=== PATIENT | female | born 1935 | race Caucasian/White ===

== ENCOUNTER 2020-02-19 11:20 | Outpatient (CLI) | payer MEDICARE, OTHER, SELFPAY ==
--- NOTE | 2020-02-19 11:32 | MM_ITS ---
WS: [id number] RIGHT DIGITAL MAMMOGRAPHY WITH CAD CLINICAL INFORMATION: HX OF BREAST CA;LT MAST COMPARISON: 019 and TECHNIQUE: 3 views of the right breast were obtained. FINDINGS: Scattered fibroglandular densities of the right breast. Vascular calcifications. Right breast is unch anged in appearance. No suspicious focal mass, asymmetry, calcifications, or architectural distortion. No evidence of erika gnancy. MM/[place] [id number] IMPRESSION: BI-RADS: 2-Benign FOLLOW UP: 1 Year Follow-up Recommend return to annual diagnostic mammography.
== END 2020-02-19 11:21 | disposition home or self-care (01) ==
LOC: RADSHAW 11:31
PROVIDERS: PCP Family Medicine; Visit Provider Family Medicine
DX: Z85.3 Personal history of malignant neoplasm of breast (principal)
CPT/HCPCS: 77065

== ENCOUNTER 2021-03-01 13:33 | Outpatient (CLI) | payer MEDICARE, OTHER, SELFPAY ==
--- NOTE | 2021-03-01 13:42 | MM_ITS ---
WS: [id number] RIGHT DIGITAL MAMMOGRAPHY WITH CAD CLINICAL INFORMATION: HX OF BREAST CA;LT MASTECTOMY HISTORY: COMPARISON: February 19, 2020 TECHNIQUE: 4 views of the right breast were obtained. FINDINGS: Scattered fibroglandular densities of the right breast. Punctate and lucent centered calcifications. Vascular calcification. No suspicious focal mass, asymmetry, calcifications, or architectural distortion. No evidence of erika gnancy. MM/[place] [id number] IMPRESSION: BI-RADS: 2-Benign FOLLOW UP: 1 Year Follow-up Recommend return to annual screening mammography.
== END 2021-03-01 13:34 | disposition home or self-care (01) ==
LOC: RADSHAW 13:40
PROVIDERS: PCP Family Medicine; Visit Provider Family Medicine
DX: Z85.3 Personal history of malignant neoplasm of breast (principal); Z90.12 Acquired absence of left breast and nipple
CPT/HCPCS: 77065

== ENCOUNTER 2022-03-11 10:49 | Outpatient (CLI) | payer MEDICARE, OTHER, SELFPAY ==
--- NOTE | 2022-03-11 10:54 | MM_ITS ---
WS: [id number] VIEWS: MLO, CC, and ML views of the right breast. 3D digital tomosynthesis is also included in this exam. Comparison made with prior exam of 01/04/2016, 01/04/2017, 01/05/2018, 01/11/2019, 02/19/2020, 03/01/2021. . Findings: There was no sign of mass, architectural distortion or suspicious calcification in the right breast. Scattered fibroglandular densities MM/[place] [id number] Impression: BI-RADS: 2-Benign FOLLOW-UP: 1 Year Follow-up This mammogram was also analyzed by the Computer Aided Detection System R2 Imag e Aluminum Container Tester.
== END 2022-03-11 10:50 | disposition home or self-care (01) ==
LOC: RAD 10:52
PROVIDERS: PCP Family Medicine; Visit Provider Family Medicine
DX: Z85.3 Personal history of malignant neoplasm of breast (principal)
CPT/HCPCS: 77061

== ENCOUNTER 2023-01-02 17:48 | Inpatient (IN) | payer MEDICARE, OTHER, SELFPAY ==
[2023-01-02] VITALS (21 sets, daily range): BP systolic 116–169; BP diastolic 36–72; PULSE 37–68; RESP 16–22; TEMP 36.4–36.6; O2SAT 92–96; BMI 31.9; BMI 27.2
--- NOTE | 2023-01-02 17:57 | CTR_ITS ---
PROCEDURE INFORMATION: Exam: CT Head Without Contrast Exam date and time: 01/02/2023 6:10 PM Age: 87 years old Clinical indication: Altered mental status/memory loss; Additional info: AMS TECHNIQUE: Imaging protocol: Computed tomography of the head without contrast. Radiation optimization: All CT scans at this facility use at least one of these dose optimization techniques: automated exposure control; mA and/or kV adjustment per patient size (includes targeted exams where dose is matched to clinical indication); or iterative reconstruction. REPORTING DATA: Count of CT and Cardiac NM exams in prior 12 months: This patient has received 0 known CTs and 0 known cardiac nuclear medicine studies in the 12 months prior to the current study. COMPARISON: 1. MR head wo/w contrast 10/19/2016 12:[address] head wo contrast 10/18/2016 10:54 AM RADIATION DOSE METRICS: Total DLP (mGy-cm): 1168.8 FINDINGS: Brain: No acute intracranial hemorrhage, acute large territory infarct, or obvious mass lesion. Age appropriate diffuse cerebral volume loss. Chronic white matter changes, likely to be chronic small vessel ischemic changes. Old lacunar infarct near the genu of the left internal capsule. Cerebral ventricles: No ventriculomegaly. Paranasal sinuses: Visualized sinuses are unremarkable. No fluid levels. Mastoid air cells: Visualized mastoid air cells are well aerated. Bones/joints: Unremarkable. No acute fracture. Soft tissues: Unremarkable. CT/CT head wo con* [id number] IMPRESSION: No acute intracranial abnormality.
--- NOTE | 2023-01-02 17:57 | XRR_ITS ---
PROCEDURE INFORMATION: Exam: XR Chest Exam date and time: 01/02/2023 6:04 PM Age: 87 years old Clinical indication: Other: Weakness; Additional info: AMS TECHNIQUE: Imaging protocol: Radiologic exam of the chest. Views: 1 view. COMPARISON: CR XR chest 1V [id number] 10/18/2016 10:20 AM FINDINGS: Lungs: Retrocardiac area not well seen, so difficult to exclude left basilar atelectasis or consolidation. Lungs are otherwise clear. Pleural spaces: Unremarkable. No pleural effusion. No pneumothorax. Heart/Mediastinum: Cardiomediastinal silhouette is stable with a large hiatal hernia. Bones/joints: No acute osseous abnormality. Soft tissues: Stable postoperative changes in the left breast/axilla. XR/XR chest 1V portable [id number] IMPRESSION: 1. Cardiomediastinal silhouette is stable with a large hiatal hernia. 2. Retrocardiac area not well seen, so difficult to exclude left basilar atelectasis or consolidation.
--- NOTE | 2023-01-02 17:57 | ECG_ITS ---
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 Measurements Intervals [place] Rate: 38 P: 0 [place]: 0 QRS: 80 QRSD: 126 T: 21 QT: 493 QTc: 394 Interpretive Statements JUNCTIONAL RHYTHM RIGHT BUNDLE BRANCH BLOCK [120+ ms QRS DURATION, UPRIGHT V1, 40+ ms S IN I/aVL/V4/V5/V6] CRITICAL TEST RESULT Compared to ECG 10/18/2016 15:35:10 Right bundle-branch block now present Sinus bradycardia no longer present Electronically Signed On 01-03-2023 6:43:22 CDT by Sarah Earl M.D. [id number]
--- NOTE | 2023-01-02 18:28 | ED_ITS ---
HPI - Weakness General: Chief complaint: Weakness Stated complaint: weakness Time Seen by Provider: 01/02/23 17:53 Source: EMS Mode of arrival: EMS Limitations: altered mental status History of Present Illness: 87-year-old female here from home with EMS complaint of EMS was weakness and they state that family had called because she had been increasingly weak throughout the day not been able to get her up from I can get from EMS I have not been able speak to family last known well was yesterday. He states that also know she was pale. She is bradycardic by EMS and the junctional rhythm in the 30s blood pressure is normal she is quite confused when I interviewed her she is able to tell me her name but unable to answer any questions she does not know where she is she does not know the year and does not make much sense at all. 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 and left distal vertebral artery, nonstenotic atherosclerotic plaque of the origin of the right cervical internal carotid artery COPD (chronic obstructive pulmonary disease) CVA (cerebral vascular accident) 2017 left basal ganglia Diabetes mellitus, type II History of echocardiogram 2017 EF 60%, grade I/IV diastolic dysfunction Hyperlipidemia Hypertension Macular degeneration Osteoarthritis of left knee Osteoarthritis of right knee Peripheral vascular disease Surgical History (Updated 01/02/23 @ 20:45 by Priti Long MD) History of hernia repair History of hysterectomy History of left mastectomy S/P peripheral artery angioplasty with stent placement left leg 2010 Family History (Updated 01/02/23 @ 20:46 by Priti Long MD) Mother Stroke Brain tumor Social History (Updated 01/02/23 @ 20:46 by Priti Long MD) 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 Physical Exam Const: COMMON NORMALS: negative for patient oriented x3 GENERAL APPEARANCE: ill appearing and frail appearing HENMT: COMMON NORMALS: normocephalic and atraumatic HEAD & SCALP: normocephalic and atraumatic Eye: COMMON NORMALS: Equal, round and reactive pupils present and EOMs intact bilaterally PUPIL: Yes Equal, round and reactive pupils present Neck/C-Spine: COMMON NORMALS: full ROM and supple Chest: COMMONS NORMALS: normal inspection of the chest Resp: COMMON NORMALS: normal respiratory effort Cardio: COMMON NORMALS: No murmurs present (Cardio) RATE: bradycardic GI: INSPECTION: Yes normal to inspection Extremity: COMMON NORMALS: normal to inspection and full ROM Neuro: COMMON NORMALS: moves all extremities; negative for patient oriented x3 Psych: COMMON NORMALS: cooperative; negative for mental status grossly normal and negative for Normal thought process present THOUGHT PROCESS: abnormal Skin: COMMON NORMALS: no rashes or lesions noted and no wounds GENERAL SKIN EXAM: no rashes or lesions noted Course Vital Signs: Vital signs: Vital Signs Temperature 97.8 F 01/02/23 17:52 Pulse Rate 57 L 01/02/23 20:41 Respiratory Rate 22 H 01/02/23 20:41 Blood Pressure 123/59 01/02/23 20:41 Pulse Oximetry 96 01/02/23 20:41 Oxygen Delivery Me thod Room Air 01/02/23 20:11 MDM - Weakness Medical Decision Making Patient presents here with altered mental status she is also bradycardic her bradycardia is likely due to her hyperkalemia I did give her atropine also gave her calcium gluconate along with insulin and D50 had some mild anemia did transfuse her 1 unit did a rectal exam her stools brown slightly Hemoccult positive I believe her anemia is likely chronic spoke to family at length 81 to make patient DNR spoke to the hospitalist will admit to the ICU at this time. Medical Records I reviewed the patient's medical records. Lab Data I reviewed the patient's lab results. 01/02/23 18:28 01/02/23 19:28 Radiology Impressions Chest X-Ray 01/02/23 17:57 IMPRESSION: 1. Cardiomediastinal silhouette is stable with a large hiatal hernia. 2. Retrocardiac area not well seen, so difficult to exclude left basilar atelectasis or consolidation. Head CT 01/02/23 17:57 IMPRESSION: No acute intracranial abnormality. Laboratory Results WBC 9.0 10^3/uL (4.0-10.0) 01/02/23 18:28 RBC 2.38 10^6/uL (4.1-5.3) L 01/02/23 18:28 Hgb 7.4 g/dL (11.5-15.3) L 01/02/23: Hct 24.7 % (37.0-47.0) L 01/02/23 MCV 103.8 fl (81-99) H 01/02/23: MCH 31.1 pg (28.0-34.0) 01/02/23: MCHC 30.0 g/dL (30.0-36.0) 01/02/23: RDW 13.9 % (12.1-15.1) 01/02/23: Plt Count 183 10^3/cmm (130-400) 01/02/23 MPV 10.1 fL (7.4-10.4) 01/02/23 Neut % (Auto) 74.9 % 01/02/23: Lymph % (Auto) 16.3 % 01/02/23: [place] % (Auto) 8.0 % 01/02/23: Eos % (Auto) 0.0 % 01/02/23 Baso % (Auto) 0.2 % 01/02/23 Neut # (Auto) 6.73 10^3/uL (1.8-7.7) 01/02/23 Lymph # (Auto) 1.5 10^3/uL (0.8-4.8) 01/02/23 Dodge # (Auto) 0.7 10^3/uL (0.2-0.9) 01/02/23: Eos # (Auto) 0.0 10^3/uL (0.0-0.8) 01/02/23: Baso # (Auto) 0.0 10^3/uL (0.0-0.1) 01/02/23 Nucleated RBC % (auto) 0.4 % 01/02/23 Nucleated RBCs # 0.0 /100WBC 01/02/23: PT 15.30 SECONDS (12.1-14.9) H 01/02/23: INR 1.17 (0.8-1.2) 08/21/23 18:28 Specimen Type Arterial 01/02/23 19:48 Sample Site Brachial, left 01/02/23 19:48 ABG pH 7.39 (7.35-7.45) 01/02/23 19:48 ABG pCO2 27.8 mmHg (35-45) L 01/02/23 19:48 ABG pO2 67.9 mmHg (80.0-100.0) L 01/02/23 19:48 ABG HCO3 16.7 mmol/L (22-26) L 01/02/23 19:48 ABG Base Excess -7.5 mmol/L (-2.0-2.0) L 01/02/23 19:48 Jayy Test N/a 01/02/23 19:48 Hematocrit 20.8 % (37-47) L 01/02/23 19:48 O2 Delivery Device Nc 01/02/23 19:48 O2 Liters/Min 2.0 % 01/02/23 19:48 FiO2 28.0 % 01/02/23 19:48 Survey Technician ID [email or web address] 01/02/23 19:48 Sodium 135 mmol/L (136-145) L 01/02/23 18:28 Potassium 6.6 mmol/L (3.5-5.1) H* 01/02/23 19:28 Chloride 107 mmol/L (98-107) 01/02/23 18:28 Carbon Dioxide 13 mmol/L (22-29) L 01/02/23 18:28 Anion Gap 22.1 (5-19) H 01/02/23 18:28 BUN 46 mg/dL (8-23) H 01/02/23 18:28 Creatinine 1.8 mg/dL (0.5-0.9) H 01/02/23 18:28 GFR Calculation Not Reportable 01/02/23 18:28 Glucose 221 mg/dL (65-115) H 01/02/23 18:28 POC Glucose 250 mg/dL (70-110) H 01/02/23 18:37 Calculated Osmolality 299 mOsm/kg (285-295) H 01/02/23 18:28 Calcium 8.7 mg/dL (8.5-10.5) 01/02/23 18:28 Magnesium 1.4 mg/dL (1.7-2.3) L 01/02/23 18:28 Total Bilirubin 0.3 mg/dL (0.15-1.2) 01/02/23 18:28 AST 56 U/L (0-32) H 01/02/23 18:28 ALT 48 U/L (0-33) H 01/02/23 18:28 Alkaline Phosphatase 46 U/L (35-105) 01/02/23 18:28 Troponin T Baseline 35 ng/L (0-10) H 01/02/23 18:28 Total Protein 5.7 g/dL (6.6-8.7) L 01/02/23 18:28 Albumin 3.5 g/dL (3.5-5.2) 01/02/23 18:28 Globulin 2.2 g/dL (1.3-4.6) 01/02/23 18:28 Blood Type A Positive 01/02/23 19:24 Rho(D) Type Positive 01/02/23 19:24 Antibody Screen Negative 01/02/23 19:24 Crossmatch See Detail 01/02/23 19:24 EKG Data EKG 1: I personally reviewed and interpreted this EKG as follows: EKG interpretation date: 01/02/23 EKG interpretation time: 18:01 Interpretation: bradycardicia junctional hr [address] elevation qrs 126 qtc 414 Critical Care Time Critical Care Time: Critical Care Time: Yes Total Critical Care Time: 55 Attestation: The high probability of a clinically significant, sudden or life threatening deterioration of the patient's renal system(s) required my full and direct attention, intervention and personal management. The critical care time is as shown. This time is in addition to time spent performing any reported procedures but includes the following: [x] Data and vital sign review and interpretation [x] Patient assessment, examination and intervention [x] Documentation [x] Medication orders and management Discharge Plan Discharge Patient Disposition: Admitted As Inpatient Admit Provider: Priti Long Clinical Impression: Anemia, Acute hyperkalemia, Bradycardia, Altered mental status Condition: Stable Coding Level of Care Code ED Client Support Associate for Bessieg Santino
[2023-01-02 18:35] LABS: Basophils % 0.2 %; Hematocrit 24.7 % (37.0-47.0); Hemoglobin 7.4 g/dL (11.5-15.3); Lymphocytes # 1.5 10^3/uL (0.8-4.8); Lymphocytes % 16.3 %; Mean Corpuscular Hemoglobin 31.1 pg (28.0-34.0); Mean Corpuscular Volume 103.8 fl (81-99); Mean Platelet Volume 10.1 fL (7.4-10.4); Monocytes # 0.7 10^3/uL (0.2-0.9); Neutrophils # 6.73 10^3/uL (1.8-7.7); Neutrophils % 74.9 %; Nucleated Red Blood Cells % 0.4 %; Platelet Count 183 10^3/cmm (130-400); Red Blood Count 2.38 10^6/uL (4.1-5.3); Red Cell Distribution Width 13.9 % (12.1-15.1)
[2023-01-02 18:41] LABS: Glucose Point of Care 250 mg/dL (70-110)
[2023-01-02 18:51] LABS: INR 1.17 (0.8-1.2)
[2023-01-02 18:59] LABS: Troponin(5th) Baseline 35 ng/L (0-10)
[2023-01-02 19:13] LABS: Alanine Aminotransferase 48 U/L (0-33); Albumin Level 3.5 g/dL (3.5-5.2); Alkaline Phosphatase 46 U/L (35-105); Blood Urea Nitrogen 46 mg/dL (8-23); Calcium 8.7 mg/dL (8.5-10.5); Carbon Dioxide 13 mmol/L (22-29); Chloride 107 mmol/L (98-107); Globulin 2.2 g/dL (1.3-4.6); Glucose 221 mg/dL (65-115); Magnesium 1.4 mg/dL (1.7-2.3); Osmolality Calculated 299 mOsm/kg (285-295); Sodium 135 mmol/L (136-145); Total Bilirubin 0.3 mg/dL (0.15-1.2); Total Protein 5.7 g/dL (6.6-8.7)
[2023-01-02 19:24] LABS: Anion Gap 22.1 (5-19); Aspartate Amino Transferase 56 U/L (0-32)
[2023-01-02 19:25] LABS: Potassium 7.1 mmol/L (3.5-5.1)
[2023-01-02] MEDS: sodium chloride 0.9% 500 ML 999 ML IV (19:28)
[2023-01-02] MEDS: atropine 0.1 mg/mL Syr 10 mL 0.5 MG IVP (19:30)
[2023-01-02] MEDS: calcium gluconate 0.1 gm/mL 10% SDV 10mL 1 GM IVP (19:51)
[2023-01-02] MEDS: dextrose 50% syringe 50 mL IVP (19:52)
--- NOTE | 2023-01-02 19:57 | ECG_ITS ---
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 Measurements Intervals [place] Rate: 45 P: 0 [place]: 0 QRS: 75 QRSD: 117 T: -14 QT: 466 QTc: 407 Interpretive Statements SUPRAVENTRICULAR BRADYCARDIA INCOMPLETE RIGHT BUNDLE BRANCH BLOCK [90+ ms QRS DURATION, TERMINAL R IN V1/V2, 40+ ms S IN I/aVL/V4/V5/V6] ST DEVIATION AND MODERATE T-WAVE ABNORMALITY, CONSIDER ANTERIOR ISCHEMIA [-0.1+ mV T-WAVE IN V3/V4] Compared to ECG 01/02/2023 18:01:09 Incomplete right bundle-branch block now present T-wave abnormality now present Possible ischemia now present Right bundle-branch block no longer present Electronically Signed On 01-03-2023 6:58:36 CDT by Sarah Earl M.D. [id number]
[2023-01-02 19:58] LABS: ABG PCO2 27.8 mmHg (35-45); ABG PH Result 7.39 (7.35-7.45); Arterial Blood Gas Hematocrit 20.8 % (37-47); Base Excess ABG -7.5 mmol/L (-2.0-2.0); Blood Gas Sample Site Brachial, left; Blood Gas Sample Type Arterial; HCO3 ABG 16.7 mmol/L (22-26); Oxygen Device NC; PO2 ABG 67.9 mmHg (80.0-100.0)
[2023-01-02 20:06] LABS: Potassium 6.6 mmol/L (3.5-5.1)
[2023-01-02] MEDS: sodium bicarbonate 1 mEq/mL SDV 50mL 50 MEQ IVP (20:09)
[2023-01-02] MEDS: insulin regular-human 100 units/1 mL 10 UNIT IVP (20:15)
--- NOTE | 2023-01-02 20:21 | PM.HP ---
Providers/Chief Complaint Admitting Physician: Priti Long MD Primary Care Provider: Lb Akers MD Chief Complaint: weakness History of Present Illness Niya Gupta is a 87 year old female brought in by EMS due to complaints of weakness and confusion. She was in her usual state of health yesterday. This morning she seemed to be moving slower than normal but was able to get around independently using her cane in the early hours of the day. As the day progressed, according to her Carlos, she slowed down more more and was not able to walk around without assistance or attend her her usual ADLs quite the same way. She also seem to get more confused not able to answer questions. Carlos discussed things with his daughter who is a nurse and they called EMS. When EMS arrived her heart rate was noted to be in the 30s. Junctional rhythm. She is on chronic beta-blockade in the form of metoprolol. No clear history of previous arrhythmias or known coronary artery disease from available historical information. She has had some carotid artery disease/peripheral vascular disease previously identified and has known hypertension and history of hyperlipidemia. I believe the metoprolol is prescribed for hypertension. She has taken it regularly including today. No recent dosage changes. On arrival to the emergency room and blood pressure 116/36 with pulse ox of 92% on room air. Work-up ensued that demonstrated a potassium of 7.1 and creatinine of 1.8. Her hemoglobin was also noted to be low at 4. Last available comparative labs in our records are from 2017 showing a hemoglobin of 13.4 and a creatinine of 1.2. Stool per emergency room provider was brown and weakly Hemoccult positive. Patient herself has macular degeneration and very limited vision. She is unable to note any differences in stooling character. Denies constipation or diarrhea. She does complain of some left lower quadrant abdominal pain currently though I am unable to get indication of severity or chronicity from her currently. There have been no known episodes of nausea or vomiting per her and no complaints of abdominal pain or bowel problems mentioned. She has not had any urinary complaints though Carlos mentioned that she goes frequently. Repeat potassium level was still elevated at 6.6. Started a couple of liters of normal saline and given insulin and D50 plus calcium gluconate and bicarb. Twelve-lead EKG showed a regular bradycardic rhythm at 38 bpm with no discernible P waves. Repeat EKG with heart rate in the mid 40s showed similar pattern. Baseline troponin was 35 with a similar 2-hour delta. Gradually with treatment administered heart rate improved into the 60s. Blood pressure also improved. Review of home medications with external records and report from indicates that she is on hydrochlorothiazide, Aldactone, losartan in addition to metoprolol. Prior to today well patient has had a gradual decline as would be expected for somebody her age she has been able to get around independently. Issues today are quite new for her. In addition to the weakness and confusion, her indicated that she was quite pale compared to baseline. No reports of any bleeding is known. She has had a previous colonoscopy some years ago that was unrevealing. She is not on any blood thinners. She is on clopidogrel. No report of any [id number] NSAID use. Carlos has noted that for the past week or so Niya's legs have been more swollen than usual the right more so than the left. He tries to get her to elevate them but she does not always do that. She has a history of arthritis of both knees. She has had intra-articular steroids to both knees but no other steroid prescriptions or administrations. In talking with her she has been having dyspnea on exertion. Denies any chest pain. She is coming around and starting to communicate more but history is still quite limited. With her presentation request was made for admission for further care. She did receive one dose of atropine in the ED given degree of symptomatic. Review of Systems General: Reports: Other (ROS as per HPI or as otherwise noted here; limited by current condition) Medications/Allergies Home Medications Medication Instructions Recorded Confirmed Last Taken Type clopidogrel 75 mg tablet 75 mg PO DAILY 03/03/22 12/13/22 Unknown History metformin 500 mg tablet 500 mg PO BID 03/03/22 12/13/22 Unknown History spironolactone 25 mg tablet 25 mg PO BID 03/03/22 12/13/22 Unknown History lovastatin 40 mg tablet See Rx Instructions .Route 09/20/22 12/13/22 Unknown Rx .COMPLEX #90 tabs hydrochlorothiazide 25 mg tablet See Rx Instructions .Route 12/07/22 12/13/22 Unknown Rx .COMPLEX #90 tabs metoprolol tartrate 100 mg tablet See Rx Instructions .Route 12/07/22 12/13/22 Unknown Rx .COMPLEX #180 tabs amlodipine 5 mg tablet See Rx Instructions .Route 12/27/22 Unknown Rx .COMPLEX #180 tabs gabapentin 300 mg capsule See Rx Instructions .Route 12/27/22 Unknown Rx .COMPLEX #270 caps glimepiride 1 mg tablet See Rx Instructions .Route 12/27/22 Unknown Rx .COMPLEX #180 tabs losartan 50 mg tablet See Rx Instructions .Route 12/27/22 Unknown Rx .COMPLEX #180 tabs Allergies Allergy/AdvReac Type Severity Reaction Status Date / Time propoxyphene Allergy Severe Unknown Verified 12/20/21 07:12 [From [facility]] Additional Medication Information THIS IS PATIENTS EXTERNAL MEDICATION LIST which I reviewed with . She has been out of glimepiride for about 4 days but otherwise this is an accurate list. Carlos sets up all of Niya's medications. Very unlikely that she would have taken more than prescribed at any point in time and no evidence that he is aware of to suggest such. She is unable to read which is why he manages medicines for her. 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 and left distal vertebral artery, nonstenotic atherosclerotic plaque of the origin of the right cervical internal carotid artery CVA (cerebral vascular accident) 2017 left basal ganglia Diabetes mellitus, type II History of echocardiogram 2017 EF 60%, grade I/IV diastolic dysfunction Hyperlipidemia Hypertension Macular degeneration Osteoarthritis of left knee Osteoarthritis of right knee Peripheral vascular disease Surgical History (Updated 01/02/23 @ 20:45 by Priti Long MD) History of hernia repair History of hysterectomy History of left mastectomy S/P peripheral artery angioplasty with stent placement left leg 2010 Family History (Updated 01/02/23 @ 20:46 by Priti Long MD) Mother Stroke Brain tumor Social History (Updated 01/02/23 @ 20:46 by Priti Long MD) 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 She is oriented to person and able to answer simple questions with short responses but not necessarily oriented to place or situation at this time. Normocephalic. Extraocular movements are intact. Conjunctive a are pale. Oral mucosa are also pale. Dentures noted. Neck is supple. Lungs are clear anteriorly but decreased at both bases. Cardiovascular exam reveals a regular rhythm in the 60s. Heart sounds are slightly distant. No murmurs or rubs noted. Abdomen is soft with positive bowel sounds. Tenderness noted in the left lower quadrant without any rebound or guarding. Evidence of previous left mastectomy with breast reconstruction noted though scars are difficult to visualize. There is some swelling of the left upper arm compared to the right upper arm. Without knowledge of prior mastectomy, 2 IVs were placed in the left upper extremity. Both lower extremities with some pitting edema left 1+, right 2+. Right lower extremity is approximately a centimeter and a half larger in diameter than left lower extremity. No palpable cords. Brisk capillary refill to both feet. Distal pulses are 1+ and equal bilaterally. Skin is dry. Overall pale. No large areas of bruising noted. Speech is clear. Face is symmetric. Moves all extremities. Data 01/02/23 18:28 01/02/23 19:28 Other Labs: Radiology Impressions Chest X-Ray 01/02/23 17:57 IMPRESSION: 1. Cardiomediastinal silhouette is stable with a large hiatal hernia. 2. Retrocardiac area not well seen, so difficult to exclude left basilar atelectasis or consolidation. Head CT 01/02/23 17:57 IMPRESSION: No acute intracranial abnormality. Laboratory Tests 01/02/23 18:28 Potassium 7.1 H* Laboratory Results WBC 9.0 10^3/uL (4.0-10.0) 01/02/23 18:28 RBC 2.38 10^6/uL (4.1-5.3) L 01/02/23 18:28 Hgb 7.4 g/dL (11.5-15.3) L 01/02/23 18:28 Hct 24.7 % (37.0-47.0) L 01/02/23 18: MCV 103.8 fl (81-99) H 01/02/23 18: MCH 31.1 pg (28.0-34.0) 01/02/23 18: MCHC 30.0 g/dL (30.0-36.0) 01/02/23 18: RDW 13.9 % (12.1-15.1) 01/02/23: Plt Count 183 10^3/cmm (130-400) 01/02/23 18: MPV 10.1 fL (7.4-10.4) 01/02/23 18: Neut % (Auto) 74.9 % 01/02/23 18: Lymph % (Auto) 16.3 % 01/02/23 18: [place] % (Auto) 8.0 % 01/02/23: Eos % (Auto) 0.0 % 01/02/23 18: Baso % (Auto) 0.2 % 01/02/23: Neut # (Auto) 6.73 10^3/uL (1.8-7.7) 01/02/23 18: Lymph # (Auto) 1.5 10^3/uL (0.8-4.8) 01/02/23 18: [place] # (Auto) 0.7 10^3/uL (0.2-0.9) 01/02/23 18: Eos # (Auto) 0.0 10^3/uL (0.0-0.8) 01/02/23: Baso # (Auto) 0.0 10^3/uL (0.0-0.1) 01/02/23: Nucleated RBC % (auto) 0.4 % 01/02/23: Nucleated RBCs # 0.0 /100WBC 01/02/23 18: PT 15.30 SECONDS (12.1-14.9) H 01/02/23 18: INR 1.17 (0.8-1.2) 01/02/23 18: Specimen Type Arterial 01/02/23 19:48 Sample Site Brachial, left 01/02/23 19:48 ABG pH 7.39 (7.35-7.45) 01/02/23 19:48 ABG pCO2 27.8 mmHg (35-45) L 01/02/23 19:48 ABG pO2 67.9 mmHg (80.0-100.0) L 01/02/23 19:48 ABG HCO3 16.7 mmol/L (22-26) L 01/02/23 19:48 ABG Base Excess -7.5 mmol/L (-2.0-2.0) L 01/02/23 19:48 Jayy Test N/a 01/02/23 19:48 Hematocrit 20.8 % (37-47) L 01/02/23 19:48 O2 Delivery Device Nc 01/02/23 19:48 O2 Liters/Min 2.0 % 01/02/23 19:48 FiO2 28.0 % 01/02/23 19:48 Director Of Hotel ID [email or web address] 01/02/23 19:48 Sodium 135 mmol/L (136-145) L 01/02/23 18:28 Potassium 6.6 mmol/L (3.5-5.1) H* 01/02/23 19:28 Chloride 107 mmol/L (98-107) 01/02/23 18:28 Carbon Dioxide 13 mmol/L (22-29) L 01/02/23 18:28 Anion Gap 22.1 (5-19) H 01/02/23 18:28 BUN 46 mg/dL (8-23) H 01/02/23 18:28 Creatinine 1.8 mg/dL (0.5-0.9) H 01/02/23 18:28 GFR Calculation Not Reportable 01/02/23 18:28 Glucose 221 mg/dL (65-115) H 01/02/23 18:28 POC Glucose 169 mg/dL (70-110) H 01/02/23 22:26 Calculated Osmolality 299 mOsm/kg (285-295) H 01/02/23 18:28 Calcium 8.7 mg/dL (8.5-10.5) 01/02/23 18:28 Magnesium 1.4 mg/dL (1.7-2.3) L 01/02/23 18:28 Total Bilirubin 0.3 mg/dL (0.15-1.2) 01/02/23 18:28 AST 56 U/L (0-32) H 01/02/23 18:28 ALT 48 U/L (0-33) H 01/02/23 18:28 Alkaline Phosphatase 46 U/L (35-105) 01/02/23 18:28 Troponin T Baseline 35 ng/L (0-10) H 01/02/23 18:28 Troponin T 120 Minute 34.10 ng/L (0-10) H 01/02/23 20:55 Delta Troponin T -0.90 ABS# (0-10) L 01/02/23 20:55 Total Protein 5.7 g/dL (6.6-8.7) L 01/02/23 18:28 Albumin 3.5 g/dL (3.5-5.2) 01/02/23 18:28 Globulin 2.2 g/dL (1.3-4.6) 01/02/23 18:28 Urine Color Yellow (Yellow) 01/02/23 22:05 Urine Appearance Clear (CLEAR) 01/02/23 22:05 Urine pH 6 (5-7) 01/02/23 22:05 Ur Specific [place] 1.010 (1.005-1.030) 01/02/23 22:05 Urine Protein Neg (Negative) 01/02/23 22:05 Urine Glucose (UA) Norm (Normal) 01/02/23 22:05 Urine Ketones Negative (Negative) 01/02/23 22:05 Urine Blood Neg (Negative) 01/02/23 22:05 Urine Nitrate Negative (Negative) 01/02/23 22:05 Urine Bilirubin Neg (Negative) 01/02/23 22:05 Urine Urobilinogen Neg mg/dL (Negative) 01/02/23 22:05 Ur Leukocyte Esterase 1+ (Negative) H 01/02/23 22:05 Urine RBC 0-4 /hpf (0-2) H 01/02/23 22:05 Urine WBC 0-4 /hpf (0-5) H 01/02/23 22:05 Ur Squamous Epith Cells 0-4 /hpf (0-5) H 01/02/23 22:05 Amorphous Sediment Not Reportable 01/02/23 22:05 Urine Bacteria 2+ /hpf (NONE) H 01/02/23 22:05 Blood Type A Positive 01/02/23 19:24 Rho(D) Type Positive 01/02/23 19:24 Antibody Screen Negative 01/02/23 19:24 Crossmatch See Detail 01/02/23 19:24 A&P Assessment and plan (1) Altered mental status: Confusion/disorientation along with generalized weakness occurring somewhat acutely today. Most likely secondary to bradycardia in the setting of metabolic abnormalities including hyperkalemia, acute kidney injury and hypomagnesemia. (2) Bradycardia: Junctional/supraventricular in a patient without a history of such. Heart rates as low as in the 30s initially. She is on chronic beta-blockade and did take it today. Clinically appears exacerbated by hyperkalemia in particular. Symptomatic with acute alteration in mental status, acute weakness, shortness of breath. Improving. (3) Acute hyperkalemia: In the setting of what looks to be acute kidney injury in a patient also on spironolactone and losartan. Symptomatic from this with EKG changes. Has responded to initial treatment administration in the emergency room and repeat level showing improvement though remains elevated. Unclear at this time if medications or acute kidney injury are the primary factor here. (4) Anemia: With macrocytosis. Last available comparative labs are from 2017 when hemoglobin was normal. I would expect iron deficiency given kidney disease and heme positive stools. She complains of left lower quadrant abdominal pain. No reports of any epigastric pain. Other than intra-articular steroids, no chronic use of NSAIDs or other definitive gastric irritants. She is on antiplatelet therapy in the form of Plavix. General weakness and shortness of breath has been gradually worsening over time from the information I been able to obtain is most likely secondary to progressive anemia. Had colonoscopy some years ago that was unremarkable. Platelets are normal. INR not elevated. (5) Acute kidney injury: Based on presentation. No recent comparative labs available. Chronic kidney disease that has progressed from available labs from 2017 is certainly a possibility. She has hypertension and diabetes. She is on 2 diuretics and ARB that might contribute acutely to kidney injury in the right setting. Most likely secondary to ATN from medications or hypotension. Has a associated anion gap acidosis which I currently attribute to acute kidney injury. (6) Edema of right lower extremity: Present on admission, noticeably more edematous than left lower extremity. Concern for DVT or other obstructive process, which given anemia presently would be difficult to treat. (7) Hypertension: Chronically on multiple medications including losartan, amlodipine, hydrochlorothiazide, Aldactone and metoprolol. Blood pressures at presentation as low as 110 systolic. Has not been hypotensive here though unidentified episodes of such are within the differential contributing to overall presentation. (8) Diabetes mellitus, type II: Chronically on metformin and glimepiride, she has been out of glimepiride for about 4 days (9) Hyperlipidemia: Chronically on statin therapy (10) Macular degeneration: Involving both eyes, not able to see well enough to read or provide description of stool or urine Plan Hypomagnesemia Mild transaminitis Inpatient admission ICU care at least initially Telemetry monitoring Continue serial cardiac enzymes and EKGs Hold metoprolol Continue IV fluids Hold ARB and Aldactone Status post insulin and D50, calcium gluconate and bicarbonate in the emergency room. Recheck chemistries in the morning, sooner if recurrent severe bradycardia or other concerning changes If bradycardia persists with improved potassium level and holding of metoprolol will consider cardiology evaluation Replace magnesium Nath catheter for close monitoring of urine output Hold hydrochlorothiazide Repeat renal function in am Monitor respiratory status with fluid administration and holding of diuretics Check TIBC, B12 and folate levels Currently receiving transfusion ordered from ER Repeat hemoglobin in the morning after transfusion With fluids actual baseline hemoglobin may have been lower BID PPI Hold plavix presently Could consider endoscopy given heme positive stools but with comorbid acute and chronic issues along with advanced age, medical management may be the most desirable approach per discussion with Monitor LLQ abdominal pain for worsening and indication to eval further Stool softners Venous duplex RLE Monitor blood pressures Can continue amlodipine as needed for hypertension as blood pressures allow Check CK level Currently holding statin therapy Hold metformin and glimepiride with acute issues; sliding scale insulin as needed for diabetes Holding gabapentin presently PT evalualation Neurochecks q shift S/P CT head in ER Supportive care otherwise Plans were discussed with patient's and he was given an opportunity to ask questions. Also reviewed with nursing staff. VTE prophylaxis: SCDs GI Prophylaxis: Twice daily PPI Telemetry: Currently warranted secondary to bradycardia at presentation Nath: Currently ordered for close monitoring of urine output in a patient with acute kidney injury and electrolyte abnormalities receiving fluids who has had several diuretics and antihypertensives held Line(s): Has 2 peripheral IVs currently in the left arm which will need to be changed over to right arm or other locations given history of left mastectomy Disposition plan: Currently anticipate discharge home with . Will need close outpatient follow-up with primary care provider. Depending on clinical course and determine needs may benefit from short-term home health for blood pressure and heart rate checks, follow-up laboratory studies along with medication management plus or minus therapy. Code Status: To be allowed natural although ICU care and treatment for current condition as outlined desired. Attestations Medical Necessity Statement*: Anticipated stay greater than two midnights in this patient with symptomatic bradycardia and hyperkalemia along with acute kidney injury and other issues as noted above. She had acute change today and is currently requiring IV fluids, holding of essentially all but one of her medications, cardiac monitoring and other care as described. Without such intervention at risk of further acute decline up to and including the possibility of . and High Time for a total of 85 minutes, includes reviewing past or interval history, examining/interviewing patient, placing orders, updating patient/family/other support, discussing plan of care with staff and documenting encounter Diagnoses Altered mental status R41.82 Bradycardia R00.1 Acute hyperkalemia E87.5 Anemia D64.9 Acute kidney injury N17.9 Edema of right lower extremity R60.0 Hypertension I10 Diabetes mellitus, type II E11.9 Hyperlipidemia E78.5 Macular degeneration H35.30
--- NOTE | 2023-01-02 22:18 | PC.NURSE ---
Addendum entered by Elisabeth Martinez RN 01/03/23 00:12: IV's in L.arm removed post blood transfusion. See TAR for blood transfusion end time. Original Note: Admission Note: Pt arrived to ICU 12 @2037 from ER. Continuos Cardiac monitoring initiated. Swelling noted in L. arm. Dr. Lin ordered to remove IV present in L. Arm post blood transfusion. R. arm IV bad. Difficulty obtaining IV access. Dr. Lin aware. Pt is A&Ox1. Fall risk precautions in place. Swelling noted in R. Leg, SCDs not applied @ this time, Dr. Lin @bedside to access.
[2023-01-02 22:22] LABS: Add Urine Microscopic? YES; Bilirubin Urine Neg (Negative); Blood Urine Neg (Negative); Glucose Urine UA Norm (Normal); Ketones Urine Negative (Negative); Leukocyte Esterase Urine 1+ (Negative); Nitrate Urine Negative (Negative); Protein Urine Neg (Negative); Urine Appearance Clear (CLEAR); Urine Color Yellow (Yellow); Urobilinogen Urine Neg (Negative); pH Urine 6 (5-7)
[2023-01-02 22:23] LABS: Add Urine Culture? No; Bacteria Urine 2+ /hpf; RBC Urine 0-4 /hpf (0-2); Squamous Epithelial Cell Urine 0-4 /hpf (0-5); WBC Urine 0-4 /hpf (0-5)
[2023-01-02 22:28] LABS: Glucose Point of Care 169 mg/dL (70-110)
[2023-01-02] MEDS: insulin lispro 100 unit/1 mL SUBCUT (22:30)
[2023-01-02] MEDS: sodium chloride 0.9% 100 mL Bag 50 ML IV (22:55)
[2023-01-02] MEDS: sodium chloride 0.9% 1,000 ML 100 ML IV (23:10)
[2023-01-02] MEDS: magnesium sulfate premix 2 GM/50 ML PIGGYBACK IV (23:12)
--- NOTE | 2023-01-02 23:17 | ECG_ITS ---
[facility] Test Date: 2023-01-02 Pat Name: Niya Gupta Department: Room: ICU12 Gender: Female Adoption Agent: FRANKI: 1935 Requested By: Pillo Hall Order Number: [id number] Donna MD: Xavier Christopher M.D. Measurements Intervals [place] Rate: 63 P: 0 SD: 160 QRS: 68 QRSD: 124 T: -41 QT: 420 QTc: 432 Interpretive Statements SINUS RHYTHM RIGHT BUNDLE BRANCH BLOCK [120+ ms QRS DURATION, UPRIGHT V1, 40+ ms S IN I/aVL/V4/V5/V6] MODERATE T-WAVE ABNORMALITY, CONSIDER LATERAL ISCHEMIA [-0.1+ mV T-WAVE IN I/aVL/V5/V6] Compared to ECG 01/02/2023 19:47:08 Right bundle-branch block now present Incomplete right bundle-branch block no longer present T-wave abnormality still present Possible ischemia still present Electronically Signed On 01-04-2023 20:11:19 CDT by Xavier Christopher M.D. [email or web address]
--- NOTE | 2023-01-02 23:23 | PC.NURSE ---
Medications given late d/t difficulty placing IV in R. arm. Dr. Lin aware. See MAR for administration times. 18G ultrasound IV placed in R. Upper arm. 5 total IV attempts.
[2023-01-03] VITALS (41 sets, daily range): BP systolic 105–163; BP diastolic 48–93; PULSE 60–162; RESP 14–29; TEMP 36.8–36.9; O2SAT 90–96
--- NOTE | 2023-01-03 00:15 | USCV_ITS ---
Niya Gupta Age: 87 Gender: F : 1935 Exam Date: 01/03/2023 00:56 Ordering Phys: Priti Long MD Technologist: CT Exam Location: [facility] [place]_ Indication: PROCEDURES: Venous duplex imaging was performed in only the right lower extremity. On the right side, the common femoral, superficial femoral, profunda femoral, popliteal, posterior tibial, greater saphenous veins and the peroneal trunk were identified and interrogated in the standard fashion. These veins were found to be easily compressible with spontaneous blood flow. No evidence of insufficiency or thrombus noted. FINDINGS: normal us CONCLUSIONS No evidence of right lower extremity DVT. Usman Thomas MD (Electronically Signed) Final Date: 03 January 2023 09:08 S
[2023-01-03 00:48] LABS: Troponin 5 6HR 33.97 ng/L (0-10)
[2023-01-03 00:49] LABS: Troponin 5 6HR Delta -1.03 ng/L (0-12)
[2023-01-03 00:58] LABS: Iron 57 ug/dL (37-145); Percent Saturation 18.5 % (20-50); Total Iron Binding Capacity 307 mcg/dl; Unsaturated Iron Binding 250 ug/dL (112-347)
[2023-01-03 05:01] LABS: Basophils # 0.1 10^3/uL (0.0-0.1); Basophils % 0.7 %; Eosinophils % 0.4 %; Hematocrit 26.7 % (37.0-47.0); Hemoglobin 8.6 g/dL (11.5-15.3); Lymphocytes # 1.6 10^3/uL (0.8-4.8); Mean Corpuscular HGB Conc 32.2 g/dL (30.0-36.0); Mean Corpuscular Hemoglobin 31.3 pg (28.0-34.0); Mean Corpuscular Volume 97.1 fl (81-99); Mean Platelet Volume 9.9 fL (7.4-10.4); Monocytes # 0.6 10^3/uL (0.2-0.9); Monocytes % 8.7 %; Neutrophils # 4.66 10^3/uL (1.8-7.7); Neutrophils % 66.6 %; Nucleated Red Blood Cells % 0.4 %; Platelet Count 171 10^3/cmm (130-400); Red Blood Count 2.75 10^6/uL (4.1-5.3); Red Cell Distribution Width 14.4 % (12.1-15.1)
[2023-01-03 05:17] LABS: Partial Thromboplastin Time 36.4 SECONDS (23.9-36.7)
[2023-01-03 05:35] LABS: Alanine Aminotransferase 87 U/L (0-33); Albumin Level 3.5 g/dL (3.5-5.2); Alkaline Phosphatase 46 U/L (35-105); Anion Gap 12.6 (5-19); Aspartate Amino Transferase 115 U/L (0-32); Blood Urea Nitrogen 38 mg/dL (8-23); Calcium 8.8 mg/dL (8.5-10.5); Carbon Dioxide 22 mmol/L (22-29); Chloride 109 mmol/L (98-107); Creatine Phosphokinase 51 U/L (26-192); Glucose 83 mg/dL (65-115); Magnesium 1.7 mg/dL (1.7-2.3); Osmolality Calculated 296 mOsm/kg (285-295); Phosphorus 3.2 mg/dL (2.5-4.5); Potassium 4.6 mmol/L (3.5-5.1); Sodium 139 mmol/L (136-145); Total Bilirubin 0.3 mg/dL (0.15-1.2); Total Protein 5.5 g/dL (6.6-8.7); Uric Acid 7.2 mg/dL (2.4-5.7)
[2023-01-03 06:09] LABS: Folate Level > 20.0 ng/mL (4.8-37.3)
[2023-01-03 06:20] LABS: Vitamin B12 283 pg/mL (232-1245)
[2023-01-03 09:39] LABS: Glucose Point of Care 93 mg/dL (70-110)
[2023-01-03] MEDS: pantoprazole DR 40 mg Tablet PO ×2 (09:47→17:34)
[2023-01-03] MEDS: amlodipine 5 mg Tablet PO (09:47)
[2023-01-03] MEDS: docusate sodium 100 mg Capsule PO ×2 (09:47→17:34)
[2023-01-03] MEDS: sodium chloride 0.9% 1,000 ML 100 ML IV ×2 (09:50→21:44)
[2023-01-03] MEDS: insulin lispro 100 unit/1 mL SUBCUT ×3 (13:00→21:45)
[2023-01-03 13:02] LABS: Glucose Point of Care 248 mg/dL (70-110)
--- NOTE | 2023-01-03 16:18 | P.PN_ITS ---
Subjective Subjective: Heart rate currently well maintained. Sinus rhythm ranging between 69 to 70 bpm. Hyperkalemia is now resolved. Patient denies any current symptoms. JENNY resolving with improved creatinine. Medications: Reviewed: Yes Vitals/I&O/Wt Last Vital Signs Temp 98.2 F 01/03/23 09:00 Pulse 68 01/03/23 16:00 Resp 20 H 01/03/23 16:00 BP 121/68 01/03/23 16:00 Pulse Ox 95 01/03/23 16:00 O2 Del Method Nasal Cannula 01/03/23 12:00 O2 Flow Rate 2 01/03/23 12:00 01/03/23 01/03/23 01/03/23 06:59 14:59 22:59 Intake Total 400 / 900 1360 / 1360 Output Total 1450 / 1450 Balance -1050 / -550 1360 / 1360 Weight last 48 hrs Weight 74.979 kg Weight 76.476 kg Weight 95.254 kg Physical Exam Narrative: General: No acute distress, AO x3 HEENT: PERRLA, pupils bilaterally equal and reactive, pallors not present Chest: Normal vesicular breath sounds, no added sounds, equal good air entry bilaterally CVS: S1-S2 regular, no murmurs, no tachycardia, no gallops, no rubs Abdomen: Soft, nontender, no organomegaly, bowel sounds present Neuro: No focal deficits, no facial deformity, AO x3, power 5/5 in all limbs Urinary Catheter Management: Nath: Cath Placed During This Visit: yes Reason for Continuing Indwelling Catheter: Accurate Measurement of Urinary Output in Critically Ill Patients Urinary Catheter Date of Insertion: 01/02/23 Urinary Catheter Time of Insertion: 21:00 Data 01/03/23 03:48 01/03/23 03:48 A&P Assessment and plan (1) Altered mental status: Confusion/disorientation along with generalized weakness occurring somewhat acutely Most likely secondary to bradycardia in the setting of metabolic abnormalities including hyperkalemia, acute kidney injury and hypomagnesemia. Mentation is improved today, family is at bedside. (2) Bradycardia: Currently in sinus rhythm after correction of hyperkalemia. Continue telemetry monitoring. (3) Acute hyperkalemia: Now resolved Continue to hold Aldactone and losartan (4) Anemia: Acute on chronic, hemoglobin currently stable (5) Acute kidney injury: Improving Continue to hold ARB's and spironolactone (6) Edema of right lower extremity: Present on admission, noticeably more edematous than left lower extremity. No evidence of DVT in bilateral lower extremities (7) Hypertension: Currently well controlled with holding her medications (8) Diabetes mellitus, type II: Insulin sliding scale while in the hospital (9) Hyperlipidemia: Chronically on statin therapy (10) Macular degeneration: Involving both eyes, not able to see well enough to read or provide description of stool or urine Plan VTE prophylaxis: SCDs GI Prophylaxis: Twice daily PPI Telemetry: Currently warranted secondary to bradycardia at presentation Line(s): Has 2 peripheral IVs currently in the left arm which will need to be changed over to right arm or other locations given history of left mastectomy Disposition plan: Currently anticipate discharge home with . Will need close outpatient follow-up with primary care provider. Depending on clinical course and determine needs may benefit from short-term home health for blood pressure and heart rate checks, follow-up laboratory studies along with medication management plus or minus therapy. Code Status: To be allowed natural Discontinue Nath, transfer out of ICU to cardiac stepdown Attestations Medical Necessity Statement*: Continued monitoring of electrolytes and acute kidney injury, junctional rhythm appears to have resolved currently, will monitor, if improving over the next 24 hours anticipate discharge home. Coding Level of Care Code Acute Code for [facility] Fwd Diagnoses Altered mental status R41.82 Bradycardia R00.1 Acute hyperkalemia E87.5 Anemia D64.9 Acute kidney injury N17.9 Edema of right lower extremity R60.0 Hypertension I10 Diabetes mellitus, type II E11.9 Hyperlipidemia E78.5 Macular degeneration H35.30
[2023-01-03 16:52] LABS: Glucose Point of Care 295 mg/dL (70-110)
[2023-01-03 22:03] LABS: Glucose Point of Care 162 mg/dL (70-110)
[2023-01-04] VITALS (10 sets, daily range): BP systolic 133–157; BP diastolic 51–83; PULSE 72–94; RESP 15–21; O2SAT 91–96; BMI 26.6
[2023-01-04 05:59] LABS: Alanine Aminotransferase 103 U/L (0-33); Albumin Level 3.4 g/dL (3.5-5.2); Alkaline Phosphatase 52 U/L (35-105); Anion Gap 13.4 (5-19); Aspartate Amino Transferase 77 U/L (0-32); Blood Urea Nitrogen 17 mg/dL (8-23); Calcium 8.8 mg/dL (8.5-10.5); Carbon Dioxide 22 mmol/L (22-29); Chloride 108 mmol/L (98-107); Globulin 2.3 g/dL (1.3-4.6); Glucose 176 mg/dL (65-115); Osmolality Calculated 294 mOsm/kg (285-295); Potassium 4.4 mmol/L (3.5-5.1); Sodium 139 mmol/L (136-145); Total Bilirubin 0.5 mg/dL (0.15-1.2); Total Protein 5.7 g/dL (6.6-8.7)
[2023-01-04 07:32] LABS: Glucose Point of Care 163 mg/dL (70-110)
[2023-01-04] MEDS: insulin lispro 100 unit/1 mL SUBCUT ×2 (08:16→11:33)
[2023-01-04] MEDS: pantoprazole DR 40 mg Tablet PO (08:16)
[2023-01-04] MEDS: docusate sodium 100 mg Capsule PO (08:16)
[2023-01-04] MEDS: amlodipine 5 mg Tablet PO (08:16)
[2023-01-04 11:28] LABS: Glucose Point of Care 261 mg/dL (70-110)
--- NOTE | 2023-01-04 12:54 | ECG_ITS ---
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 Measurements Intervals [place] Rate: 87 P: 97 MN: 167 QRS: 90 QRSD: 110 T: -53 QT: 386 QTc: 466 Interpretive Statements SINUS RHYTHM INCOMPLETE RIGHT BUNDLE BRANCH BLOCK [90+ ms QRS DURATION, TERMINAL R IN V1/V2, 40+ ms S IN I/aVL/V4/V5/V6] ST DEVIATION AND MODERATE T-WAVE ABNORMALITY, CONSIDER ANTEROLATERAL ISCHEMIA [-0.1+ mV T-WAVE IN V3-V6] ST DEVIATION AND MODERATE T-WAVE ABNORMALITY, CONSIDER INFERIOR ISCHEMIA [-0.1+ mV T-WAVE IN II/aVF] Compared to ECG 01/02/2023 23:17:44 Incomplete right bundle-branch block now present Right bundle-branch block no longer present T-wave abnormality still present Possible ischemia still present Electronically Signed On 01-04-2023 20:45:03 CDT by Xavier Christopher M.D. [email or web address] Corporation[facility].[employer]/store/Ov/[id number]
--- NOTE | 2023-01-04 13:42 | PM.DCS ---
Discharge Providers Date of Admission: 01/02/23 19:56 Date of Discharge: January 04, 2023 Attending Provider at Admission: Priti Long MD Attending Provider at Discharge: Kiersten Meza MD Primary Care Provider: Lb Akers MD Diagnoses at Discharge Discharge Diagnosis (1) Altered mental status: Status: Acute (2) Bradycardia: Status: Acute (3) Acute hyperkalemia: Status: Acute (4) Anemia: Status: Acute (5) Acute kidney injury: Status: Acute (6) Edema of right lower extremity: Status: Acute (7) Hypertension: Status: Chronic (8) Diabetes mellitus, type II: Status: Chronic (9) Hyperlipidemia: Status: Chronic (10) Macular degeneration: Status: Chronic Reason for Visit Reason for Visit: weakness Hospital Course Hospital Course Niya Gupta is a 87 year old female brought in by EMS due to complaints of weakness and confusion.?When EMS arrived her heart rate was noted to be in the 30s.? Junctional rhythm.? She is on chronic beta-blockade in the form of metoprolol.? No clear history of previous arrhythmias or known coronary artery disease from available historical information.?She is on metoprolol for HTN which she had taken. ?On arrival to the emergency room and blood pressure 116/36 with pulse ox of 92% on room air.? Work-up ensued that demonstrated a potassium of 7.1 and creatinine of 1.8. ?Her hemoglobin was also noted to be low at 7.4. Stool per emergency room provider was brown and weakly Hemoccult positive. She received treatment with IVF, insulin and D50 plus calcium gluconate and bicarb.Baseline troponin was 35 with a similar 2-hour delta.? Gradually with treatment administered heart rate improved into the 60s-80s, Rhythm converted to sinus rhythm with incomplete RBBB. Her home medications were adjusted- discontinued aldactone and HCTZ and losartan due to JENNY. Metoprolol has been held for now. Likely that bradycardia was more likely related to hyperkalemia, however would resume metoprolol only after trending HR trend over the next week. An event monitor has been ordered at discharge. with regards to her anemia, She had low TSI, low normal B12, supplementation was added at discharge. She has had a previous colonoscopy some years ago that was unrevealing. with comorbid acute and chronic issues along with advanced age, medical management may be the most desirable approach per discussion with . Her Jenny improved with holding medications, cr improved to 0.9 at discharge. Physical Exam Narrative: General: No acute distress, AO x3 HEENT: PERRLA, pupils bilaterally equal and reactive, pallors not present Chest: Normal vesicular breath sounds, no added sounds, equal good air entry bilaterally CVS: S1-S2 regular, no murmurs, no tachycardia, no gallops, no rubs Abdomen: Soft, nontender, no organomegaly, bowel sounds present Neuro: No focal deficits, no facial deformity, AO x3, power 5/5 in all limbs Urinary Catheter Management: Nath: Cath Placed During This Visit: yes, but has since been removed by the nurse Reason for Continuing Indwelling Catheter: Accurate Measurement of Urinary Output in Critically Ill Patients Urinary Catheter Date of Insertion: 01/02/23 Urinary Catheter Time of Insertion: 21:00 Date Urinary Catheter Removed: 01/03/23 Time Urinary Catheter Discontinued: 17:42 Discharge Data Studies Completed and Pending Completed Studies During Hospitalization Category Date Time Status CT head wo con* [id number] Stat Cat Scan 01/02/23 17:57 Completed XR chest 1V portable [id number] Stat Exams 01/02/23 17:57 Completed US venous duplex lower extremity RT [CV venous duplex Ultrasound 01/03/23 00:[place] [id number]] Routine Radiology Impressions Chest X-Ray 01/02/23 17:57 IMPRESSION: 1. Cardiomediastinal silhouette is stable with a large hiatal hernia. 2. Retrocardiac area not well seen, so difficult to exclude left basilar atelectasis or consolidation. Head CT 01/02/23 17:57 IMPRESSION: No acute intracranial abnormality. Laboratory Results WBC 7.0 10^3/uL (4.0-10.0) 01/03/23 03:48 RBC 2.75 10^6/uL (4.1-5.3) L 01/03/23 03:48 Hgb 8.6 g/dL (11.5-15.3) L 01/03/23 03:48 Hct 26.7 % (37.0-47.0) L 01/03/23 03:48 MCV 97.1 fl (81-99) D 01/03/23 03:48 MCH 31.3 pg (28.0-34.0) 01/03/23 03:48 MCHC 32.2 g/dL (30.0-36.0) D 01/03/23 03:48 RDW 14.4 % (12.1-15.1) 01/03/23 03:48 Plt Count 171 10^3/cmm (130-400) 01/03/23 03:48 MPV 9.9 fL (7.4-10.4) 01/03/23 03:48 Neut % (Auto) 66.6 % 01/03/23 03:48 Lymph % (Auto) 23.0 % 01/03/23 03:48 Ocean % (Auto) 8.7 % 01/03/23 03:48 Eos % (Auto) 0.4 % 01/03/23 03:48 Baso % (Auto) 0.7 % 01/03/23 03:48 Neut # (Auto) 4.66 10^3/uL (1.8-7.7) 01/03/23 03:48 Lymph # (Auto) 1.6 10^3/uL (0.8-4.8) 01/03/23 03:48 Ocean # (Auto) 0.6 10^3/uL (0.2-0.9) 01/03/23 03:48 Eos # (Auto) 0.0 10^3/uL (0.0-0.8) 01/03/23 03:48 Baso # (Auto) 0.1 10^3/uL (0.0-0.1) 01/03/23 03:48 Nucleated RBC % (auto) 0.4 % 01/03/23 03:48 Nucleated RBCs # 0.0 /100WBC 01/03/23 03:48 PT 15.30 SECONDS (12.1-14.9) H 01/02/23 18:28 INR 1.17 (0.8-1.2) 01/02/23 18:28 APTT 36.4 SECONDS (23.9-36.7) 01/03/23 03:48 Specimen Type Arterial 01/02/23 19:48 Sample Site Brachial, left 01/02/23 19:48 ABG pH 7.39 (7.35-7.45) 01/02/23 19:48 ABG pCO2 27.8 mmHg (35-45) L 01/02/23 19:48 ABG pO2 67.9 mmHg (80.0-100.0) L 01/02/23 19:48 ABG HCO3 16.7 mmol/L (22-26) L 01/02/23 19:48 ABG Base Excess -7.5 mmol/L (-2.0-2.0) L 01/02/23 19:48 Jayy Test N/a 01/02/23 19:48 Hematocrit 20.8 % (37-47) L 01/02/23 19:48 O2 Delivery Device Nc 01/02/23 19:48 O2 Liters/Min 2.0 % 01/02/23 19:48 FiO2 28.0 % 01/02/23 19:48 Elevator Repairer ID [email or web address] 01/02/23 19:48 Sodium 139 mmol/L (136-145) 01/04/23 04:57 Potassium 4.4 mmol/L (3.5-5.1) 01/04/23 04:57 Chloride 108 mmol/L (98-107) H 01/04/23 04:57 Carbon Dioxide 22 mmol/L (22-29) 01/04/23 04:57 Anion Gap 13.4 (5-19) 01/04/23 04:57 BUN 17 mg/dL (8-23) 01/04/23 04:57 Creatinine 0.9 mg/dL (0.5-0.9) 01/04/23 04:57 GFR Calculation Not Reportable 01/04/23 04:57 Glucose 176 mg/dL (65-115) H 01/04/23 04:57 POC Glucose 261 mg/dL (70-110) H 01/04/23 11:23 Calculated Osmolality 294 mOsm/kg (285-295) 01/04/23 04:57 Uric Acid 7.2 mg/dL (2.4-5.7) H 01/03/23 03:48 Calcium 8.8 mg/dL (8.5-10.5) 01/04/23 04:57 Phosphorus 3.2 mg/dL (2.5-4.5) 01/03/23 03:48 Magnesium 1.7 mg/dL (1.7-2.3) 01/03/23 03:48 Iron 57 ug/dL (37-145) 01/02/23 19:28 TIBC 307 mcg/dl 01/02/23 19:28 % Saturation 18.5 % (20-50) L 01/02/23 19:28 Unsat Iron Binding 250 ug/dL (112-347) 01/02/23 19:28 Total Bilirubin 0.5 mg/dL (0.15-1.2) 01/04/23 04:57 AST 77 U/L (0-32) H 01/04/23 04:57 ALT 103 U/L (0-33) H 01/04/23 04:57 Alkaline Phosphatase 52 U/L (35-105) 01/04/23 04:57 Creatine Kinase 51 U/L (26-192) 01/03/23 03:48 Troponin T Baseline 35 ng/L (0-10) H 01/02/23 18:28 Troponin T 120 Minute 34.10 ng/L (0-10) H 01/02/23 20:55 Delta Troponin T -0.90 ABS# (0-10) L 01/02/23 20:55 Troponin T Hi Sens 6Hr 33.97 ng/L (0-10) H 01/03/23 00:07 Troponin T Hi Sens 6Hr Delta -1.03 ng/L (0-12) L 01/03/23 00:07 Total Protein 5.7 g/dL (6.6-8.7) L 01/04/23 04:57 Albumin 3.4 g/dL (3.5-5.2) L 01/04/23 04:57 Globulin 2.3 g/dL (1.3-4.6) 01/04/23 04:57 Vitamin B12 283 pg/mL (232-1245) 01/03/23 03:48 Folate > 20.0 ng/mL (4.8-37.3) 01/03/23 03:48 TSH 2.80 uIU/mL (0.27-4.20) 01/03/23 03:48 Urine Color Yellow (Yellow) 01/02/23 22:05 Urine Appearance Clear (CLEAR) 01/02/23 22:05 Urine pH 6 (5-7) 01/02/23 22:05 Ur Specific [place] 1.010 (1.005-1.030) 01/02/23 22:05 Urine Protein Neg (Negative) 01/02/23 22:05 Urine Glucose (UA) Norm (Normal) 01/02/23 22:05 Urine Ketones Negative (Negative) 01/02/23 22:05 Urine Blood Neg (Negative) 01/02/23 22:05 Urine Nitrate Negative (Negative) 01/02/23 22:05 Urine Bilirubin Neg (Negative) 01/02/23 22:05 Urine Urobilinogen Neg mg/dL (Negative) 01/02/23 22:05 Ur Leukocyte Esterase 1+ (Negative) H 01/02/23 22:05 Urine RBC 0-4 /hpf (0-2) H 01/02/23 22:05 Urine WBC 0-4 /hpf (0-5) H 01/02/23 22:05 Ur Squamous Epith Cells 0-4 /hpf (0-5) H 01/02/23 22:05 Amorphous Sediment Not Reportable 01/02/23 22:05 Urine Bacteria 2+ /hpf (NONE) H 01/02/23 22:05 Blood Type A Positive 01/02/23 19:24 Rho(D) Type Positive 01/02/23 19:24 Antibody Screen Negative 01/02/23 19:24 Crossmatch See Detail 01/02/23 19:24 Vitals Last Vital Signs Temp 98.3 F 01/03/23 20:00 Pulse 85 01/04/23 12:00 Resp 21 H 01/04/23 12:00 BP 144/83 01/04/23 12:00 Pulse Ox 96 01/04/23 12:00 O2 Del Method Nasal Cannula 01/04/23 08:15 O2 Flow Rate 2 01/04/23 08:15 Discharge Plan Discharge Patient Disposition: Home Condition: Stable Prescriptions: New pantoprazole 40 mg Tablet,Delayed Release (Dr/Ec) 40 mg PO BID 30 Days Qty: 60 0RF ferrous sulfate 324 mg (65 mg iron) tablet,delayed release (DR/EC) 324 mg PO DAILY 30 Days Qty: 30 0RF vitamin B complex [B Complex-Vitamin B12] Tablet 1 tab PO DAILY Qty: 30 0RF Continued metformin 500 mg tablet 500 mg PO BID gabapentin 300 mg capsule See Rx Instructions .ROUTE .COMPLEX Qty: 270 3RF Dose Instruction: TAKE 1 CAPSULE BY MOUTH IN THE MORNING AND 2 IN THE EVENING Rx Instructions: TAKE 1 CAPSULE BY MOUTH IN THE MORNING AND 2 IN THE EVENING lovastatin 40 mg tablet 40 mg PO DAILY amlodipine 5 mg tablet 5 mg PO BID glimepiride 1 mg tablet 1 mg PO BID Held clopidogrel 75 mg tablet 75 mg PO DAILY Hold Instructions: Resume on 01/11/23. hold until PCP follow up Discontinued spironolactone 25 mg tablet 25 mg PO BID losartan 50 mg tablet 50 mg PO BID metoprolol tartrate 100 mg tablet 100 mg PO BID hydrochlorothiazide 25 mg tablet 25 mg PO DAILY Referrals: Lb Akers MD [Primary Care Provider] - Patient Instructions: Opioid Safety Discharge Attestations Time Spent in Discharge Care*: greater than 30 min Quality Metrics Clinical Quality Measures [ No reported AMI, CVA or VTE this stay] Coding Level of Care Code Acute Code for [facility] Fwd Diagnoses Altered mental status R41.82 Bradycardia R00.1 Acute hyperkalemia E87.5 Anemia D64.9 Acute kidney injury N17.9 Edema of right lower extremity R60.0 Hypertension I10 Diabetes mellitus, type II E11.9 Hyperlipidemia E78.5 Macular degeneration H35.30
--- NOTE | 2023-01-04 16:30 | PC.NURSE ---
All D/C instructions educated to patient, transported home by Daughter in law
== END 2023-01-04 16:31 | disposition home or self-care (01) | DRG 641 ==
LOC: ER 19:52 → ICU 19:58
PROVIDERS: Admitting Provider Hospitalist; Emergency Provider Emergency Medicine; PCP Family Medicine; Visit Provider Student in an Organized Health Care Education/Training Program
DX: E87.5 Hyperkalemia (principal); N17.9 Acute kidney failure, unspecified; I10 Essential (primary) hypertension; D64.9 Anemia, unspecified; Z79.84 Long term (current) use of oral hypoglycemic drugs; E78.5 Hyperlipidemia, unspecified; H35.30 Unspecified macular degeneration; Z85.3 Personal history of malignant neoplasm of breast; Z86.73 Personal history of transient ischemic attack (TIA), and cerebral infarction without residual deficits; E11.51 Type 2 diabetes mellitus with diabetic peripheral angiopathy without gangrene; M17.0 Bilateral primary osteoarthritis of knee; Z90.12 Acquired absence of left breast and nipple; E83.42 Hypomagnesemia; R00.1 Bradycardia, unspecified
CPT/HCPCS: 36415; 36416; 36430; 36600; 51702; 70450; 71045; 80053; 81001; 82550; 82607; 82746; 82803; 82962; 83540; 83550; 83735; 84100; 84132; 84443; 84484; 84550; 85025; 85610; 85730; 86850; 86900; 86920; 93005; 93971; 94760; 96361; 96372; 96374; 96375; 96376; 97110; 97161; 97530; 99285; J0461; J0612; J1815; J3475; J7030; J7040; P9016

== ENCOUNTER → 2023-01-17 08:38 | Outpatient (BNVA) | payer MEDICARE, SELFPAY | PROVIDERS: PCP Family Medicine; Visit Provider Family Medicine | DX: D64.9 Anemia, unspecified (principal); I10 Essential (primary) hypertension | CPT/HCPCS: 80053; 85025 ==

== ENCOUNTER → 2023-03-29 10:10 | Outpatient (BNVA) | payer MEDICARE, OTHER, SELFPAY | PROVIDERS: PCP Family Medicine; Visit Provider Family Medicine | DX: D64.9 Anemia, unspecified (principal); E11.9 Type 2 diabetes mellitus without complications; I10 Essential (primary) hypertension | CPT/HCPCS: 80053; 83036; 85025 ==

== ENCOUNTER → 2023-08-10 09:43 | Outpatient (BNVA) | payer MEDICARE, OTHER, SELFPAY | PROVIDERS: PCP Family Medicine; Visit Provider Family Medicine | DX: E11.9 Type 2 diabetes mellitus without complications (principal); E78.5 Hyperlipidemia, unspecified; I10 Essential (primary) hypertension | CPT/HCPCS: 80053; 80061; 83036; 85025 ==

== ENCOUNTER 2023-10-26 15:55 | Outpatient (CLI) | payer MEDICARE, OTHER, SELFPAY ==
--- NOTE | 2023-10-26 16:13 | XRR_ITS ---
PROCEDURE INFORMATION: Exam: XR Right Shoulder Exam date and time: 10/26/2023 4:34 PM Age: 88 years old Clinical indication: Injury or trauma; Blunt trauma (contusions or hematomas); Right; Injury date: 2 months ago; Injury details: Fall 2 mo ago, anterior pain in RT shoulder that radiates to fingers; Patient HX: HX of breast cancer; Additional info: Shoulder pain TECHNIQUE: Imaging protocol: Radiologic exam of the right shoulder. Views: 2 or more views. COMPARISON: CR (CHEST, ) 01/02/2023 6:04 PM FINDINGS: Bones/joints: There is mild subacromial spurring. No acute fracture or dislocation is noted. No focal lytic or sclerotic lesions are seen. Heart/Mediastinum: A large hiatal hernia is noted Soft tissues: Normal. XR/XR shoulder RT min 2V* [id number] IMPRESSION: 1. No acute abnormality. 2. Degenerative changes of the acromioclavicular joint with subacromial spurring. 3. Large hiatal hernia
== END 2023-10-26 15:56 | disposition home or self-care (01) ==
LOC: RAD 16:00
PROVIDERS: PCP Family Medicine; Visit Provider Family Medicine
DX: M75.101 Unspecified rotator cuff tear or rupture of right shoulder, not specified as traumatic (principal); M25.712 Osteophyte, left shoulder; K44.9 Diaphragmatic hernia without obstruction or gangrene
CPT/HCPCS: 73030

== ENCOUNTER 2024-03-14 20:29 | Inpatient (IN) | payer MEDICARE, SELFPAY ==
[2024-03-14 20:30] VITALS: BP 164/84; PULSE 82; RESP 18; TEMP 36.6; O2SAT 94; BMI 24.3
--- NOTE | 2024-03-14 21:04 | CTR_ITS ---
PROCEDURE INFORMATION: Exam: CT Head Without Contrast Exam date and time: 03/14/2024 9:10 PM Age: 88 years old Clinical indication: Injury or trauma; Fall; Additional info: Fall, head injury TECHNIQUE: Imaging protocol: Computed tomography of the head without contrast. Radiation optimization: All CT scans at this facility use at least one of these dose optimization techniques: automated exposure control; mA and/or kV adjustment per patient size (includes targeted exams where dose is matched to clinical indication); or iterative reconstruction. COMPARISON: CT head wo con* [id number] 01/02/2023 6:10 PM RADIATION DOSE METRICS: Total DLP (mGy-cm): 1134.98 FINDINGS: Brain: There is generalized atrophy. mild periventricular white matter low densities without mass effect compatible with chronic small vessel ischemic changes. No mass effect or midline shift. No hemorrhage. 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 Cerebral ventricles: Prominence of the ventricles and cortical sulci. Paranasal sinuses: Visualized sinuses are unremarkable. No fluid levels. Mastoid air cells: Visualized mastoid air cells are well aerated. Bones: Unremarkable. No acute fracture. Soft tissues: Unremarkable. Vasculature: There are vascular atherosclerotic calcifications carotid siphons. Notes: If there is further clinical concern for intracranial pathology, MRI of the brain may be performed for further assessment. CT/CT head wo con* [id number] IMPRESSION: Genralized atrophy, No acute intracranial abnormality.
--- NOTE | 2024-03-14 21:04 | CTR_ITS ---
PROCEDURE INFORMATION: Exam: CT Chest Without Contrast; Diagnostic Exam date and time: 03/14/2024 9:13 PM Age: 88 years old Clinical indication: Injury or trauma; Fall; Blunt; Luq; Additional info: Fall, left sided pain TECHNIQUE: Imaging protocol: Diagnostic computed tomography of the chest without contrast. Radiation optimization: All CT scans at this facility use at least one of these dose optimization techniques: automated exposure control; mA and/or kV adjustment per patient size (includes targeted exams where dose is matched to clinical indication); or iterative reconstruction. COMPARISON: CR (CHEST, ) 01/02/2023 6:04 PM RADIATION DOSE METRICS: Total DLP (mGy-cm): 0 FINDINGS: Lungs: Bibasilar subsegmental atelectasis, left greater than right. Pleural spaces: Unremarkable. No pneumothorax. No pleural effusion. Heart: Unremarkable. No cardiomegaly. No pericardial effusion. Coronary arteries: Coronary artery calcifications. Lymph nodes: Unremarkable. No enlarged lymph nodes. Vasculature: Ectasia and vascular calcification in the aorta. No aortic aneurysm. Stomach: Large anterior paraesophageal hernia measuring approximately 13.8 cm transversely. This contains the entire stomach which is inverted although nonobstructed. Bones/joints: Unremarkable. No acute fracture. Soft tissues: Unremarkable. PROCEDURE INFORMATION: Exam: CT Abdomen And Pelvis Without Contrast Exam date and time: 03/14/2024 9:13 PM Age: 88 years old Clinical indication: Injury or trauma; Fall; Blunt; Luq; Additional info: Fall, left sided pain TECHNIQUE: Imaging protocol: Computed tomography of the abdomen and pelvis without contrast. Radiation optimization: All CT scans at this facility use at least one of these dose optimization techniques: automated exposure control; mA and/or kV adjustment per patient size (includes targeted exams where dose is matched to clinical indication); or iterative reconstruction. COMPARISON: CR (CHEST, ) 01/02/2023 6:04 PM RADIATION DOSE METRICS: Total DLP (mGy-cm): 825.88 FINDINGS: Liver: Calcified granulomas in the liver and spleen Gallbladder and biliary ducts: Multiple gallstones are present. No pericholecystic inflammatory changes to suggest cholecystitis. Pancreas: Normal. No ductal dilation. Spleen: Punctate calcified granulomas present. Adrenal glands: Normal. No mass. Kidneys and ureters: 1-2 mm nonobstructing stone in the right kidney. No hydronephrosis bilaterally . No stones on the left Stomach and bowel: Colonic diverticulosis is present without diverticulitis. Appendix: No evidence of appendicitis. Intraperitoneal space: Unremarkable. No free air. No significant fluid collection. Vasculature: Vascular calcification in the aorta and iliac vessels. No aneurysm. Lymph nodes: Unremarkable. No enlarged lymph nodes. Urinary bladder: Unremarkable as visualized. Reproductive: Unremarkable as visualized. Bones/joints: Unremarkable. No acute fracture. Soft tissues: Unremarkable. CT/[place] [id number] IMPRESSION: 1. Large anterior paraesophageal hernia measuring approximately 13.8 cm transversely. This contains the entire stomach which is inverted although nonobstructed. Appearance is similar to chest radiograph from 2022. 2. Bibasilar subsegmental atelectasis, left greater than right. IMPRESSION: 1. Cholelithiasis without evidence of acute cholecystitis. 2. Diverticulosis without diverticulitis
--- NOTE | 2024-03-14 21:25 | W.ED.FALL ---
HPI - Fall General: Chief Complaint: Fall Stated Complaint: fall pain in abd right side Time Seen by Provider: 03/14/24 21:00 History of Present Illness: 88-year-old female with a history of obesity, diabetes, hypertension, carotid and coronary artery disease on Plavix who presents to the emergency room after having a fall. Apparently she stepped in a hole and fell. She had had another fall few days ago tried to get up from a chair. She is very slow getting around patient's family says this is her baseline. Initially she had been complaining some right abdominal pain. Now left. Also possibly some rib pain. Initially she did not think she hit her head but she has an abrasion on the top of her head so they are worried she may have hit her head and she is on Plavix. She has no apparent hip pain or knee pain. No ankle pain. No arm pain. No altered mental status. No loss consciousness. No focal motor deficits. Related Data Previous Rx's Medication Instructions Recorded vitamin B complex (B 1 tab PO DAILY #30 tabs 01/04/23 Complex-Vitamin B12 tablet) clopidogrel 75 mg tablet 75 mg PO DAILY #30 tabs 12/27/23 gabapentin 300 mg capsule See Rx Instructions .Route 01/05/24 .COMPLEX #270 caps glimepiride 1 mg tablet See Rx Instructions .Route 01/10/24 .COMPLEX #180 tabs amlodipine 5 mg tablet 5 mg PO BID #60 tabs 01/18/24 ferrous sulfate 324 mg (65 mg 324 mg PO DAILY 30 days #30 tabs 01/18/24 iron) tablet,delayed release lovastatin 40 mg tablet See Rx Instructions .Route 01/18/24 .COMPLEX #90 tabs metformin 500 mg tablet See Rx Instructions .Route 03/05/24 .COMPLEX #180 tabs metoprolol tartrate 50 mg tablet 50 mg PO BID #60 tabs 03/14/24 Allergies Allergy/AdvReac Type Severity Reaction Status Date / Time propoxyphene Allergy Severe Unknown Verified 08/10/23 08:54 [From Darin] Review of Systems Narrative: Constitutional symptoms: Negative except as documented in HPI. Skin symptoms: Negative except as documented in HPI. Eye symptoms: Negative except as documented in HPI. ENMT symptoms: Negative except as documented in HPI. Respiratory symptoms: Negative except as documented in HPI. Cardiovascular symptoms: Negative except as documented in HPI. Gastrointestinal symptoms: Negative except as documented in HPI. Genitourinary symptoms: Negative except as documented in HPI. Musculoskeletal symptoms: Negative except as documented in HPI. Neurologic symptoms: Negative except as documented in HPI. Psychiatric symptoms: Negative except as documented in HPI. Endocrine symptoms: Negative except as documented in HPI. 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 and left distal vertebral artery, nonstenotic atherosclerotic plaque of the origin of the right cervical internal carotid artery Macular degeneration Peripheral vascular disease Breast cancer Hypertension Hyperlipidemia Diabetes mellitus, type II Osteoarthritis of right knee Osteoarthritis of left knee Surgical History S/P peripheral artery angioplasty with stent placement left leg 2010 History of left mastectomy History of hernia repair History of hysterectomy Family History Mother Stroke Brain tumor Social History Smoking and tobacco/nicotine status: unknown if used tobacco/nicotine 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 Skin: Warm, dry. Head: Normocephalic, atraumatic. Neck: Supple, trachea midline. Eye: Extraocular movements are intact. Ears, nose, mouth and throat: mucosa moist. Cardiovascular: Regular, Normal peripheral perfusion. Respiratory: Lungs are clear to auscultation, respirations are non-labored, breath sounds are equal, Symmetrical chest wall expansion. Gastrointestinal: Soft, Nontender, Non distended Musculoskeletal: Normal ROM, no deformity. Neurological: Alert and oriented, No focal neurological deficit observed. Psychiatric: Cooperative, appropriate mood & affect. Course Vital Signs: Vital signs: Vital Signs Temperature 98 F 03/14/24 20:30 Pulse Rate 81 03/14/24 22:17 Respiratory Rate 18 03/14/24 20:30 Blood Pressure 149/63 03/14/24 22:17 Pulse Oximetry 91 03/14/24 22:17 MDM - Fall Medical Decision Making CT head: No acute intracranial process. no intracranial hemorrhage, no evidence of infarct. no evidence of acute fracture.This was reviewed and interpreted by myself the ER physician. CT chest abdomen pelvis: No acute spaces. No fractures. She has some atelectasis. Paraesophageal hernia. Cholelithiasis without cholecystitis. Diverticulosis without diverticulitis. This was reviewed and interpreted by myself the emergency room physician. I also reviewed the radiology report. Assessment and plan: Fall ?Discussed with family that they need to talk with her primary care provider about implementing measures to prevent falls. It appears she is having increased frequency. - Discharged home - Discussed plan with patient. Answered any questions. - Evaluation and treatment of this problem were appropriate in the emergency setting. Lab Data Radiology Impressions Chest/Abdomen/Pelvis CT 03/14/24 21:04 IMPRESSION: 1. Large anterior paraesophageal hernia measuring approximately 13.8 cm transversely. This contains the entire stomach which is inverted although nonobstructed. Appearance is similar to chest radiograph from 2022. 2. Bibasilar subsegmental atelectasis, left greater than right. IMPRESSION: 1. Cholelithiasis without evidence of acute cholecystitis. 2. Diverticulosis without diverticulitis Head CT 03/14/24 21:04 IMPRESSION: Genralized atrophy, No acute intracranial abnormality. All radiology interpretation(s) finalized by discharge Discharge Plan Discharge Patient Disposition: Home Clinical Impression: Fall Condition: Stable Prescriptions: No Action metoprolol tartrate 50 mg tablet 50 mg PO BID Qty: 60 11RF clopidogrel 75 mg tablet 75 mg PO DAILY Qty: 30 11RF Hold Instructions: Resume on 01/11/23. hold until PCP follow up gabapentin 300 mg capsule See Rx Instructions .ROUTE .COMPLEX Qty: 270 3RF Dose Instruction: TAKE 1 CAPSULE BY MOUTH IN THE MORNING AND 2 IN THE EVENING Rx Instructions: TAKE 1 CAPSULE BY MOUTH IN THE MORNING AND 2 IN THE EVENING glimepiride 1 mg tablet See Rx Instructions .ROUTE .COMPLEX Qty: 180 3RF Dose Instruction: Take 1 tablet by mouth twice daily Rx Instructions: Take 1 tablet by mouth twice daily ferrous sulfate 324 mg (65 mg iron) tablet,delayed release (DR/EC) 324 mg PO DAILY 30 Days Qty: 30 5RF lovastatin 40 mg tablet See Rx Instructions .ROUTE .COMPLEX Qty: 90 3RF Dose Instruction: Take 1 tablet by mouth once daily Rx Instructions: Take 1 tablet by mouth once daily amlodipine 5 mg tablet 5 mg PO BID Qty: 60 11RF metformin 500 mg tablet See Rx Instructions .ROUTE .COMPLEX Qty: 180 3RF Dose Instruction: Take 1 tablet by mouth twice daily Rx Instructions: Take 1 tablet by mouth twice daily B Complex-Vitamin B12 Tablet 1 tab PO DAILY Qty: 30 0RF Discharge Orders: Discharge ED (Routine); Ordered 03/14/24 Ordered By: Kaitlin Álvarez Referrals: Lb Akers MD [Primary Care Provider] - Discharge Diet: Usual diet Discharge Activity: Increase activity as tolerated Patient Instructions: Fall Prevention for Older Adults (ED), Opioid Safety, Pain Management Activity Restrictions/Additional Instructions: Thank you for choosing [facility] for your healthcare needs today. Please realize this is an emergency room and that we are providing you with a medical screening exam and this may not be complete and all inclusive of all the testing and or work up that you may need to determine your ailment or severity of your illness. You have been screened and evaluated and felt safe for discharge. Health conditions do change or evolve sometimes and as such it is important that you follow up with your Primary Doctor to be re checked, 3-5 days is a general good time frame for follow up. 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
[2024-03-14 21:34] VITALS: BP 170/71; PULSE 86; O2SAT 93
[2024-03-14 22:00] VITALS: BP 155/64; PULSE 84; O2SAT 92
[2024-03-14 22:17] VITALS: BP 149/63; PULSE 81; O2SAT 91
[2024-03-14 22:59] LABS: Basophils % 0.5 %; Eosinophils % 0.3 %; Hematocrit 35.9 % (36-47); Mean Corpuscular HGB Conc 32.6 g/dL (30-55); Mean Corpuscular Volume 89.1 fl (85-98); Mean Platelet Volume 9.4 fL (7.4-10.4); Monocytes # 0.7 10^3/uL (0.2-0.9); Monocytes % 11.7 %; Neutrophils # 4.25 10^3/uL (1.8-7.7); Neutrophils % 70.2 %; Nucleated Red Blood Cells % 0 %; Platelet Count 207 10^3/cmm (157-399); Red Blood Count 4.03 10^6/uL (3.85-5.65); Red Cell Distribution Width 12.7 % (12.1-15.1); White Blood Count 6.06 10^3/uL (3.29-11.43)
[2024-03-14 23:16] LABS: Alanine Aminotransferase 11 U/L (0-33); Albumin Level 3.9 g/dL (3.5-5.2); Alkaline Phosphatase 89 U/L (35-105); Anion Gap 14.3 (5-19); Aspartate Amino Transferase 18 U/L (0-32); Blood Urea Nitrogen 18 mg/dL (8-23); Calcium 9.2 mg/dL (8.5-10.5); Carbon Dioxide 26 mmol/L (22-29); Chloride 102 mmol/L (98-107); Creatinine Clr Calc Pharmacy 46.8367; Globulin 2.8 g/dL (1.3-4.6); Glucose 212 mg/dL (65-115); Osmolality Calculated 294 mOsm/kg (285-295); Potassium 4.3 mmol/L (3.5-5.1); Sodium 138 mmol/L (136-145); Total Bilirubin 0.5 mg/dL (0.15-1.2); Total Protein 6.7 g/dL (6.6-8.7)
[2024-03-15] VITALS (10 sets, daily range): BP systolic 125–166; BP diastolic 59–108; PULSE 70–105; RESP 14–18; TEMP 36.6–36.9; O2SAT 90–95
[2024-03-15 00:07] LABS: Bacteria Urine 3+ /hpf; Bilirubin Urine Negative (Negative); Blood Urine 1+ (Negative); Glucose Urine UA Negative (Normal); Hyaline Casts Urine 2.05 /lpf; Ketones Urine Negative (Negative); Leukocyte Esterase Urine 2+ (Negative); Nitrate Urine Positive (Negative); Protein Urine 1+ (Negative); Specific Gravity, Urine 1.008 (1.005-1.030); Squamous Epithelial Cell Urine 0-5 /hpf (0-5); Urine Appearance Clear (CLEAR); Urine Color Yellow (Yellow); Urobilinogen Urine 0.2 mg/dL (Negative)
[2024-03-15 00:10] LABS: Add Urine Culture? Yes
[2024-03-15] MEDS: cefTRIAXone 1,000 mg SDV 1000 MG IVP (02:13)
--- NOTE | 2024-03-15 02:14 | P.HP_ITS ---
Providers/Chief Complaint 2 Admitting Physician: Usman Cortes MD Primary Care Provider: Lb Akers MD Chief Complaint: fall pain in abd right side History of Present Illness Niya Gupta is a 88 year old female comes in accompanied by her Carlos and daughter Vida. She was seen this morning by Dr. Islas in the office for blood work. She went home by noon and at 1230 she had fallen at her own driveway getting out of the car. Since then she has not been very mobile. When she went to her appointment she walked to the car and into the office with her quad cane but by presentation to the emergency department this 5 PM she was unable to walk without the assistance of 3 people. Patient had a CVA years ago and macular degeneration. She had carotid narrowing 2016 and had carotid endarterectomy left side per her . Patient had a stent in her leg as well but no history of MO. She had breast cancer 1991 and had been on tamoxifen for many years. Patient has never been a smoker alcohol is none she wants DNR status per discussion with Vida and Carlos patient is also present but not answering questions reliably Review of Systems 2 Narrative: Vida says patient was complaining of pain prompting presentation to the emergency department Medications/Allergies Home Medications Medication Instructions Recorded Confirmed Last Taken Type vitamin B complex (B 1 tab PO DAILY #30 tabs 01/04/23 03/14/24 Unknown Rx Complex-Vitamin B12 tablet) clopidogrel 75 mg tablet 75 mg PO DAILY #30 tabs 12/27/23 03/14/24 Unknown Rx gabapentin 300 mg capsule See Rx Instructions .Route 01/05/24 03/14/24 Unknown Rx .COMPLEX #270 caps glimepiride 1 mg tablet See Rx Instructions .Route 01/10/24 03/14/24 Unknown Rx .COMPLEX #180 tabs amlodipine 5 mg tablet 5 mg PO BID #60 tabs 01/18/24 03/14/24 Unknown Rx ferrous sulfate 324 mg (65 mg 324 mg PO DAILY 30 days #30 tabs 01/18/24 03/14/24 Unknown Rx iron) tablet,delayed release lovastatin 40 mg tablet See Rx Instructions .Route 01/18/24 03/14/24 Unknown Rx .COMPLEX #90 tabs metformin 500 mg tablet See Rx Instructions .Route 03/05/24 03/14/24 Unknown Rx .COMPLEX #180 tabs metoprolol tartrate 50 mg tablet 50 mg PO BID #60 tabs 03/14/24 03/14/24 Unknown Rx Allergies Allergy/AdvReac Type Severity Reaction Status Date / Time propoxyphene Allergy Severe Unknown Verified 08/10/23 08:54 [From Ozzy-N] PFSH Acute 2 PFSH: Medical History History of echocardiogram 2017 EF 60%, grade I/IV diastolic dysfunction CVA (cerebral vascular accident) 2017 left basal ganglia Carotid artery disease CTA neck 2017 62% stenosis at origin and 70% stenosis proximal left cervical internal carotid artery, 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 and left distal vertebral artery, nonstenotic atherosclerotic plaque of the origin of the right cervical internal carotid artery Macular degeneration Peripheral vascular disease Breast cancer Hypertension Hyperlipidemia Diabetes mellitus, type II Osteoarthritis of right knee Osteoarthritis of left knee Surgical History S/P peripheral artery angioplasty with stent placement left leg 2010 History of left mastectomy History of hernia repair History of hysterectomy Family History Mother Stroke Brain tumor Social History Smoking and tobacco/nicotine status: unknown if used tobacco/nicotine 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 Patient is sleeping peacefully but awakens easily to name CV regular rate and rhythm lungs clear to auscultation bilaterally with moderate effort she is unable to sit forward Abdomen positive bowel sounds soft nontender Calves 1+ pretibial edema bilaterally Neck no bruits Skin warm and dry Data 03/14/24 22:55 03/14/24 22:55 A&P Assessment and plan (1) UTI (urinary tract infection): Patient will be treated with Rocephin monitor for improvement of her weakness and confusion (2) Acute metabolic encephalopathy: Patient has had some confusion waxing and waning since her stroke 2017. She also has had macular degeneration. Patient typically is able to walk with a quad cane but today has become weak fallen and then progressively weaker (3) Fall: Suspected weakness related to UTI compounding chronic weakness and deconditioning (4) Macular degeneration: Chronic (5) Diabetes mellitus, type II: Resume metformin and glimepiride. Will add fingerstick blood glucose before every meal and nightly and low scale sliding scale insulin Attestations 2 Medical Necessity Statement*: Patient is admitted to hospital for UTI under observation and to start physical therapy. Anticipate rapid improvement with antibiotics and that her hospital stay will not cross 2 midnights. If not improving will need to be changed to inpatient Coding Level of Care Code 78892 Diagnoses UTI (urinary tract infection) N39.0 Acute metabolic encephalopathy G93.41 Fall W19.XXXA Macular degeneration H35.30 Diabetes mellitus, type II E11.9 Time Spent (min) 50
[2024-03-15] MEDS: potassium chloride ER 10 mEq Tablet PO (09:07)
[2024-03-15] MEDS: FUROsemide 20 mg Tablet PO (09:07)
[2024-03-15] MEDS: docusate sodium 100 mg Capsule PO ×2 (09:07→17:33)
[2024-03-15] MEDS: losartan 50 mg Tablet 25 MG PO (09:07)
[2024-03-15 11:58] LABS: Glucose Point of Care 251 mg/dL (70-110)
[2024-03-15] MEDS: insulin lispro 100 unit/1 mL SUBCUT ×2 (12:07→17:32)
--- NOTE | 2024-03-15 12:17 | PC.NURSE ---
Update on patient status given to Roselia, daughter. States she will be here this evening.
--- NOTE | 2024-03-15 13:05 | PC.CHAP ---
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 [] Patient/Family/Request visit [] Outpatient visit [] Follow-up visit [] Physician referral [] Code/Alert [] Routine visit [] Staff referral [] Actively dying [] Patient sleeping [] Family support [] [] Out of room [] Palliative care [] [] Receiving care in room [] Pre-surgical visit [] Trauma [] Long length of stay [] ICU visit [] Other: Relational/Emotional Strength [] Patient feels connected with others/family/visitors/staff [] Distress [] Loneliness/isolation [] Abandonment Spirituality of Patient [] Person of Sarah [] Attends Evangelical of their Sarah [] Believes in Prayer [] Reads Bible or Baptism materials [] There are Spiritual issues to be addressed Patient Office Rep Interventions [] Prayer [] Active listening [] Non-anxious presence [] Spiritual/emotional support [] Crisis/trauma care [] Spiritual counseling [] Bereavement support [] Provided bereavement packet [] Provided Bible/devotional materials [] Provided toy/stuffed animal, coloring book to patient or family member [] Provided Communion [] Anointing/[place] [] Salvation [] Completed spiritual assessment [] Other: Impact on Illness or Injury [] Angry [] Fearful [] Anxious [] Often cries [] Exhaustion [] Unable to work [] Unable to attend restorationist [] Unable to walk/stand [] Unable to read [] Unable to drive [] Unable to eat/drink [] Unable to sleep [] Unable to be with family [] Patient intubated [] Other: Summary Time spent with patient
--- NOTE | 2024-03-15 14:27 | P.PN_ITS ---
Subjective 2 Subjective: Patient was seen this morning, she is alert to person, to place, not to time she does not know the year of her , she can follow commands, but does easily become confused, she tells me that she lives at home with her , Carlos, but does not know her address, she tells me that Carlos takes care of her, helps her with most of her activities of daily living, she denies any pain complaints, no headache, no blurry vision Vitals/I&O/Wt Last Vital Signs Temp 98.4 F 03/15/24 12:00 Pulse 83 03/15/24 12:00 Resp 15 03/15/24 12:00 BP 126/87 03/15/24 12:00 Pulse Ox 91 03/15/24 12:00 O2 Del Method Room Air 03/15/24 12:00 03/14/24 03/15/24 03/15/24 22:59 06:59 14:59 Intake Total 260 / 260 Balance 260 / 260 Weight last 48 hrs Weight 76.005 kg Weight 72.575 kg Physical Exam 2 Const: COMMON NORMALS: no acute distress ORIENTATION/CONSCIOUSNESS: Yes awake, Yes oriented to person and Yes oriented to place; not oriented to time Resp: COMMON NORMALS: normal respiratory effort, No retractions, No use of accessory muscles and clear to auscultation bilaterally AUSCULTATION: clear to auscultation bilaterally Cardio: COMMON NORMALS: regular rate, regular rhythm, S1 normal heart sound present and S2 normal heart sound present RATE: regular rate RHYTHM: r egular rhythm HEART SOUNDS: S1 normal heart sound present and S2 normal heart sound present GI: COMMON NORMALS: Normal to inspection, nondistended, normoactive bowel sounds present and non-tender Extremity: COMMON NORMALS: no pedal edema Neuro: SENSORIUM/ORIENTATION: Yes oriented to person, Yes oriented to place and No oriented to time Data 03/14/24 22:55 03/14/24 22:55 A&P Assessment and plan (1) UTI (urinary tract infection): Patient will be treated with Rocephin monitor for improvement of her weakness and confusion (2) Acute metabolic encephalopathy: Patient has had some confusion waxing and waning since her stroke 2017. She also has had macular degeneration. Patient typically is able to walk with a quad cane but today has become weak fallen and then progressively weaker (3) Fall: Suspected weakness related to UTI compounding chronic weakness and deconditioning (4) Macular degeneration: Chronic (5) Diabetes mellitus, type II: Low-dose sliding scale Paraesophageal hernia monitor Bibasilar atelectasis, monitor TOT Attestations 2 Medical Necessity Statement*: Patient requires hospitalization for UTI, altered mental status Diagnoses UTI (urinary tract infection) N39.0 Acute metabolic encephalopathy G93.41 Fall W19.XXXA Macular degeneration H35.30 Diabetes mellitus, type II E11.9
[2024-03-15 16:37] LABS: Glucose Point of Care 253 mg/dL (70-110)
[2024-03-15 20:24] LABS: Glucose Point of Care 282 mg/dL (70-110)
[2024-03-16] MEDS: cefTRIAXone 1,000 mg SDV 1000 MG IVP (02:44)
[2024-03-16 04:00] VITALS: BP 151/75; PULSE 98; RESP 18; TEMP 36.6; O2SAT 95
[2024-03-16 04:46] LABS: Basophils % 0.5 %; Eosinophils % 0.5 %; Hematocrit 35.1 % (36-47); Lymphocytes # 0.8 10^3/uL (0.8-4.8); Lymphocytes % 12.8 %; Mean Corpuscular HGB Conc 32.2 g/dL (30-55); Mean Corpuscular Hemoglobin 29.4 pg (27-33); Mean Corpuscular Volume 91.2 fl (85-98); Mean Platelet Volume 10.2 fL (7.4-10.4); Monocytes # 0.8 10^3/uL (0.2-0.9); Monocytes % 11.9 %; Neutrophils # 4.74 10^3/uL (1.8-7.7); Neutrophils % 74.1 %; Nucleated Red Blood Cells % 0 %; Platelet Count 194 10^3/cmm (157-399); Red Blood Count 3.85 10^6/uL (3.85-5.65); Red Cell Distribution Width 12.8 % (12.1-15.1); White Blood Count 6.39 10^3/uL (3.29-11.43)
[2024-03-16 05:24] LABS: Anion Gap 13.9 (5-19); Blood Urea Nitrogen 13 mg/dL (8-23); Calcium 8.3 mg/dL (8.5-10.5); Carbon Dioxide 27 mmol/L (22-29); Chloride 102 mmol/L (98-107); Creatinine Clr Calc Pharmacy 53.7644; Glucose 236 mg/dL (65-115); Osmolality Calculated 296 mOsm/kg (285-295); Potassium 3.9 mmol/L (3.5-5.1); Sodium 139 mmol/L (136-145)
[2024-03-16 06:00] VITALS: BMI 24.9
[2024-03-16] MEDS: enoxaparin 40 mg/0.4 mL Syringe SUBCUT (06:00)
[2024-03-16 06:55] LABS: Glucose Point of Care 224 mg/dL (70-110)
[2024-03-16 08:00] VITALS: BP 141/93; PULSE 90; RESP 15; TEMP 36.7; O2SAT 94
[2024-03-16] MEDS: FUROsemide 20 mg Tablet PO (08:03)
[2024-03-16 08:04] VITALS: BP 141/93
[2024-03-16] MEDS: docusate sodium 100 mg Capsule PO ×2 (08:04→17:10)
[2024-03-16] MEDS: losartan 50 mg Tablet 25 MG PO (08:04)
[2024-03-16] MEDS: insulin lispro 100 unit/1 mL SUBCUT ×3 (08:11→17:26)
[2024-03-16] MEDS: potassium chloride ER 10 mEq Tablet PO (08:12)
--- NOTE | 2024-03-16 08:34 | PC.PHAR ---
Pt last discharged 03/14/24. Med list unchanged-all but 3 medications on hold possibly for surgery.
[2024-03-16 12:00] VITALS: BP 129/60; PULSE 93; RESP 15; TEMP 36.8; O2SAT 95
[2024-03-16 12:31] LABS: Glucose Point of Care 262 mg/dL (70-110)
--- NOTE | 2024-03-16 14:11 | P.PN_ITS ---
Subjective 2 Subjective: Patient was seen this morning, she alert to person, not to place, not to time she is quite upset that she is not home right now, she has no complaints except she wants to go home, discussed importance of treatment of her UTI, PT OT, the need for rehab, however she is keeps repeating that she wants to go home, can follow commands, does not know her address, does not know her birthdate, does not know why she is here in the hospital after had a detailed discussion with her about her hospitalization Vitals/I&O/Wt Last Vital Signs Temp 98.3 F 03/16/24 12:00 Pulse 93 03/16/24 12:00 Resp 15 03/16/24 12:00 BP 129/60 03/16/24 12:00 Pulse Ox 95 03/16/24 12:00 O2 Del Method Room Air 03/16/24 12:00 03/15/24 03/16/24 03/16/24 22:59 06:59 14:59 Intake Total 472 / 732 236 / 968 375 / 375 Balance 472 / 732 236 / 968 375 / 375 Weight last 48 hrs Weight 74.446 kg Weight 76.005 kg Weight 72.575 kg Physical Exam 2 Const: COMMON NORMALS: no acute distress ORIENTATION/CONSCIOUSNESS: Yes awake, Yes oriented to person and Yes confused; not oriented to place and not oriented to time Resp: COMMON NORMALS: normal respiratory effort, No retractions, No use of accessory muscles and clear to auscultation bilaterally AUSCULTATION: clear to auscultation bilaterally Cardio: COMMON NORMALS: regular rate, regular rhythm, S1 normal heart sound present and S2 normal heart sound present RATE: regular rate RHYTHM: r egular rhythm HEART SOUNDS: S1 normal heart sound present and S2 normal heart sound present GI: COMMON NORMALS: Normal to inspection, nondistended, normoactive bowel sounds present and non-tender Extremity: COMMON NORMALS: no pedal edema Neuro: SENSORIUM/ORIENTATION: Yes oriented to person, No oriented to place and No oriented to time Data 03/16/24 03:49 03/16/24 03:49 Micro: Microbiology 03/14/24 23:54 Urine Culture - Preliminary Urine,Clean Catch Gram Negative Rods A&P Assessment and plan (1) UTI (urinary tract infection): Patient will be treated with Rocephin monitor for improvement of her weakness and confusion (2) Acute metabolic encephalopathy: Patient has had some confusion waxing and waning since her stroke 2017. She also has had macular degeneration. Patient typically is able to walk with a quad cane but today has become weak fallen and then progressively weaker PT OT Monitor mentation (3) Fall: Suspected weakness related to UTI compounding chronic weakness and deconditioning (4) Macular degeneration: Chronic (5) Diabetes mellitus, type II: Low-dose sliding scale Paraesophageal hernia monitor Bibasilar atelectasis, monitor TOT (6) Physical deconditioning: Attestations 2 Medical Necessity Statement*: Patient requires hospitalization for metabolic encephalopathy, UTI, deconditioning Diagnoses UTI (urinary tract infection) N39.0 Acute metabolic encephalopathy G93.41 Fall W19.XXXA Macular degeneration H35.30 Diabetes mellitus, type II E11.9 Physical deconditioning R53.81
[2024-03-16 16:00] VITALS: BP 147/64; PULSE 94; RESP 15; TEMP 36.6; O2SAT 94
[2024-03-16 16:17] LABS: Glucose Point of Care 286 mg/dL (70-110)
[2024-03-16] MEDS: acetaminophen 325 mg Tablet 650 MG PO (17:08)
[2024-03-16 20:00] VITALS: BP 142/74; PULSE 82; RESP 16; TEMP 36.4; O2SAT 95
[2024-03-16 20:48] LABS: Glucose Point of Care 172 mg/dL (70-110)
[2024-03-17] VITALS (7 sets, daily range): BP systolic 144–162; BP diastolic 69–81; PULSE 56–95; RESP 14–18; TEMP 36.6–37.1; O2SAT 90–95; BMI 23.7; BMI 24.0
[2024-03-17] MEDS: cefTRIAXone 1,000 mg SDV 1000 MG IVP (01:19)
[2024-03-17 05:37] LABS: Basophils % 0.7 %; Eosinophils # 0.1 10^3/uL (0.0-0.8); Eosinophils % 1.1 %; Lymphocytes # 1.2 10^3/uL (0.8-4.8); Lymphocytes % 20.2 %; Mean Corpuscular Volume 90.9 fl (85-98); Mean Platelet Volume 9.6 fL (7.4-10.4); Monocytes # 0.7 10^3/uL (0.2-0.9); Monocytes % 10.8 %; Neutrophils # 4.09 10^3/uL (1.8-7.7); Nucleated Red Blood Cells % 0 %; Platelet Count 206 10^3/cmm (157-399); Red Blood Count 4.07 10^6/uL (3.85-5.65); Red Cell Distribution Width 12.9 % (12.1-15.1)
[2024-03-17 05:57] LABS: Anion Gap 13.9 (5-19); Blood Urea Nitrogen 14 mg/dL (8-23); Calcium 8.5 mg/dL (8.5-10.5); Carbon Dioxide 27 mmol/L (22-29); Chloride 104 mmol/L (98-107); Creatinine Clr Calc Pharmacy 53.2766; Glucose 211 mg/dL (65-115); Osmolality Calculated 299 mOsm/kg (285-295); Potassium 3.9 mmol/L (3.5-5.1); Sodium 141 mmol/L (136-145)
[2024-03-17] MEDS: enoxaparin 40 mg/0.4 mL Syringe SUBCUT (06:00)
[2024-03-17 06:44] LABS: Glucose Point of Care 192 mg/dL (70-110)
[2024-03-17] MEDS: potassium chloride ER 10 mEq Tablet PO (09:46)
[2024-03-17] MEDS: losartan 50 mg Tablet 25 MG PO (09:46)
[2024-03-17] MEDS: FUROsemide 20 mg Tablet PO (09:47)
[2024-03-17] MEDS: docusate sodium 100 mg Capsule PO ×2 (09:48→17:01)
[2024-03-17] MEDS: atorvastatin 40 mg Tablet 20 MG PO (09:49)
[2024-03-17] MEDS: gabapentin 300 mg Capsule PO (09:50)
[2024-03-17] MEDS: clopidogrel 75 mg Tablet PO (09:52)
[2024-03-17] MEDS: metoprolol tartrate 50 mg Tablet 25 MG PO ×2 (09:52→17:02)
[2024-03-17] MEDS: insulin lispro 100 unit/1 mL SUBCUT ×3 (09:58→18:03)
[2024-03-17] MEDS: ferrous sulfate EC 325 mg Tablet PO (10:03)
[2024-03-17 11:06] LABS: Glucose Point of Care 262 mg/dL (70-110)
--- NOTE | 2024-03-17 15:32 | P.PN_ITS ---
Subjective 2 Subjective: Patient was seen this morning, she has no complaints this morning, alert to person, not to place, not to time, she follows commands Vitals/I&O/Wt Last Vital Signs Temp 98.2 F 03/17/24 12:00 Pulse 56 L 03/17/24 12:00 Resp 15 03/17/24 12:00 BP 148/81 03/17/24 12:00 Pulse Ox 93 03/17/24 12:00 O2 Del Method Room Air 03/17/24 12:00 03/17/24 03/17/24 03/17/24 06:59 14:59 22:59 Intake Total 430 / 430 Balance 430 / 430 Weight last 48 hrs Weight 71.668 kg Weight 70.76 kg Weight 74.446 kg Physical Exam 2 Const: COMMON NORMALS: no acute distress Resp: COMMON NORMALS: normal respiratory effort, No retractions, No use of accessory muscles and clear to auscultation bilaterally AUSCULTATION: clear to auscultation bilaterally Cardio: COMMON NORMALS: regular rate, regular rhythm, S1 normal heart sound present and S2 normal heart sound present RATE: regular rate RHYTHM: r egular rhythm HEART SOUNDS: S1 normal heart sound present and S2 normal heart sound present GI: COMMON NORMALS: Normal to inspection, nondistended, normoactive bowel sounds present and non-tender Extremity: COMMON NORMALS: no pedal edema Data 03/17/24 05:17 03/17/24 05:17 Micro: Microbiology 03/14/24 23:54 Urine Culture - Final Urine,Clean Catch Escherichia coli A&P Assessment and plan (1) UTI (urinary tract infection): Urine culture showing E. coli Continue Rocephin (2) Acute metabolic encephalopathy: Patient has had some confusion waxing and waning since her stroke 2017. She also has had macular degeneration. Patient typically is able to walk with a quad cane but today has become weak fallen and then progressively weaker PT OT Monitor mentation (3) Fall: Suspected weakness related to UTI compounding chronic weakness and deconditioning (4) Macular degeneration: Chronic (5) Diabetes mellitus, type II: Low-dose sliding scale Paraesophageal hernia monitor Bibasilar atelectasis, monitor TOT (6) Physical deconditioning: Attestations 2 Medical Necessity Statement*: Patient requires hospitalization for E. coli UTI Diagnoses UTI (urinary tract infection) N39.0 Acute metabolic encephalopathy G93.41 Fall W19.XXXA Macular degeneration H35.30 Diabetes mellitus, type II E11.9 Physical deconditioning R53.81
[2024-03-17 16:47] LABS: Glucose Point of Care 203 mg/dL (70-110)
[2024-03-17] MEDS: gabapentin 300 mg Capsule 600 MG PO (20:28)
[2024-03-17 20:51] LABS: Glucose Point of Care 165 mg/dL (70-110)
[2024-03-18] VITALS: BP 151/76; PULSE 79; RESP 20; TEMP 37.9; O2SAT 93
[2024-03-18] MEDS: cefTRIAXone 1,000 mg SDV 1000 MG IVP (02:31)
[2024-03-18 04:00] VITALS: BP 136/62; PULSE 80; RESP 17; TEMP 37.3; O2SAT 93
[2024-03-18 04:37] LABS: Basophils % 0.6 %; Eosinophils # 0.1 10^3/uL (0.0-0.8); Eosinophils % 0.8 %; Hematocrit 35.4 % (36-47); Lymphocytes # 1.3 10^3/uL (0.8-4.8); Lymphocytes % 21.1 %; Mean Corpuscular HGB Conc 31.9 g/dL (30-55); Mean Corpuscular Hemoglobin 28.8 pg (27-33); Mean Corpuscular Volume 90.3 fl (85-98); Mean Platelet Volume 9.7 fL (7.4-10.4); Monocytes # 0.9 10^3/uL (0.2-0.9); Monocytes % 13.7 %; Neutrophils # 3.96 10^3/uL (1.8-7.7); Neutrophils % 63.6 %; Nucleated Red Blood Cells % 0 %; Platelet Count 185 10^3/cmm (157-399); Red Blood Count 3.92 10^6/uL (3.85-5.65); Red Cell Distribution Width 12.8 % (12.1-15.1); White Blood Count 6.22 10^3/uL (3.29-11.43)
[2024-03-18 04:54] LABS: Anion Gap 15.1 (5-19); Blood Urea Nitrogen 16 mg/dL (8-23); Calcium 8.2 mg/dL (8.5-10.5); Carbon Dioxide 25 mmol/L (22-29); Chloride 102 mmol/L (98-107); Creatinine Clr Calc Pharmacy 51.9818; Glucose 185 mg/dL (65-115); Osmolality Calculated 292 mOsm/kg (285-295); Potassium 4.1 mmol/L (3.5-5.1); Sodium 138 mmol/L (136-145)
[2024-03-18] MEDS: enoxaparin 40 mg/0.4 mL Syringe SUBCUT (06:10)
[2024-03-18 06:24] LABS: Glucose Point of Care 173 mg/dL (70-110)
[2024-03-18 07:00] VITALS: BP 121/66; PULSE 85; RESP 15; TEMP 36.6; O2SAT 94
[2024-03-18 07:56] LABS: Glucose Point of Care 207 mg/dL (70-110)
[2024-03-18] MEDS: atorvastatin 40 mg Tablet 20 MG PO (09:16)
[2024-03-18] MEDS: clopidogrel 75 mg Tablet PO (09:16)
[2024-03-18] MEDS: ferrous sulfate EC 325 mg Tablet PO (09:16)
[2024-03-18] MEDS: potassium chloride ER 10 mEq Tablet PO (09:16)
[2024-03-18] MEDS: docusate sodium 100 mg Capsule PO (09:16)
[2024-03-18] MEDS: gabapentin 300 mg Capsule PO (09:16)
[2024-03-18] MEDS: FUROsemide 20 mg Tablet PO (09:16)
[2024-03-18] MEDS: metoprolol tartrate 50 mg Tablet 25 MG PO (09:17)
[2024-03-18] MEDS: insulin lispro 100 unit/1 mL SUBCUT ×2 (09:17→11:59)
[2024-03-18 09:18] VITALS: BP 121/66
[2024-03-18] MEDS: losartan 50 mg Tablet 25 MG PO (09:18)
[2024-03-18 10:00] VITALS: BP 118/72; PULSE 86; RESP 16; TEMP 37.4; O2SAT 95
--- NOTE | 2024-03-18 10:03 | PC.SOCIAL ---
IMM Update Pg. 2 of IMM updated and copy provided at bedside.
--- NOTE | 2024-03-18 10:07 | PC.CHAP ---
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 [] Patient/Family/Request visit [] Outpatient visit [] Follow-up visit [] Physician referral [] Code/Alert [x] Routine visit [] Staff referral [] Actively dying [] Patient sleeping [] Family support [] [] Out of room [] Palliative care [] [x] Receiving care in room [] Pre-surgical visit [] Trauma [] Long length of stay [] ICU visit [] Other: Relational/Emotional Strength [] Patient feels connected with others/family/visitors/staff [] Distress [] Loneliness/isolation [] Abandonment Spirituality of Patient [] Person of Sarah [] Attends Scientologist of their Sarah [] Believes in Prayer [] Reads Bible or Hindu materials [] There are Spiritual issues to be addressed Hogshead Liner Interventions [x] Prayer [] Active listening [] Non-anxious presence [] Spiritual/emotional support [] Crisis/trauma care [] Spiritual counseling [] Bereavement support [] Provided bereavement packet [] Provided Bible/devotional materials [] Provided toy/stuffed animal, coloring book to patient or family member [] Provided Communion [] Anointing/Scuddy [] Salvation [] Completed spiritual assessment [] Other: Impact on Illness or Injury [] Angry [] Fearful [] Anxious [] Often cries [] Exhaustion [] Unable to work [] Unable to attend mosque [] Unable to walk/stand [] Unable to read [] Unable to drive [] Unable to eat/drink [] Unable to sleep [] Unable to be with family [] Patient intubated [] Other: Summary Time spent with patient
[2024-03-18 11:36] LABS: Glucose Point of Care 313 mg/dL (70-110)
--- NOTE | 2024-03-18 13:26 | P.DS_ITS ---
Discharge Providers Date of Admission: 03/15/24 02:03 Date of Discharge: March 18, 2024 Attending Provider at Admission: Usman Cortes MD Attending Provider at Discharge: Zack James MD Primary Care Provider: Lb Akers MD Diagnoses at Discharge Discharge Diagnosis (1) UTI (urinary tract infection): Status: Acute (2) Acute metabolic encephalopathy: Status: Acute (3) Fall: Status: Acute (4) Macular degeneration: Status: Chronic (5) Diabetes mellitus, type II: Status: Chronic (6) Physical deconditioning: Status: Acute Reason for Visit Reason for Visit: fall pain in abd right side Hospital Course Hospital Course This is a pleasant 88-year-old female with a past medical history of CVA, macular degeneration, breast cancer history of carotid artery stenosis on the left side status post carotid endarterectomy, type 2 diabetes mellitus Patient presents [facility] due to weakness, fatigue, confusion secondary to UTI, managed on IV antibiotics, overall clinically improved, discharged on p.o. antibiotics For her deconditioning, patient was discharged to [facility] facility Patient has had persistent episodes of confusion during hospitalization, family reports confusion waxing waning since her stroke in 2017, I suspect that she does some component of dementia. She was alert to person, to place, not to time, she would be forgetful at times for example she would forget her year of , s she did not remember her address at times. In addition she would have short-term memory loss such as forgetting what she had for breakfast in the morning while in the hospital. Thus I suspect that she has some degree of dementia, follow-up with neurology as outpatient. She was also found to have a paraesophageal hernia, monitor Type 2 diabetes mellitus, discharged on low-dose sliding scale Physical Exam Const: COMMON NORMALS: no acute distress ORIENTATION/CONSCIOUSNESS: Yes awake, Yes oriented to person and Yes oriented to place; not oriented to time Resp: COMMON NORMALS: normal respiratory effort, No retractions, No use of accessory muscles and clear to auscultation bilaterally AUSCULTATION: clear to auscultation bilaterally Cardio: COMMON NORMALS: regular rate, regular rhythm, S1 normal heart sound present and S2 normal heart sound present RATE: regular rate RHYTHM: regular rhythm HEART SOUNDS: S1 normal heart sound present and S2 normal heart sound present GI: COMMON NORMALS: Normal to inspection, nondistended, normoactive bowel sounds present and non-tender Extremity: COMMON NORMALS: no pedal edema Neuro: SENSORIUM/ORIENTATION: Yes oriented to person, Yes oriented to place and No oriented to time Psych: COMMON NORMALS: mental status grossly normal Discharge Data Studies Completed and Pending Completed Studies During Hospitalization Category Date Time Status CT chest abdomen pelvis [[place] [id number] Cat Scan 03/14/24 21:04 Completed ] Stat CT head wo con* [id number] Stat Cat Scan 03/14/24 21:04 Completed Radiology Impressions Chest/Abdomen/Pelvis CT 03/14/24 21:04 IMPRESSION: 1. Large anterior paraesophageal hernia measuring approximately 13.8 cm transversely. This contains the entire stomach which is inverted although nonobstructed. Appearance is similar to chest radiograph from 2022. 2. Bibasilar subsegmental atelectasis, left greater than right. IMPRESSION: 1. Cholelithiasis without evidence of acute cholecystitis. 2. Diverticulosis without diverticulitis Head CT 03/14/24 21:04 IMPRESSION: Genralized atrophy, No acute intracranial abnormality. Laboratory Results WBC 6.22 10^3/uL (3.29-11.43) 03/18/24 04:01 RBC 3.92 10^6/uL (3.85-5.65) 03/18/24 04:01 Hgb 11.30 g/dL (11.27-16.99) 03/18/24 04:01 Hct 35.4 % (36-47) L 03/18/24 04:01 MCV 90.3 fl (85-98) 03/18/24 04:01 MCH 28.8 pg (27-33) 03/18/24 04:01 MCHC 31.9 g/dL (30-55) 03/18/24 04:01 RDW 12.8 % (12.1-15.1) 03/18/24 04:01 Plt Count 185 10^3/cmm (157-399) 03/18/24 04:01 MPV 9.7 fL (7.4-10.4) 03/18/24 04:01 Neut % (Auto) 63.6 % 03/18/24 04:01 Lymph % (Auto) 21.1 % 03/18/24 04:01 Casey % (Auto) 13.7 % 03/18/24 04:01 Eos % (Auto) 0.8 % 03/18/24 04:01 Baso % (Auto) 0.6 % 03/18/24 04:01 Neut # (Auto) 3.96 10^3/uL (1.8-7.7) 03/18/24 04:01 Lymph # (Auto) 1.3 10^3/uL (0.8-4.8) 03/18/24 04:01 Casey # (Auto) 0.9 10^3/uL (0.2-0.9) 03/18/24 04:01 Eos # (Auto) 0.1 10^3/uL (0.0-0.8) 03/18/24 04:01 Baso # (Auto) 0.0 10^3/uL (0.0-0.1) 03/18/24 04:01 Nucleated RBC % (auto) 0 % 03/18/24 04:01 Nucleated RBCs # 0.0 /100WBC 03/18/24 04:01 Sodium 138 mmol/L (136-145) 03/18/24 04:01 Potassium 4.1 mmol/L (3.5-5.1) 03/18/24 04:01 Chloride 102 mmol/L (98-107) 03/18/24 04:01 Carbon Dioxide 25 mmol/L (22-29) 03/18/24 04:01 Anion Gap 15.1 (5-19) 03/18/24 04:01 BUN 16 mg/dL (8-23) 03/18/24 04:01 Creatinine 0.8 mg/dL (0.5-0.9) 03/18/24 04:01 GFR Calculation Not Reportable 03/18/24 04:01 Glucose 185 mg/dL (65-115) H 03/18/24 04:01 POC Glucose 313 mg/dL (70-110) H 03/18/24 11:30 Calculated Osmolality 292 mOsm/kg (285-295) 03/18/24 04:01 Calcium 8.2 mg/dL (8.5-10.5) L 03/18/24 04:01 Total Bilirubin 0.5 mg/dL (0.15-1.2) 03/14/24 22:55 AST 18 U/L (0-32) 03/14/24 22:55 ALT 11 U/L (0-33) 03/14/24 22:55 Alkaline Phosphatase 89 U/L (35-105) 03/14/24 22:55 Total Protein 6.7 g/dL (6.6-8.7) 03/14/24 22:55 Albumin 3.9 g/dL (3.5-5.2) 03/14/24 22:55 Globulin 2.8 g/dL (1.3-4.6) 03/14/24 22:55 Urine Color Yellow (Yellow) 03/14/24 23:54 Urine Appearance Clear (CLEAR) 03/14/24 23:54 Urine pH 7.0 (5-7) 03/14/24 23:54 Ur Specific [place] 1.008 (1.005-1.030) 03/14/24 23:54 Urine Protein 1+ (Negative) A 03/14/24 23:54 Urine Glucose (UA) Negative (Normal) 03/14/24 23:54 Urine Ketones Negative (Negative) 03/14/24 23:54 Urine Blood 1+ (Negative) A 03/14/24 23:54 Urine Nitrate Positive (Negative) A 03/14/24 23:54 Urine Bilirubin Negative (Negative) 03/14/24 23:54 Urine Urobilinogen 0.2 mg/dL (Negative) 03/14/24 23:54 Ur Leukocyte Esterase 2+ (Negative) A 03/14/24 23:54 Urine RBC 6-10 /hpf (0-2) 03/14/24 23:54 Urine WBC 11-20 /hpf (0-5) H 03/14/24 23:54 Ur Squamous Epith Cells 0-5 /hpf (0-5) 03/14/24 23:54 Amorphous Sediment Not Reportable 03/14/24 23:54 Urine Bacteria 3+ /hpf (NONE) H 03/14/24 23:54 Hyaline Casts 2.05 /lpf 03/14/24 23:54 Vitals Last Vital Signs Temp 99.3 F 03/18/24 10:00 Pulse 86 03/18/24 10:00 Resp 16 03/18/24 10:00 BP 118/72 03/18/24 10:00 Pulse Ox 95 03/18/24 10:00 O2 Del Method Room Air 03/18/24 10:00 Discharge Plan Discharge Patient Disposition: Home Condition: Stable Prescriptions: New losartan 50 mg Tablet 25 mg PO DAILY 30 Days Qty: 15 0RF insulin lispro [Humalog U-100 Insulin] 100 unit/mL Solution See Rx Instructions .ROUTE .COMPLEX Qty: 10 0RF Rx Instructions: Inject, subcut, 3 times daily, after meals, based on low-dose sliding scale cefdinir 300 mg capsule 300 mg PO BID 3 Days Qty: 6 0RF Continued clopidogrel 75 mg tablet 75 mg PO DAILY Qty: 30 11RF Hold Instructions: Resume on 01/11/23. hold until PCP follow up gabapentin 300 mg capsule See Rx Instructions .ROUTE .COMPLEX Qty: 270 3RF Dose Instruction: TAKE 1 CAPSULE BY MOUTH IN THE MORNING AND 2 IN THE EVENING Rx Instructions: TAKE 1 CAPSULE BY MOUTH IN THE MORNING AND 2 IN THE EVENING ferrous sulfate 324 mg (65 mg iron) tablet,delayed release (DR/EC) 324 mg PO DAILY 30 Days Qty: 30 5RF vitamin B complex Tablet 1 tab PO DAILY metformin 500 mg tablet 500 mg PO BID lovastatin 40 mg tablet 40 mg PO DAILY Changed metoprolol tartrate 50 mg tablet 25 mg PO BID Qty: 60 11RF Discontinued amlodipine 5 mg tablet 5 mg PO BID Qty: 60 11RF glimepiride 1 mg tablet 1 mg PO BID Discharge Orders: Discharge Order (Routine); Ordered 03/18/24 Ordered By: Zack James Referrals: Lb Akers MD [Primary Care Provider] - Major Montes MD [Physician] - 2 weeks Discharge Diet: Usual diet Discharge Activity: Increase activity as tolerated Patient Instructions: Fall Prevention for Older Adults (ED), Opioid Safety, Pain Management Activity Restrictions/Additional Instructions: - Follow-up with neurology as outpatient Discharge Attestations Time Spent in Discharge Care*: greater than 30 min Quality Metrics Clinical Quality Measures [ No reported AMI, CVA or VTE this stay] Coding Level of Care Code 14347 Total time (in minutes) for Discharge: 45 Diagnoses UTI (urinary tract infection) N39.0 Acute metabolic encephalopathy G93.41 Fall W19.XXXA Macular degeneration H35.30 Diabetes mellitus, type II E11.9 Physical deconditioning R53.81
[2024-03-18 13:49] VITALS: BP 118/72; PULSE 86; RESP 16; TEMP 37.4; O2SAT 97
--- NOTE | 2024-03-18 14:05 | PC.NURSE ---
Discharge Report: Report called to Abbi at [facility]
== END 2024-03-18 14:45 | disposition skilled nursing facility (03) | DRG 689 ==
LOC: ER 03-15 01:57 → MEDSURG 03-15 02:26
PROVIDERS: Admitting Provider Internal Medicine; Emergency Provider Emergency Medicine; PCP Family Medicine; Visit Provider Family Medicine
DX: N39.0 Urinary tract infection, site not specified (principal); G93.41 Metabolic encephalopathy; J98.11 Atelectasis; H35.30 Unspecified macular degeneration; E11.51 Type 2 diabetes mellitus with diabetic peripheral angiopathy without gangrene; K44.9 Diaphragmatic hernia without obstruction or gangrene; Z66 Do not resuscitate; I10 Essential (primary) hypertension; Z86.73 Personal history of transient ischemic attack (TIA), and cerebral infarction without residual deficits; Z95.828 Presence of other vascular implants and grafts; Z91.81 History of falling; Z79.84 Long term (current) use of oral hypoglycemic drugs
CPT/HCPCS: 36415; 36416; 70450; 71250; 74176; 80048; 80053; 80061; 81001; 82962; 83036; 85025; 87077; 87086; 87186; 96372; 96374; 97116; 97161; 97165; 97530; 97535; 99285; J0696; J1650; J1815

== ENCOUNTER 2024-05-17 15:36 | Emergency (ER) | payer MEDICARE, SELFPAY ==
[2024-05-17 15:43] VITALS: BP 157/76; PULSE 82; RESP 18; TEMP 36.6; O2SAT 98; BMI 24.3
--- NOTE | 2024-05-17 16:26 | CTR_ITS ---
PROCEDURE INFORMATION: Exam: CT Head Without Contrast Exam date and time: 05/17/2024 5:35 PM Age: 88 years old Clinical indication: Injury or trauma; Fall; Blunt trauma (contusions or hematomas); Additional info: Fall on thinners TECHNIQUE: Imaging protocol: Computed tomography of the head without contrast. Radiation optimization: All CT scans at this facility use at least one of these dose optimization techniques: automated exposure control; mA and/or kV adjustment per patient size (includes targeted exams where dose is matched to clinical indication); or iterative reconstruction. COMPARISON: CT head wo con* [id number] 03/14/2024 9:10 PM RADIATION DOSE METRICS: Total DLP (mGy-cm): 1171.38 FINDINGS: Brain: Atrophic or involutional change for age indicates volume loss. Periventricular and subcortical deep white matter low attenuation bilaterally consistent with chronic small-vessel disease change, along with small old/chronic lacunar infarct left basal ganglia. Findings are unchanged with prior exam. No intracranial hemorrhage or hematoma is seen. No mass effect or shift of midline structures. Cerebral ventricles: Mild ventricular prominence with atrophy. Paranasal sinuses: Visualized sinuses are unremarkable. No fluid levels. Mastoid air cells: Visualized mastoid air cells are well aerated. Bones: Bone windows of the skull show no acute abnormality. Soft tissues: Unremarkable. CT/CT head wo con* [id number] IMPRESSION: No acute intracranial abnormality. Stable appearance with previous exam.
--- NOTE | 2024-05-17 16:26 | CTR_ITS ---
PROCEDURE INFORMATION: Exam: CT Chest With Contrast; Diagnostic Exam date and time: 05/17/2024 6:02 PM Age: 88 years old Clinical indication: Pain and injury or trauma; Abdominal wall; Abdominal pain; Right; Blunt trauma (contusions or hematomas); Chest wall pain; Prior surgery; Surgery date: 6+ months; Surgery type: Coronary stents. Hernia repair. Hysterectomy. Lt mastectomy; Patient HX: C/O persistent RT sided pain since a fall on 05/14/2024. Contusions to RT lower posterior chest wall and RT flank. Anticoagulated. ; Additional info: Fall on thinners C/O right side bruising and pain TECHNIQUE: Imaging protocol: Diagnostic computed tomography of the chest with contrast. Radiation optimization: All CT scans at this facility use at least one of these dose optimization techniques: automated exposure control; mA and/or kV adjustment per patient size (includes targeted exams where dose is matched to clinical indication); or iterative reconstruction. Contrast material: OMNI 350; Contrast volume: 100 ml; Contrast route: INTRAVENOUS (IV); COMPARISON: [place] [id number] 03/14/2024 9:13 PM RADIATION DOSE METRICS: Total DLP (mGy-cm): 1977.08 FINDINGS: Lungs: Emphysematous changes. Bibasilar atelectasis versus minimal infiltrate. Pleural spaces: Unremarkable. No pneumothorax. No pleural effusion. Heart: Unremarkable. No cardiomegaly. No pericardial effusion. Coronary arteries: Coronary artery atherosclerotic calcification Lymph nodes: Unremarkable. No enlarged lymph nodes. Vasculature: Unremarkable. No aortic aneurysm. Diaphragm: Large hiatal hernia the atlantal axial malrotation appears chronic. Bones/joints: Unremarkable. No acute fracture. Soft tissues: Unremarkable. PROCEDURE INFORMATION: Exam: CT Abdomen And Pelvis With Contrast Exam date and time: 05/17/2024 6:02 PM Age: 88 years old Clinical indication: Pain and injury or trauma; Abdominal wall; Abdominal pain; Right; Blunt trauma (contusions or hematomas); Chest wall pain; Prior surgery; Surgery date: 6+ months; Surgery type: Coronary stents. Hernia repair. Hysterectomy. Lt mastectomy; Patient HX: C/O persistent RT sided pain since a fall on 05/14/2024. Contusions to RT lower posterior chest wall and RT flank. Anticoagulated. ; Additional info: Fall on thinners C/O right side bruising and pain TECHNIQUE: Imaging protocol: Computed tomography of the abdomen and pelvis with contrast. Radiation optimization: All CT scans at this facility use at least one of these dose optimization techniques: automated exposure control; mA and/or kV adjustment per patient size (includes targeted exams where dose is matched to clinical indication); or iterative reconstruction. Contrast material: OMNI 350; Contrast volume: 100 ml; Contrast route: INTRAVENOUS (IV); COMPARISON: [place] [id number] 03/14/2024 9:13 PM RADIATION DOSE METRICS: Total DLP (mGy-cm): 1977.08 FINDINGS: Liver: Hepatic steatosis. Gallbladder and biliary ducts: Cholelithiasis with mild gallbladder distension, consider correlation with ultrasound. Pancreas: Normal. No ductal dilation. Spleen: Normal. No splenomegaly. Adrenal glands: Normal. No mass. Kidneys and ureters: Normal. No hydronephrosis. Stomach and bowel: Moderate constipation. Diverticulosis without diverticulitis. Appendix: No evidence of appendicitis. Intraperitoneal space: Unremarkable. No free air. No significant fluid collection. Vasculature: Celiac, superior mesenteric and bilateral renal artery atherosclerotic calcifications. Lymph nodes: Unremarkable. No enlarged lymph nodes. Urinary bladder: Unremarkable as visualized. Reproductive: Unremarkable as visualized. Bones/joints: Unremarkable. No acute fracture. Soft tissues: Bilateral mental fat containing inguinal hernias. Right iliopsoas muscle chronic appearing calcification appears benign. CT/CT chest abdpel w/*[id number] IMPRESSION: 1. Negative for traumatic injury to the chest. 2. Coronary artery atherosclerotic calcification 3. Large hiatal hernia the atlantal axial malrotation appears chronic. 4. Emphysematous changes. 5. Bibasilar atelectasis versus minimal infiltrate. IMPRESSION: 1. Negative for traumatic injury to the abdomen or pelvis. 2. Cholelithiasis with mild gallbladder distension, consider correlation with ultrasound. 3. Moderate constipation. 4. Diverticulosis without diverticulitis. 5. Bilateral mental fat containing inguinal hernias. 6. Right iliopsoas muscle chronic appearing calcification appears benign. 7. Hepatic steatosis. 8. Celiac, superior mesenteric and bilateral renal artery atherosclerotic calcifications.
--- NOTE | 2024-05-17 16:31 | ED_ITS ---
Documented by User: Gentry Zimmer 05/17/24 17:54 HPI - Fall 2 General: Chief Complaint: Fall Stated Complaint: fall /bruising Time Seen by Provider: 05/17/24 15:49 History of Present Illness: 88-year-old female presents emergency de partment chief complaint of fall at sustained on the first the patient's daughter is visiting from the [place] to the area the patient presented to the urgent care for further assessment management she was noted to have some bruising located to the left lateral flank and left lower chest patient is chronically on Plavix patient denies any bowel movement changes reports no dysuria urinary frequency or hematuria patient's is unclear without the patient struck her head or having loss of conscious during the incident. The the patient presents to the ER for further assessment and management. Associated symptoms-after fall: Reports abdominal pain and chest pain; Denies headache(s) Related Data Home Medications Medication Instructions Recorded Confirmed lovastatin 40 mg tablet 40 mg PO DAILY 03/16/24 05/17/24 metformin 500 mg tablet 500 mg PO BID 03/16/24 05/17/24 vitamin B complex 1 tab PO DAILY 03/16/24 05/17/24 amlodipine 5 mg tablet 5 mg PO BID 05/17/24 05/17/24 aspirin 81 mg tablet,delayed 81 mg PO DAILY 05/17/24 05/17/24 release (Francoise Low Dose Aspirin) glimepiride 1 mg tablet 1 mg PO BID 05/17/24 05/17/24 Previous Rx's Medication Instructions Recorded clopidogrel 75 mg tablet 75 mg PO DAILY #30 tabs 12/27/23 gabapentin 300 mg capsule See Rx Instructions .Route 01/05/24 .COMPLEX #270 caps ferrous sulfate 324 mg (65 mg 324 mg PO DAILY 30 days #30 tabs 01/18/24 iron) tablet,delayed release metoprolol tartrate 50 mg tablet 25 mg (1/2 x 50 mg) PO BID #60 tabs 03/18/24 Allergies Allergy/AdvReac Type Severity Reaction Status Date / Time propoxyphene Allergy Severe Unknown Verified 05/17/24 15:06 [From Darin] Review of Systems 2 General: Reports: 10 or more systems reviewed and unremarkable except in HPI and below Const: Denies: fever(s), chills, fatigue or malaise Eyes: Denies: change in vision or blurry vision Card: Reports: chest pain; Denies: palpitations Resp: Denies: dyspnea or productive cough GI: Reports: abdominal pain; Denies: nausea or vomiting : Denies: flank pain Musc: Denies: extremity pain or extremity swelling Skin/Breast: Reports: rash and other (Moderate bruising located to the right lateral flank right lower chest and ); Denies: pruritus Neuro: Denies: headache(s) Psych: Denies: anxiety or depression Mumtaz/Lymph: Denies: easy bleeding All/Imm: Denies: urticaria, throat swelling or facial swelling PFSH ED 2 PFSH: Medical History History of echocardiogram 2017 EF 60%, grade I/IV diastolic dysfunction CVA (cerebral vascular accident) 2017 left basal ganglia Carotid artery disease CTA neck 2017 62% stenosis at origin and 70% stenosis proximal left cervical internal carotid artery, 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 and left distal vertebral artery, nonstenotic atherosclerotic plaque of the origin of the right cervical internal carotid artery Macular degeneration Peripheral vascular disease Breast cancer Hypertension Hyperlipidemia Diabetes mellitus, type II Osteoarthritis of right knee Osteoarthritis of left knee Surgical History S/P peripheral artery angioplasty with stent placement left leg 2010 History of left mastectomy History of hernia repair History of hysterectomy Family History Mother Stroke Brain tumor Social History Smoking and tobacco/nicotine status: never used tobacco/nicotine 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 Physical Exam 2 Const: COMMON NORMALS: no acute distress, patient oriented x3 and healthy appearing HENMT: COMMON NORMALS: normocephalic and atraumatic HEAD & SCALP: n ormocephalic and atraumatic Eye: COMMON NORMALS: Equal, round and reactive pupils present and EOMs intact bilaterally PUPIL: Yes Equal, round and reactive pupils present Neck/C-Spine: COMMON NORMALS: full ROM, supple and no JVD Lymph: LYMPHATIC: no lymphadenopathy noted Chest: COMMONS NORMALS: normal inspection of the chest and normal palpation of entire chest wall Resp: COMMON NORMALS: normal respiratory effort, No retractions and clear to auscultation bilaterally EFFORT & INSPECTION: Yes able to speak in complete sentences and Yes symmetric chest movement AUSCULTATION: clear to auscultation bilaterally Cardio: COMMON NORMALS: no JVD, regular rate and regular rhythm RATE: r egular rate RHYTHM: regular rhythm GI: COMMON NORMALS: Normal to inspection, nondistended, normoactive bowel sounds present, Soft to palpation and non-tender INSPECTION: Yes normal to inspection PALPATION: Yes Soft to palpation : COMMON NORMALS: Yes no CVA tenderness BLADDER/KIDNEY EXAM: Yes no CVA tenderness Back/Pelvis: COMMON NORMALS: no CVA tenderness Extremity: COMMON NORMALS: normal to inspection and full ROM Neuro: COMMON NORMALS: patient oriented x3, CN's II-XII intact bilaterally, moves all extremities and no focal motor deficits Psych: COMMON NORMALS: mental status grossly normal, Normal thought process present, cooperative and normal affect THOUGHT PROCESS: Normal thought process present Skin: COMMON NORMALS: no rashes or lesions noted; negative for no mottling (Moderate bruising appreciated to right lateral flank right lower chest no o) GENERAL SKIN EXAM: no rashes or lesions noted Course 2 Vital Signs: Vital signs: Vital Signs Temperature 97.9 F 05/17/24 15:43 Pulse Rate 94 05/17/24 19:20 Respiratory Rate 18 05/17/24 19:20 Blood Pressure 184/76 05/17/24 19:20 Pulse Oximetry 97 05/17/24 19:20 Oxygen Delivery Me thod Room Air 05/17/24 19:20 MDM - Fall Medical Decision Making No midline back pain appreciated due to patient's concerns will be obtaining IV basic lab work imaging type and screen to be obtained as well as CT imaging the chest abdomen pelvis as well as a chest x-ray will continue to follow. There are concerns of intra-abdominal or intrathoracic injury especially the mild bruising externally will continue to follow. Currently waiting on patient to get repeat IV access for her CT imaging labs are still pending as well as CT images patient refused a chest x-ray patient is currently hemodynamically stable this patient will be signed out to my colleague Dr. Sheehan at 1800. Lab Data 05/17/24 17:25 05/17/24 17:25 Radiology Impressions Chest/Abdomen/Pelvis CT 05/17/24 16:26 IMPRESSION: 1. Negative for traumatic injury to the chest. 2. Coronary artery atherosclerotic calcification 3. Large hiatal hernia the atlantal axial malrotation appears chronic. 4. Emphysematous changes. 5. Bibasilar atelectasis versus minimal infiltrate. IMPRESSION: 1. Negative for traumatic injury to the abdomen or pelvis. 2. Cholelithiasis with mild gallbladder distension, consider correlation with ultrasound. 3. Moderate constipation. 4. Diverticulosis without diverticulitis. 5. Bilateral mental fat containing inguinal hernias. 6. Right iliopsoas muscle chronic appearing calcification appears benign. 7. Hepatic steatosis. 8. Celiac, superior mesenteric and bilateral renal artery atherosclerotic calcifications. Head CT 05/17/24 16:26 IMPRESSION: No acute intracranial abnormality. Stable appearance with previous exam. Laboratory Results WBC 4.88 10^3/uL (3.29-11.43) 05/17/24 17:25 RBC 3.83 10^6/uL (3.85-5.65) L 05/17/24 17:25 Hgb 11.00 g/dL (11.27-16.99) L 05/17/24 17:25 Hct 34.1 % (36-47) L 05/17/24 17:25 MCV 89.0 fl (85-98) 05/17/24 17:25 MCH 28.7 pg (27-33) 05/17/24 17:25 MCHC 32.3 g/dL (30-55) 05/17/24 17:25 RDW 13.5 % (12.1-15.1) 05/17/24 17:25 Plt Count 199 10^3/cmm (157-399) 05/17/24 17:25 MPV 9.8 fL (7.4-10.4) 05/17/24 17:25 Neut % (Auto) 58.6 % 05/17/24 17:25 Lymph % (Auto) 26.6 % 05/17/24 17:25 [place] % (Auto) 11.1 % 05/17/24 17:25 Eos % (Auto) 2.3 % 05/17/24 17:25 Baso % (Auto) 1.0 % 05/17/24 17:25 Neut # (Auto) 2.86 10^3/uL (1.8-7.7) 05/17/24 17:25 Lymph # (Auto) 1.3 10^3/uL (0.8-4.8) 05/17/24 17:25 [place] # (Auto) 0.5 10^3/uL (0.2-0.9) 05/17/24 17:25 Eos # (Auto) 0.1 10^3/uL (0.0-0.8) 05/17/24 17:25 Baso # (Auto) 0.1 10^3/uL (0.0-0.1) 05/17/24 17:25 Nucleated RBC % (auto) 0 % 05/17/24 17: Nucleated RBCs # 0.0 /100WBC 05/17/24 17:25 Sodium 141 mmol/L (136-145) 05/17/24 17:25 Potassium 3.8 mmol/L (3.5-5.1) 05/17/24 17:25 Chloride 105 mmol/L (98-107) 05/17/24 17:25 Carbon Dioxide 26 mmol/L (22-29) 05/17/24 17:25 Anion Gap 13.8 (5-19) 05/17/24 17:25 BUN 15 mg/dL (8-23) 05/17/24 17:25 Creatinine 0.7 mg/dL (0.5-0.9) 05/17/24 17:25 GFR Calculation Not Reportable 05/17/24 17:25 Glucose 174 mg/dL (65-115) H 05/17/24 17:25 Calculated Osmolality 297 mOsm/kg (285-295) H 05/17/24 17:25 Calcium 9.7 mg/dL (8.5-10.5) 05/17/24 17:25 Total Bilirubin 0.7 mg/dL (0.15-1.2) 05/17/24 17:25 AST 21 U/L (0-32) 05/17/24 17:25 ALT 16 U/L (0-33) 05/17/24 17:25 Alkaline Phosphatase 90 U/L (35-105) 05/17/24 17:25 Total Protein 6.9 g/dL (6.6-8.7) 05/17/24 17:25 Albumin 3.6 g/dL (3.5-5.2) 05/17/24 17:25 Globulin 3.3 g/dL (1.3-4.6) 05/17/24 17:25 Urine Color Yellow (Yellow) 05/17/24 18:48 Urine Appearance Clear (CLEAR) 05/17/24 18:48 Urine pH 7.5 (5-7) 05/17/24 18:48 Ur Specific [place] 1.018 (1.005-1.030) 05/17/24 18:48 Urine Protein Trace (Negative) A 05/17/24 18:48 Urine Glucose (UA) Negative (Normal) 05/17/24 18:48 Urine Ketones Negative (Negative) 05/17/24 18:48 Urine Blood 1+ (Negative) A 05/17/24 18:48 Urine Nitrate Negative (Negative) 05/17/24 18:48 Urine Bilirubin Negative (Negative) 05/17/24 18:48 Urine Urobilinogen 0.2 mg/dL (Negative) 05/17/24 18:48 Ur Leukocyte Esterase Negative (Negative) 05/17/24 18:48 Urine RBC 6-10 /hpf (0-2) 05/17/24 18:48 Urine WBC 0-5 /hpf (0-5) 05/17/24 18:48 Ur Squamous Epith Cells 0-5 /hpf (0-5) 05/17/24 18:48 Amorphous Sediment Not Reportable 05/17/24 18:48 Urine Bacteria None seen /hpf (NONE) 05/17/24 18:48 Hyaline Casts 0.40 /lpf 05/17/24 18:48 Blood Type A Positive 05/17/24 17:25 Rho(D) Type Rh positive 05/17/24 17:25 Antibody Screen Negative 05/17/24 17:25 All radiology interpretation(s) finalized by discharge Discharge Plan Discharge Patient Disposition: Home Clinical Impression: Fall Qualifiers: Encounter type: initial encounter Qualified Code(s): W19.XXXA - Unspecified fall, initial encounter Anemia Qualifiers: Anemia type: unspecified type Qualified Code(s): D64.9 - Anemia, unspecified Hematuria Qualifiers: Hematuria type: other microscopic Qualified Code(s): R31.29 - Other microscopic hematuria Hypertension Qualifiers: Hypertension type: primary hypertension Qualified Code(s): I10 - Essential (primary) hypertension Condition: Stable Prescriptions: No Action clopidogrel 75 mg tablet 75 mg PO DAILY Qty: 30 11RF Hold Instructions: Resume on 01/11/23. hold until PCP follow up gabapentin 300 mg capsule See Rx Instructions .ROUTE .COMPLEX Qty: 270 3RF Dose Instruction: TAKE 1 CAPSULE BY MOUTH IN THE MORNING AND 2 IN THE EVENING Rx Instructions: TAKE 1 CAPSULE BY MOUTH IN THE MORNING AND 2 IN THE EVENING ferrous sulfate 324 mg (65 mg iron) tablet,delayed release (DR/EC) 324 mg PO DAILY 30 Days Qty: 30 5RF amlodipine 5 mg tablet 5 mg PO BID aspirin [Francoise Low Dose Aspirin] 81 mg Tablet,Delayed Release (Dr/Ec) 81 mg PO DAILY glimepiride 1 mg tablet 1 mg PO BID vitamin B complex Tablet 1 tab PO DAILY metformin 500 mg tablet 500 mg PO BID lovastatin 40 mg tablet 40 mg PO DAILY metoprolol tartrate 50 mg tablet 25 mg PO BID Qty: 60 11RF Discharge Orders: Discharge ED (Routine); Ordered 05/17/24 Ordered By: Akhil Sheehan Referrals: Lb Akers MD [Primary Care Provider] - Discharge Diet: Advance as tolerated Discharge Activity: Increase activity as tolerated Patient Instructions: Opioid Safety, Pain Management Activity Restrictions/Additional Instructions: Please follow-up with your primary care physician for further evaluation of microscopic hematuria, anemia, high blood pressure, and several incidental findings on your CT scan. Please return to the emergency department with any new or worsening symptoms. Coding Level of Care Code ED Breaker Tender for Chg Fwd Documented by User: Akhil Sheehan DO 05/17/24 19:46 HPI - Fall 2 General: Chief Complaint: Fall Stated Complaint: fall /bruising Time Seen by Provider: 05/17/24 15:49 History of Present Illness: 88-year-old female presents emergency de partment chief complaint of fall at sustained on the first the patient's daughter is visiting from the to the area the patient presented to the urgent care for further assessment management she was noted to have some bruising located to the left lateral flank and left lower chest patient is chronically on Plavix patient denies any bowel movement changes reports no dysuria urinary frequency or hematuria patient's is unclear without the patient struck her head or having loss of conscious during the incident. The the patient presents to the ER for further assessment and management. Related Data Home Medications Medication Instructions Recorded Confirmed lovastatin 40 mg tablet 40 mg PO DAILY 03/16/24 05/17/24 metformin 500 mg tablet 500 mg PO BID 03/16/24 05/17/24 vitamin B complex 1 tab PO DAILY 03/16/24 05/17/24 amlodipine 5 mg tablet 5 mg PO BID 05/17/24 05/17/24 aspirin 81 mg tablet,delayed 81 mg PO DAILY 05/17/24 05/17/24 release (Francoise Low Dose Aspirin) glimepiride 1 mg tablet 1 mg PO BID 05/17/24 05/17/24 Previous Rx's Medication Instructions Recorded clopidogrel 75 mg tablet 75 mg PO DAILY #30 tabs 12/27/23 gabapentin 300 mg capsule See Rx Instructions .Route 01/05/24 .COMPLEX #270 caps ferrous sulfate 324 mg (65 mg 324 mg PO DAILY 30 days #30 tabs 01/18/24 iron) tablet,delayed release metoprolol tartrate 50 mg tablet 25 mg (1/2 x 50 mg) PO BID #60 tabs 03/18/24 Allergies Allergy/AdvReac Type Severity Reaction Status Date / Time propoxyphene Allergy Severe Unknown Verified 05/17/24 15:06 [From Darin] [facility] ED 2 [facility]: Medical History History of echocardiogram 2017 EF 60%, grade I/IV diastolic dysfunction CVA (cerebral vascular accident) 2017 left basal ganglia Carotid artery disease CTA neck 2017 62% stenosis at origin and 70% stenosis proximal left cervical internal carotid artery, 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 and left distal vertebral artery, nonstenotic atherosclerotic plaque of the origin of the right cervical internal carotid artery Macular degeneration Peripheral vascular disease Breast cancer Hypertension Hyperlipidemia Diabetes mellitus, type II Osteoarthritis of right knee Osteoarthritis of left knee Surgical History S/P peripheral artery angioplasty with stent placement left leg 2011 History of left mastectomy History of hernia repair History of hysterectomy Family History Mother Stroke Brain tumor Social History Smoking and tobacco/nicotine status: never used tobacco/nicotine 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 There are concerns of intra-abdominal or intrathoracic injury especially the mild bruising externally will continue to follow. Currently waiting on patient to get repeat IV access for her CT imaging labs are still pending as well as CT images patient refused a chest x-ray patient is currently hemodynamically stable this patient will be signed out to my colleague Dr. Sheehan at 1800. Care assumed from Dr. Zimmer with labs and imaging pending. Patient did have anemia and microscopic hematuria on her laboratory evaluation. She also has signs of hyperglycemia and dehydration. Encouraged the patient to increase her oral intake of fluids. Patient to follow-up with her primary care physician on hypertension control, anemia, microscopic hematuria, as well as several findings on her CT scan that were incidental in nature. She did not show any signs of intracranial hemorrhage, intra-abdominal trauma, or bony fracture. Discussed these results with the patient and her family. They were all in agreement with discharge home with outpatient follow-up. Return precautions were discussed and the patient was discharged home in good condition Lab Data 05/17/24 17:25 05/17/24 17:25 Radiology Impressions Chest/Abdomen/Pelvis CT 05/17/24 16:26 IMPRESSION: 1. Negative for traumatic injury to the chest. 2. Coronary artery atherosclerotic calcification 3. Large hiatal hernia the atlantal axial malrotation appears chronic. 4. Emphysematous changes. 5. Bibasilar atelectasis versus minimal infiltrate. IMPRESSION: 1. Negative for traumatic injury to the abdomen or pelvis. 2. Cholelithiasis with mild gallbladder distension, consider correlation with ultrasound. 3. Moderate constipation. 4. Diverticulosis without diverticulitis. 5. Bilateral mental fat containing inguinal hernias. 6. Right iliopsoas muscle chronic appearing calcification appears benign. 7. Hepatic steatosis. 8. Celiac, superior mesenteric and bilateral renal artery atherosclerotic calcifications. Head CT 05/17/24 16:26 IMPRESSION: No acute intracranial abnormality. Stable appearance with previous exam. Laboratory Results WBC 4.88 10^3/uL (3.29-11.43) 05/17/24 17: RBC 3.83 10^6/uL (3.85-5.65) L 05/17/24 17:25 Hgb 11.00 g/dL (11.27-16.99) L 05/17/24 17:25 Hct 34.1 % (36-47) L 05/17/24 17: MCV 89.0 fl (85-98) 05/17/24 17:25 MCH 28.7 pg (27-33) 05/17/24 17: MCHC 32.3 g/dL (30-55) 05/17/24 17: RDW 13.5 % (12.1-15.1) 05/17/24 17:25 Plt Count 199 10^3/cmm (157-399) 05/17/24 17: MPV 9.8 fL (7.4-10.4) 05/17/24 17:25 Neut % (Auto) 58.6 % 05/17/24 17:25 Lymph % (Auto) 26.6 % 05/17/24 17:25 [place] % (Auto) 11.1 % 05/17/24 17: Eos % (Auto) 2.3 % 05/17/24 17:25 Baso % (Auto) 1.0 % 05/17/24 17: Neut # (Auto) 2.86 10^3/uL (1.8-7.7) 05/17/24 17: Lymph # (Auto) 1.3 10^3/uL (0.8-4.8) 05/17/24 17:25 [place] # (Auto) 0.5 10^3/uL (0.2-0.9) 05/17/24 17:25 Eos # (Auto) 0.1 10^3/uL (0.0-0.8) 05/17/24 17:25 Baso # (Auto) 0.1 10^3/uL (0.0-0.1) 05/17/24 17:25 Nucleated RBC % (auto) 0 % 05/17/24 17:25 Nucleated RBCs # 0.0 /100WBC 05/17/24 17:25 Sodium 141 mmol/L (136-145) 05/17/24 17:25 Potassium 3.8 mmol/L (3.5-5.1) 05/17/24 17:25 Chloride 105 mmol/L (98-107) 05/17/24 17:25 Carbon Dioxide 26 mmol/L (22-29) 05/17/24 17:25 Anion Gap 13.8 (5-19) 05/17/24 17:25 BUN 15 mg/dL (8-23) 05/17/24 17:25 Creatinine 0.7 mg/dL (0.5-0.9) 05/17/24 17:25 GFR Calculation Not Reportable 05/17/24 17:25 Glucose 174 mg/dL (65-115) H 05/17/24 17:25 Calculated Osmolality 297 mOsm/kg (285-295) H 05/17/24 17:25 Calcium 9.7 mg/dL (8.5-10.5) 05/17/24 17:25 Total Bilirubin 0.7 mg/dL (0.15-1.2) 05/17/24 17:25 AST 21 U/L (0-32) 05/17/24 17:25 ALT 16 U/L (0-33) 05/17/24 17:25 Alkaline Phosphatase 90 U/L (35-105) 05/17/24 17:25 Total Protein 6.9 g/dL (6.6-8.7) 05/17/24 17:25 Albumin 3.6 g/dL (3.5-5.2) 05/17/24 17:25 Globulin 3.3 g/dL (1.3-4.6) 05/17/24 17:25 Urine Color Yellow (Yellow) 05/17/24 18:48 Urine Appearance Clear (CLEAR) 05/17/24 18:48 Urine pH 7.5 (5-7) 05/17/24 18:48 Ur Specific [place] 1.018 (1.005-1.030) 05/17/24 18:48 Urine Protein Trace (Negative) A 05/17/24 18:48 Urine Glucose (UA) Negative (Normal) 05/17/24 18:48 Urine Ketones Negative (Negative) 05/17/24 18:48 Urine Blood 1+ (Negative) A 05/17/24 18:48 Urine Nitrate Negative (Negative) 05/17/24 18:48 Urine Bilirubin Negative (Negative) 05/17/24 18:48 Urine Urobilinogen 0.2 mg/dL (Negative) 05/17/24 18:48 Ur Leukocyte Esterase Negative (Negative) 05/17/24 18:48 Urine RBC 6-10 /hpf (0-2) 05/17/24 18:48 Urine WBC 0-5 /hpf (0-5) 05/17/24 18:48 Ur Squamous Epith Cells 0-5 /hpf (0-5) 05/17/24 18:48 Amorphous Sediment Not Reportable 05/17/24 18:48 Urine Bacteria None seen /hpf (NONE) 05/17/24 18:48 Hyaline Casts 0.40 /lpf 05/17/24 18:48 Blood Type A Positive 05/17/24 17:25 Rho(D) Type Rh positive 05/17/24 17:25 Antibody Screen Negative 05/17/24 17:25 Discharge Plan Discharge Patient Disposition: Home Clinical Impression: Fall Qualifiers: Encounter type: initial encounter Qualified Code(s): W19.XXXA - Unspecified fall, initial encounter Anemia Qualifiers: Anemia type: unspecified type Qualified Code(s): D64.9 - Anemia, unspecified Hematuria Qualifiers: Hematuria type: other microscopic Qualified Code(s): R31.29 - Other microscopic hematuria Hypertension Qualifiers: Hypertension type: primary hypertension Qualified Code(s): I10 - Essential (primary) hypertension Condition: Stable Prescriptions: No Action clopidogrel 75 mg tablet 75 mg PO DAILY Qty: 30 11RF Hold Instructions: Resume on 01/11/23. hold until PCP follow up gabapentin 300 mg capsule See Rx Instructions .ROUTE .COMPLEX Qty: 270 3RF Dose Instruction: TAKE 1 CAPSULE BY MOUTH IN THE MORNING AND 2 IN THE EVENING Rx Instructions: TAKE 1 CAPSULE BY MOUTH IN THE MORNING AND 2 IN THE EVENING ferrous sulfate 324 mg (65 mg iron) tablet,delayed release (DR/EC) 324 mg PO DAILY 30 Days Qty: 30 5RF amlodipine 5 mg tablet 5 mg PO BID aspirin [Francoise Low Dose Aspirin] 81 mg Tablet,Delayed Release (Dr/Ec) 81 mg PO DAILY glimepiride 1 mg tablet 1 mg PO BID vitamin B complex Tablet 1 tab PO DAILY metformin 500 mg tablet 500 mg PO BID lovastatin 40 mg tablet 40 mg PO DAILY metoprolol tartrate 50 mg tablet 25 mg PO BID Qty: 60 11RF Discharge Orders: Discharge ED (Routine); Ordered 05/17/24 Ordered By: Akhil Sheehan Referrals: Lb Akers MD [Primary Care Provider] - Discharge Diet: Advance as tolerated Discharge Activity: Increase activity as tolerated Patient Instructions: Opioid Safety, Pain Management Activity Restrictions/Additional Instructions: Please follow-up with your primary care physician for further evaluation of microscopic hematuria, anemia, high blood pressure, and several incidental findings on your CT scan. Please return to the emergency department with any new or worsening symptoms. Coding Level of Care Code ED Breaker Tender for Zeferino De
[2024-05-17 17:58] LABS: Basophils # 0.1 10^3/uL (0.0-0.1); Eosinophils # 0.1 10^3/uL (0.0-0.8); Eosinophils % 2.3 %; Hematocrit 34.1 % (36-47); Lymphocytes # 1.3 10^3/uL (0.8-4.8); Lymphocytes % 26.6 %; Mean Corpuscular HGB Conc 32.3 g/dL (30-55); Mean Corpuscular Hemoglobin 28.7 pg (27-33); Mean Platelet Volume 9.8 fL (7.4-10.4); Monocytes # 0.5 10^3/uL (0.2-0.9); Monocytes % 11.1 %; Neutrophils # 2.86 10^3/uL (1.8-7.7); Neutrophils % 58.6 %; Nucleated Red Blood Cells % 0 %; Platelet Count 199 10^3/cmm (157-399); Red Blood Count 3.83 10^6/uL (3.85-5.65); Red Cell Distribution Width 13.5 % (12.1-15.1); White Blood Count 4.88 10^3/uL (3.29-11.43)
[2024-05-17 18:04] LABS: Alanine Aminotransferase 16 U/L (0-33); Albumin Level 3.6 g/dL (3.5-5.2); Alkaline Phosphatase 90 U/L (35-105); Anion Gap 13.8 (5-19); Aspartate Amino Transferase 21 U/L (0-32); Blood Urea Nitrogen 15 mg/dL (8-23); Calcium 9.7 mg/dL (8.5-10.5); Carbon Dioxide 26 mmol/L (22-29); Chloride 105 mmol/L (98-107); Creatinine Clr Calc Pharmacy 49.2553; Globulin 3.3 g/dL (1.3-4.6); Glucose 174 mg/dL (65-115); Osmolality Calculated 297 mOsm/kg (285-295); Potassium 3.8 mmol/L (3.5-5.1); Sodium 141 mmol/L (136-145); Total Bilirubin 0.7 mg/dL (0.15-1.2); Total Protein 6.9 g/dL (6.6-8.7)
[2024-05-17] MEDS: iohexol 350 mg/mL 500 mL Btl (per mL) IV (18:05)
[2024-05-17 18:54] LABS: Bilirubin Urine Negative (Negative); Blood Urine 1+ (Negative); Glucose Urine UA Negative (Normal); Ketones Urine Negative (Negative); Leukocyte Esterase Urine Negative (Negative); Nitrate Urine Negative (Negative); Protein Urine Trace (Negative); Specific Gravity, Urine 1.018 (1.005-1.030); Urine Appearance Clear (CLEAR); Urine Color Yellow (Yellow); Urobilinogen Urine 0.2 mg/dL (Negative); pH Urine 7.5 (5-7)
[2024-05-17 18:59] LABS: Add Urine Microscopic? YES; Bacteria Urine None Seen /hpf; Squamous Epithelial Cell Urine 0-5 /hpf (0-5); WBC Urine 0-5 /hpf (0-5)
[2024-05-17 19:20] VITALS: BP 184/76; PULSE 94; RESP 18; O2SAT 97
[2024-05-17 20:09] VITALS: BP 169/85; PULSE 95; RESP 16; O2SAT 94
== END 2024-05-17 20:11 | disposition home or self-care (01) ==
PROVIDERS: Emergency Medicine; Emergency Provider General Practice; PCP Family Medicine
DX: D64.9 Anemia, unspecified (principal); R31.29 Other microscopic hematuria; I10 Essential (primary) hypertension; W19.XXXA Unspecified fall, initial encounter; Z79.02 Long term (current) use of antithrombotics/antiplatelets; Z79.84 Long term (current) use of oral hypoglycemic drugs; Z86.73 Personal history of transient ischemic attack (TIA), and cerebral infarction without residual deficits; I25.10 Atherosclerotic heart disease of native coronary artery without angina pectoris; E78.5 Hyperlipidemia, unspecified; E11.9 Type 2 diabetes mellitus without complications; Z85.3 Personal history of malignant neoplasm of breast
CPT/HCPCS: 36415; 70450; 71260; 74177; 80053; 81001; 85025; 86850; 86900; 99285

== ENCOUNTER 2024-09-12 15:36 | Outpatient (CLI) | payer MEDICARE, OTHER, SELFPAY ==
--- NOTE | 2024-09-12 15:46 | XRR_ITS ---
PROCEDURE INFORMATION: Exam: XR Chest Exam date and time: 09/12/2024 3:52 PM Age: 89 years old Clinical indication: Cough TECHNIQUE: Imaging protocol: Radiologic exam of the chest. Views: 2 views. COMPARISON: CT chest abdpel w/*[id number] 05/17/2024 6:02 PM FINDINGS: Lungs: Hyperinflation. Mild bilateral lower lung atelectasis/scarring, less likely pneumonitis. Pleural spaces: Unremarkable. No pleural effusion. No pneumothorax. Heart/Mediastinum: Extremely large retrocardiac hiatal hernia. Vasculature: Severe atherosclerotic calcification of the thoracic aorta without enlargement. Bones/joints: Unremarkable. XR/XR chest 2V* [id number] IMPRESSION: 1. Mild bilateral lower lung atelectasis/scarring, less likely pneumonitis. 2. Extremely large retrocardiac hiatal hernia.
== END 2024-09-12 15:37 | disposition home or self-care (01) ==
LOC: RAD 15:41
PROVIDERS: PCP Family Medicine; Visit Provider Family Medicine
DX: R05.9 Cough, unspecified (principal); I10 Essential (primary) hypertension; E78.5 Hyperlipidemia, unspecified; E11.9 Type 2 diabetes mellitus without complications; R91.8 Other nonspecific abnormal finding of lung field; K44.9 Diaphragmatic hernia without obstruction or gangrene; I70.0 Atherosclerosis of aorta
CPT/HCPCS: 71046; 80053; 83036; 85025

== ENCOUNTER → 2025-01-08 10:22 | Outpatient (BNVA) | payer MEDICARE, OTHER, SELFPAY | PROVIDERS: PCP Family Medicine; Visit Provider Podiatrist Foot & Ankle Surgery | DX: E11.40 Type 2 diabetes mellitus with diabetic neuropathy, unspecified (principal); L60.3 Nail dystrophy; L84 Corns and callosities; I73.9 Peripheral vascular disease, unspecified; Z79.84 Long term (current) use of oral hypoglycemic drugs | CPT/HCPCS: 11055; 11721; 99203 ==

== ENCOUNTER 2025-01-29 13:03 | Outpatient (CLI) | payer MEDICARE, SELFPAY ==
--- NOTE | 2025-01-29 13:10 | MR_ITS ---
WS: [id number] MRI HEAD WITH CONTRAST WITH ATTENTION TO THE INTERNAL AUDITORY CANALS TECHNIQUE: Sagittal T1, T2 axial, T2 axial flair, axial susceptibility weighted imaging, axial diffusion weighted images, and coronal T2 images were obtained. Pre and post T1 axial and post T1 coronal images. ADC and FSPGR images. Post gadolinium images with attention to the internal auditory canals. Axial fiesta imaging. CLINICAL INFORMATION: BILATERAL HEARING LOSS COMPARISON: MRI 2017 FINDINGS: Some images degraded by motion Proximal 7th and 8th cranial nerves are normal in appearance. No evidence of enhancing IAC or CP angle mass. Normal trigeminal nerve root entry zones. No abnormal gadolinium enhancement. Normal dural venous sinuses. No hemosiderin on the susceptibility weighted images. Moderate small vessel changes with moderate parenchymal volume loss. Small vessel changes in the katie. 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 Wallerian degeneration LEFT midbrain. Normal vascular flow voids at the skull base. No extra-axial fluid collections. Paranasal sinuses and mastoid air cells are well aerated. MR/MR iac's wo/w con* [id number] IMPRESSION: Some images degraded by motion 1. No evidence of restricted diffusion to suggest acute ischemia. 2. Moderate small vessel changes with moderate parenchymal volume loss progres sed compared to previous. Small vessel changes in the katie. 3. Wallerian degeneration LEFT midbrain. 4. 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 5. No hemosiderin. 6. Proximal 7th and 8th cranial nerves are normal. No evidence of enhancing IA C or CP angle mass.
[2025-01-29] MEDS: gadobenate dimeglumine 20 mL vial IV (14:09)
== END 2025-01-29 13:04 | disposition home or self-care (01) ==
LOC: RAD 13:05
PROVIDERS: PCP Family Medicine; Visit Provider Specialist
DX: H90.3 Sensorineural hearing loss, bilateral (principal); I67.82 Cerebral ischemia; G31.89 Other specified degenerative diseases of nervous system; R90.82 White matter disease, unspecified; I63.89 Other cerebral infarction
CPT/HCPCS: 70553

== ENCOUNTER → 2025-03-12 10:23 | Outpatient (BNVA) | payer MEDICARE, OTHER, SELFPAY | PROVIDERS: PCP Family Medicine; Visit Provider Podiatrist Foot & Ankle Surgery | DX: E11.40 Type 2 diabetes mellitus with diabetic neuropathy, unspecified (principal); L60.3 Nail dystrophy; L84 Corns and callosities; I73.9 Peripheral vascular disease, unspecified; Z79.84 Long term (current) use of oral hypoglycemic drugs | CPT/HCPCS: 11056; 11721 ==

== ENCOUNTER 2025-03-23 07:34 | Inpatient (IN) | payer MEDICARE, OTHER, SELFPAY ==
[2025-03-23] VITALS (24 sets, daily range): BP systolic 111–148; BP diastolic 44–95; PULSE 65–86; RESP 16–18; TEMP 36.6–37.3; O2SAT 84–99; BMI 30.7
--- NOTE | 2025-03-23 07:35 | XRR_ITS ---
PROCEDURE INFORMATION: Exam: XR Chest Exam date and time: 03/23/2025 7:57 AM Age: 89 years old Clinical indication: Cough and dyspnea; Additional info: Dyspnea/cough TECHNIQUE: Imaging protocol: Radiologic exam of the chest. Views: 1 view. COMPARISON: CR XR chest 2V* [id number] 09/12/2024 3:52 PM FINDINGS: Lungs: There is dense left basilar consolidation and atelectasis. Pulmonary vascularity is within normal limits. Mild right basilar atelectasis. Pleural spaces: There is a left pleural effusion. Small right pleural effusion. There is no evidence of pneumothorax. Heart/Mediastinum: The heart is enlarged. Large hiatal hernia. Bones/joints: No acute abnormality. XR/XR chest 1V portable [id number] IMPRESSION: There is dense left basilar consolidation and atelectasis. There is a left pleural effusion.
--- OUTSIDE RECORDS SUMMARY | 2025-03-23 07:40 | XMS_ITS | Encounter Summary ---
Author Organization [facility] Address [address] [facility] Attn: Epic Prelude ADT MARÍA DIAS SEBASTIEN [address] Care Team Providers Care Tactical Intelligence Officer Name Role Phone Unavailable Primary Care Provider Unavailabl e Encounter Details Date Type Department Care Team (Late st Contact Info) Description 12/28/2001 Outpatient Historical Efren Kohler MD [address] [place] [phone] Social History Tobacco Use Types Packs/Day Years Used Date Smoking Tobacco: Never Assessed Comments Unknown Sex and Gender Information Value Date Recorded Sex Assigned at Not on file 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
--- OUTSIDE RECORDS SUMMARY | 2025-03-23 07:40 | XMS_ITS | Encounter Summary ---
Author Organization [facility] Address [address] [place] [address] Care Team Providers Care Packing Attendant Name Role Phone Unavailable Primary Care Provider Unavailabl e Encounter Details Date Type Department Care Team (Latest Contact Info) Description 11/11/2004 Outpatient Historical [facility] [address] [phone] Pao Urbano MD [address] [place] [phone] Pain in limb (Primary Dx) Social History Tobacco Use Types Packs/Day Years Used Date Smoking Tobacco: Never Assessed Comments Unknown Sex and Gender Information Value Date Recorded Sex Assigned at Not on file 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
--- OUTSIDE RECORDS SUMMARY | 2025-03-23 07:40 | XMS_ITS | Encounter Summary ---
Author Organization [facility] Address [address] [place] [address] Care Team Providers Care Bolt Man Name Role Phone Unavailable Primary Care Provider Unavailabl e Encounter Details Date Type Department Care Team (Late st Contact Info) Description 12/28/2001 Outpatient Historical [facility] [address] [facility] [address] [place] [address] Deanna Michelle MD NO ADDRESS ON FILE LUMP OR MASS IN BREAST (Primary Dx) Social History Tobacco Use Types Packs/Day Years Used Date Smoking Tobacco: Never Assessed Comments Unknown Sex and Gender Information Value Date Recorded Sex Assigned at Not on file 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
--- OUTSIDE RECORDS SUMMARY | 2025-03-23 07:40 | XMS_ITS | Encounter Summary ---
Author Organization [facility] Address [address] [place] [address] Care Team Providers Care Diesel Inspector Name Role Phone Unavailable Primary Care Provider Unavailabl e Encounter Details Date Type Department Care Team (Latest Contact Info) Description 06/30/2004 Outpatient Historical [facility] Medicine [address] [phone] Pao Urbano MD [address] [place] [phone] CHRONIC BRONCHITIS NOS (CMS/HCC) (Primary Dx); HYPERTENSION NOS; VACCINE FOR SINGLE BACT DIS OTHER Social History Tobacco Use Types Packs/Day Years Used Date Smoking Tobacco: Never Assessed Comments Unknown Sex and Gender Information Value Date Recorded Sex Assigned at Not on file 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
--- OUTSIDE RECORDS SUMMARY | 2025-03-23 07:40 | XMS_ITS | Clinical Summary ---
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
--- OUTSIDE RECORDS SUMMARY | 2025-03-23 07:40 | XMS_ITS | Encounter Summary ---
Author Organization [facility] Address [address] [place] [address] Care Team Providers Care Care Consultant Name Role Phone Unavailable Primary Care Provider Unavailabl e Encounter Details Date Type Department Care Team (Latest Contact Info) Description 12/26/2001 Outpatient Historical [facility] Efren Kohler MD [address] [place] [address] OBSERVATION-SUSPCT MAL NEOPLASM (Primary Dx) Social History Tobacco Use Types Packs/Day Years Used Date Smoking Tobacco: Never Assessed Comments Unknown Sex and Gender Information Value Date Recorded Sex Assigned at Not on file 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
--- NOTE | 2025-03-23 07:43 | ED_ITS ---
HPI - General Adult 2 General: Chief complaint: Weakness Stated complaint: fall / weakness Time Seen by Provider: 03/23/25 07:43 History of Present Illness: 89-year-old female presents emergency ro om from home. She had slipped out of her chair earlier this morning and was on the floor for a short period of time family states she did not fall she did not strike her head. She has been a little bit more disoriented recently. She was seen earlier in the week by her primary care doctor for abdominal discomfort and was found to have a UTI however it sounds that the culture did not grow anything out the daughter states that she was advised there was no bacteria in the urine but to finish the antibiotic anyway. No reports of fever sweats or chills patient denies any chest pain or abdominal pain she denies any discomfort anywhere. She is aware that she fell this morning she thought that was why she was brought into the emergency room. Associated symptoms: Reports malaise; Deny chest pain, dyspnea or rash Related Data Home Medications ?Medication ?Instructions ?Recorded ?Confirmed nitrofurantoin 1 cap PO BID 03/23/25 monohydrate/macrocrystals 100 mg capsule Previous Rx's ?Medication ?Instructions ?Recorded amlodipine 5 mg tablet 5 mg PO BID #180 tabs aspirin 81 mg tablet,delayed 81 mg PO DAILY #90 tabs 0 12/06/24 release (Francoise Low Dose Aspirin) clopidogrel 75 mg tablet 75 mg PO DAILY #90 tabs 11/13 10/06 ferrous sulfate 324 mg (65 mg 324 mg PO DAILY 30 days #90 tabs 12/06/24 iron) tablet,delayed release gabapentin 300 mg capsule See Rx Instructions .Route 0 12/06/24 .COMPLEX #270 caps glimepiride 1 mg tablet 1 mg PO BID #180 tabs lovastatin 40 mg tablet 40 mg PO DAILY #90 tabs 11/13 10/06 metformin 500 mg tablet 500 mg PO BID #180 tabs 11/13 10/06 metoprolol tartrate 50 mg tablet 25 mg (1/2 x 50 mg) P O BID #60 tabs 12/06/24 vitamin B complex 1 tab PO DAILY #90 tabs 11/13 10/06 diabetic shoes with 3 sets of #1 ea 01/08/25 inserts Allergies Allergy/AdvReac Type Severity Reaction Status Date / Time propoxyphene (From Allergy Severe Unknown Verified 03/12/25 10:10 Darvocet-N) Review of Systems 2 Const: Reports: fatigue and malaise; Denies: fever(s) or chills Card: Denies: chest pain Resp: Denies: dyspnea GI: Denies: abdominal pain : Denies: dysuria, urinary frequency or urinary urgency Musc: Denies: neck pain or back pain Skin/Breast: Denies: rash PFSH ED 2 PFSH: Medical History History of echocardiogram 2017 EF 60%, grade I/IV diastolic dysfunction CVA (cerebral vascular accident) 2017 left basal ganglia Carotid artery disease CTA neck 2017 62% stenosis at origin and 70% stenosis proximal left cervical internal carotid artery, 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 and left distal vertebral artery, nonstenotic atherosclerotic plaque of the origin of the right cervical internal carotid artery Macular degeneration Peripheral vascular disease Breast cancer Hypertension Hyperlipidemia Diabetes mellitus, type II Osteoarthritis of right knee Osteoarthritis of left knee Surgical History S/P peripheral artery angioplasty with stent placement left leg 2010 History of left mastectomy History of hernia repair Family History Mother Stroke Brain tumor Social History Smoking and tobacco/nicotine status: never used tobacco/nicotine 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 Physical Exam 2 Const: COMMON NORMALS: no acute distress GENERAL APPEARANCE: cooperative and comfortable ORIENTATION/CONSCIOUSNESS: Yes awake, Yes oriented to person, Yes oriented to place and Yes oriented to time HENMT: COMMON NORMALS: normocephalic, atraumatic and hearing grossly normal bilaterally HEAD & SCALP: normocephalic and atraumatic Resp: COMMON NORMALS: normal respiratory effort, No retractions, No use of accessory muscles and clear to auscultation bilaterally AUSCULTATION: clear to auscultation bilaterally Cardio: COMMON NORMALS: regular rate, regular rhythm and No murmurs present (Cardio) RATE: regular rate RHYTHM: regular rhythm GI: COMMON NORMALS: Soft to palpation and No hepatosplenomegaly present A USCULTATION: Yes normoactive bowel sounds PALPATION: Yes Soft to palpation, No Tenderness to palpation present (GI), No Guarding due to palpation present (GI) and Yes No hepatosplenomegaly present Extremity: COMMON NORMALS: normal to inspection, capillary refill normal, no clubbing, cyanosis or edema, no calf tenderness and no pedal edema Neuro: SENSORIUM/ORIENTATION: Yes oriented to person, Yes oriented to place and Yes oriented to time Skin: COMMON NORMALS: no rashes or lesions noted GENERAL SKIN EXAM: no rashes or lesions noted Course 2 Vital Signs: Vital signs: Vital Signs Temperature 97.8 F 03/23/25 13:59 Pulse Rate 70 03/23/25 13:59 Respiratory Rate 16 03/23/25 13:59 Blood Pressure 148/77 03/23/25 13:59 Pulse Oximetry 99 03/23/25 13:59 Oxygen Delivery Me thod Nasal Cannula 03/23/25 12:45 Oxygen Flow Rate 2 03/23/25 12:45 [facility] - General Adult Medical Decision Making Patient initially seen and evaluated. Evaluate for altered mental status, UA CBC CMP EKG and chest x-ray. On exam patient had mild abdominal discomfort in the left lower quadrant but was not reproducible. There are no signs of head trauma no complaint trauma to her head so CT head was not done at this time. Laboratory test show a significant anemia interestingly is normocytic she has not been tachycardic Hemoccult of the stool was negative. Repeat hemoglobin verified the initial blood work. BUN not significantly elevated. Blood for transfusion ordered. Discussed with hospitalist will admit. Initial on unit of blood transfusing now. Orders written for admission. Medical Records I reviewed the patient's medical records. Lab Data I reviewed the patient's lab results. 03/23/25 10:15 03/23/25 08:33 Radiology Impressions Chest X-Ray 03/23/25 07:35 IMPRESSION: There is dense left basilar consolidation and atelectasis. There is a left pleural effusion. Chest/Abdomen/Pelvis CT 03/23/25 10:14 IMPRESSION: 1. Bilateral pleural effusions with compressive atelectasis. 2. Linear opacities involving both lungs likely representing atelectasis and/or scarring. No non dependent airspace disease is appreciated. 3. Multiple enlarged mediastinal lymph nodes. Exact etiology is uncertain. An inflammatory etiology is favored. IMPRESSION: 1. Large paraesophageal/hiatal hernia. 2. Diverticulosis. 3. Cholelithiasis. 4. Atherosclerosis. COMMENTS: Consistent with the [employer]'s Incidental Findings Committee white paper (J Am Joanne Radiol 2018): Any incidental renal lesion less than 1 cm or classified as too small to characterize, or any incidental cystic renal lesion characterized as simple-appearing, is likely benign. No follow-up imaging is recommended for these lesions per consensus recommendations based on imaging criteria. Laboratory Results WBC 5.92 10^3/uL (3.29-11.43) 03/23/25 10:15 Corrected WBC Cancelled 03/23/25 08:33 RBC 2.08 10^6/uL (3.85-5.65) L 03/23/25 10:15 Hgb 5.70 g/dL (11.27-16.99) L* 03/23/25 10:15 Hct 19.4 % (36-47) L* 03/23/25 10:15 MCV 93.3 fl (85-98) 03/23/25 10:15 MCH 27.4 pg (27-33) 03/23/25 10:15 MCHC 29.4 g/dL (30-55) L D 03/23/25 10:15 RDW 15.0 % (12.1-15.1) 03/23/25 10:15 Plt Count 266 10^3/cmm (157-399) 03/23/25 10:15 MPV 9.9 fL (7.4-10.4) 03/23/25 10:15 Gran % Cancelled 03/23/25 08:33 Neut % (Auto) 67.6 % 03/23/25 10:15 Lymph % (Auto) 19.9 % 03/23/25 10:15 [place] % (Auto) 10.3 % 03/23/25 10:15 Eos % (Auto) 1.7 % 03/23/25 10:15 Baso % (Auto) 0.2 % 03/23/25 10:15 Reticulocyte % (Auto) 8.2 % (0.5-2.0) H 03/23/25 10:15 Neut # (Auto) 4.00 10^3/uL (1.8-7.7) 03/23/25 10:15 Lymph # (Auto) 1.2 10^3/uL (0.8-4.8) 03/23/25 10:15 [place] # (Auto) 0.6 10^3/uL (0.2-0.9) 03/23/25 10:15 Eos # (Auto) 0.1 10^3/uL (0.0-0.8) 03/23/25 10:15 Baso # (Auto) 0.0 10^3/uL (0.0-0.1) 03/23/25 10:15 Absolute Gran (auto) Cancelled 03/23/25 08:33 Nucleated RBC % (auto) 0 % 03/23/25 10:15 Nucleated RBCs # 0.0 /100WBC 03/23/25 10:15 Peripher Smr Path Cons Sent for review 03/23/25 10:15 Sodium 138 mmol/L (136-145) 03/23/25 08:33 Potassium 4.8 mmol/L (3.5-5.1) 03/23/25 08:33 Chloride 107 mmol/L (98-107) 03/23/25 08:33 Carbon Dioxide 20 mmol/L (22-29) L 03/23/25 08:33 Anion Gap 15.8 (5-19) 03/23/25 08:33 BUN 18 mg/dL (8-23) 03/23/25 08:33 Creatinine 1.1 mg/dL (0.5-0.9) H 03/23/25 08:33 GFR Calculation Not Reportable 03/23/25 08:33 Glucose 167 mg/dL (65-115) H 03/23/25 08:33 Calculated Osmolality 292 mOsm/kg (285-295) 03/23/25 08:33 Lactic Acid 2.7 mmol/L (0.5-2.2) H 03/23/25 08:33 Lactic Acid (Sepsis) 2.0 mmol/L (0.5-2.2) 03/23/25 11:04 Calcium 9.1 mg/dL (8.5-10.5) 03/23/25 08:33 Iron 15 ug/dL (37-145) L 03/23/25 08:33 TIBC 341 mcg/dl 03/23/25 08:33 % Saturation 4.3 % (20-50) L 03/23/25 08:33 Unsat Iron Binding 326 ug/dL (112-347) 03/23/25 08:33 Ferritin 35 ng/mL (15-150) 03/23/25 08:33 Total Bilirubin 0.2 mg/dL (0.15-1.2) 03/23/25 08:33 AST 27 U/L (0-32) 03/23/25 08:33 ALT 14 U/L (0-33) 03/23/25 08:33 Alkaline Phosphatase 77 U/L (35-105) 03/23/25 08:33 NT-Pro-B Natriuret Pep 3962 pg/mL (0-450) H 03/23/25 08:33 Total Protein 5.8 g/dL (6.6-8.7) L 03/23/25 08:33 Albumin 3.3 g/dL (3.5-5.2) L 03/23/25 08:33 Globulin 2.5 g/dL (1.3-4.6) 03/23/25 08:33 Vitamin B12 > 2000 pg/mL (232-1245) H 03/23/25 08:33 Urine Color Yellow (Yellow) 03/23/25 07:50 Urine Appearance Clear (CLEAR) 03/23/25 07:50 Urine pH 5.5 (5-7) 03/23/25 07:50 Ur Specific [place] 1.019 (1.005-1.030) 03/23/25 07:50 Urine Protein Trace (Negative) A 03/23/25 07:50 Urine Glucose (UA) Negative (Normal) 03/23/25 07:50 Urine Ketones Trace (Negative) 03/23/25 07:50 Urine Blood Negative (Negative) 03/23/25 07:50 Urine Nitrate Negative (Negative) 03/23/25 07:50 Urine Bilirubin Negative (Negative) 03/23/25 07:50 Urine Urobilinogen 1.0 mg/dL (Negative) 03/23/25 07:50 Ur Leukocyte Esterase Negative (Negative) 03/23/25 07:50 Urine RBC 0-2 /hpf (0-2) 03/23/25 07:50 Urine WBC 0-5 /hpf (0-5) 03/23/25 07:50 Ur Squamous Epith Cells 0-5 /hpf (0-5) 03/23/25 07:50 Amorphous Sediment Not Reportable 03/23/25 07:50 Urine Bacteria None seen /hpf (NONE) 03/23/25 07:50 Hyaline Casts 0-4 /lpf H 03/23/25 07:50 Blood Type A Positive 03/23/25 09:30 Rho(D) Type Rh positive 03/23/25 09:30 Antibody Screen Negative 03/23/25 09:30 Crossmatch See Detail 03/23/25 09:30 All radiology interpretation(s) finalized by discharge EKG Data EKG 1: I personally reviewed and interpreted this EKG as follows: Prior EKG tracings: available for review Interpretation: EKG 03/23/2025 807 atrial fibrillation with a right bundle branch block rate of 68 QTc 418. Inverted T waves in lateral leads also inverted T waves in leads II, III and aVF. This is unchanged from EKG 01/04/2023. Previous EKG also had inverted T waves in V2 which are now upright. Computer generated interpretation: Chest X-Ray 03/23/25 07:35 IMPRESSION: There is dense left basilar consolidation and atelectasis. There is a left pleural effusion. Chest/Abdomen/Pelvis CT 03/23/25 10:14 IMPRESSION: 1. Bilateral pleural effusions with compressive atelectasis. 2. Linear opacities involving both lungs likely representing atelectasis and/or scarring. No non dependent airspace disease is appreciated. 3. Multiple enlarged mediastinal lymph nodes. Exact etiology is uncertain. An inflammatory etiology is favored. IMPRESSION: 1. Large paraesophageal/hiatal hernia. 2. Diverticulosis. 3. Cholelithiasis. 4. Atherosclerosis. COMMENTS: Consistent with the [employer]'s Incidental Findings Committee white paper (J Am Joanne Radiol 2018): Any incidental renal lesion less than 1 cm or classified as too small to characterize, or any incidental cystic renal lesion characterized as simple-appearing, is likely benign. No follow-up imaging is recommended for these lesions per consensus recommendations based on imaging criteria. Discharge Plan Discharge Patient Disposition: Admitted As Inpatient Admit Provider: Zack James Clinical Impression: Acute anemia, Bilateral pleural effusion, Diabetes mellitus, type II, Altered mental status, Bradycardia Condition: Stable Coding Level of Care Code ED Looper Operator for Zeferino De
--- NOTE | 2025-03-23 07:46 | PC.NURSE ---
PATIENT PLACED ON 2 L NC DUE TO O2 SATURATION OF 84% ON RA.
[2025-03-23 07:57] LABS: Glucose Urine UA Negative (Normal); Nitrate Urine Negative (Negative); Specific Gravity, Urine 1.019 (1.005-1.030)
[2025-03-23 08:02] LABS: Add Urine Microscopic? YES
--- NOTE | 2025-03-23 08:07 | ECG_ITS ---
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 Measurements Intervals [place] Rate: 68 P: 0 AR: 0 QRS: 76 QRSD: 121 T: -21 QT: 400 QTc: 428 Interpretive Statements ATRIAL FIBRILLATION RIGHT BUNDLE BRANCH BLOCK [120+ ms QRS DURATION, UPRIGHT V1, 40+ ms S IN I/aVL/V4/V5/V6] ST DEVIATION AND MODERATE T-WAVE ABNORMALITY, CONSIDER LATERAL ISCHEMIA [-0.1+ mV T-WAVE IN I/aVL/V5/V6] Compared to ECG 01/04/2023 12:49:23 Right bundle-branch block now present Sinus rhythm no longer present Incomplete right bundle-branch block no longer present T-wave abnormality still present Possible ischemia still present Electronically Signed On 03-23-2025 20:12:06 [employer] PILOT by Xavier Christopher M.D. [email or web address]
[2025-03-23 08:11] LABS: UA Slide Review UA Slide Review Perf
[2025-03-23 09:01] LABS: Alanine Aminotransferase 14 U/L (0-33); Albumin Level 3.3 g/dL (3.5-5.2); Alkaline Phosphatase 77 U/L (35-105); Blood Urea Nitrogen 18 mg/dL (8-23); Calcium 9.1 mg/dL (8.5-10.5); Carbon Dioxide 20 mmol/L (22-29); Chloride 107 mmol/L (98-107); Globulin 2.5 g/dL (1.3-4.6); Glucose 167 mg/dL (65-115); Osmolality Calculated 292 mOsm/kg (285-295); Sodium 138 mmol/L (136-145); Total Protein 5.8 g/dL (6.6-8.7)
[2025-03-23 09:02] LABS: Anion Gap 15.8 (5-19); Aspartate Amino Transferase 27 U/L (0-32); Potassium 4.8 mmol/L (3.5-5.1)
[2025-03-23 09:13] LABS: Lactic Sepsis W/Reflex 2.7 mmol/L (0.5-2.2)
[2025-03-23 09:16] LABS: Hematocrit 22.6 % (36-47); Mean Corpuscular HGB Conc 27.9 g/dL (30-55); Mean Corpuscular Hemoglobin 26.9 pg (27-33); Mean Corpuscular Volume 96.6 fl (85-98); Nucleated Red Blood Cells % 0 %; Platelet Count 240 10^3/cmm (157-399); Red Blood Count 2.34 10^6/uL (3.85-5.65); White Blood Count 6.59 10^3/uL (3.29-11.43)
[2025-03-23 09:19] LABS: Hemoglobin 6.30 g/dL (11.27-16.99)
[2025-03-23 09:30] LABS: Reflex Lactate Order REFLEX LACTIC ORDERD
--- NOTE | 2025-03-23 10:14 | CTR_ITS ---
PROCEDURE INFORMATION: Exam: CTA Chest With Contrast Exam date and time: 03/23/2025 10:23 AM Age: 89 years old Clinical indication: Other: New pleural effusion, dyspnea, hypoxia, anemia, llq pain TECHNIQUE: Imaging protocol: Computed tomographic angiography of the chest with contrast. Exam focused on the arteries. 3D rendering (Not supervised by radiologist): MIP and/or 3D reconstructed images were created by the technologist. Radiation optimization: All CT scans at this facility use at least one of these dose optimization techniques: automated exposure control; mA and/or kV adjustment per patient size (includes targeted exams where dose is matched to clinical indication); or iterative reconstruction. Contrast material: OMNI 350; Contrast volume: 100 ml; Contrast route: INTRAVENOUS (IV); COMPARISON: CT chest abdpel w/*[id number] 05/17/2024 6:02 PM RADIATION DOSE METRICS: Total DLP (mGy-cm): 925.04 FINDINGS: Pulmonary arteries: Normal. No pulmonary emboli. Aorta: The thoracic aorta is normal in caliber without aneurysm or dissection. There is calcified plaque involving the aorta and coronary vessels. Lungs: There is dependent/compressive atelectasis. No non dependent airspace disease is appreciated. Linear atelectasis or scarring noted involving the upper and lower lobes as well as the right middle lobe and lingula. No definite lung nodules or masses are identified. Pleural spaces: There are small bilateral pleural effusions slightly greater on the right. Heart: Unremarkable. No cardiomegaly. No pericardial effusion. Lymph nodes: There are multiple small as well as enlarged mediastinal lymph nodes. There is a right paratracheal node measuring 15 mm in short axis dimension. Right paratracheal node measures 10.4 mm in short axis dimension. There are additional smaller nodes. Stomach: There is a large hiatal/paraesophageal hernia. Bones/joints: Unremarkable. No acute fracture. Soft tissues: Unremarkable. PROCEDURE INFORMATION: Exam: CT Abdomen And Pelvis With Contrast Exam date and time: 03/23/2025 10:23 AM Age: 89 years old Clinical indication: Other: New pleural effusion, dyspnea, hypoxia, anemia, llq pain TECHNIQUE: Imaging protocol: Computed tomography of the abdomen and pelvis with contrast. Radiation optimization: All CT scans at this facility use at least one of these dose optimization techniques: automated exposure control; mA and/or kV adjustment per patient size (includes targeted exams where dose is matched to clinical indication); or iterative reconstruction. Contrast material: OMNI 350; Contrast volume: 100 ml; Contrast route: INTRAVENOUS (IV); COMPARISON: CT chest abdpel w/*[id number] 05/17/2024 6:02 PM RADIATION DOSE METRICS: Total DLP (mGy-cm): 925.04 FINDINGS: Liver: Normal. No mass. Gallbladder and biliary ducts: There are gallstones within the gallbladder. No pericholecystic inflammatory change is identified. Pancreas: Normal. No ductal dilation. Spleen: Normal. No splenomegaly. Adrenal glands: Normal. No mass. Kidneys and ureters: Small benign-appearing renal cysts are noted. Small renal calculus versus renovascular calcification noted on the right. No hydronephrosis is noted. Stomach and bowel: There is a large hiatal/paraesophageal hernia. There are scattered colonic diverticula. No large bowel wall thickening is appreciated. No dilated loops of large or small bowel is appreciated. Appendix: No evidence of appendicitis. Intraperitoneal space: Unremarkable. No free air. No significant fluid collection. Vasculature: The aorta is normal in caliber. There is calcified plaque involving the aorta and its branch vessels. Lymph nodes: Unremarkable. No enlarged lymph nodes. Urinary bladder: Unremarkable as visualized. Reproductive: The uterus is not identified. Bones/joints: Unremarkable. No acute fracture. Soft tissues: There are bilateral fat containing groin hernias. CT/CT angio chest w abd pel w con IMPRESSION: 1. Bilateral pleural effusions with compressive atelectasis. 2. Linear opacities involving both lungs likely representing atelectasis and/or scarring. No non dependent airspace disease is appreciated. 3. Multiple enlarged mediastinal lymph nodes. Exact etiology is uncertain. An inflammatory etiology is favored. IMPRESSION: 1. Large paraesophageal/hiatal hernia. 2. Diverticulosis. 3. Cholelithiasis. 4. Atherosclerosis. COMMENTS: Consistent with the [employer]'s Incidental Findings Committee white paper (J Am Joanne Radiol 2018): Any incidental renal lesion less than 1 cm or classified as too small to characterize, or any incidental cystic renal lesion characterized as simple-appearing, is likely benign. No follow-up imaging is recommended for these lesions per consensus recommendations based on imaging criteria.
[2025-03-23 10:21] LABS: Mean Corpuscular HGB Conc 29.4 g/dL (30-55); Mean Corpuscular Hemoglobin 27.4 pg (27-33); Mean Corpuscular Volume 93.3 fl (85-98); Nucleated Red Blood Cells % 0 %; Platelet Count 266 10^3/cmm (157-399); Red Blood Count 2.08 10^6/uL (3.85-5.65); White Blood Count 5.92 10^3/uL (3.29-11.43)
[2025-03-23] MEDS: iohexol 350 mg/mL 500 mL Btl (per mL) IV (10:30)
[2025-03-23 10:31] LABS: Hematocrit 19.4 % (36-47); Hemoglobin 5.70 g/dL (11.27-16.99)
[2025-03-23 11:25] LABS: Lactic Acid level (Lactate) 2.0 mmol/L (0.5-2.2)
--- NOTE | 2025-03-23 12:06 | PM.HP ---
Providers/Chief Complaint Primary Care Provider: Lb Akers MD Chief Complaint: fall / weakness History of Present Illness Niya Gupta is a 89 year old female with a past medical history of CVA, chronic right sided facial droop, on aspirin, Plavix, atrial fibrillation off anticoagulant therapy due to acute anemia, type 2 diabetes mellitus, who presents to [facility] due to weakness, fatigue. Patient has been weak and fatigued for the last few weeks, this morning she slid out of her chair, denies any significant fall or head trauma, recently diagnosed with a UTI, patient is alert to person, to place, not time she is very hard of hearing, she reports weakness, fatigue, no abdominal pain, no bloody or black stools Review of Systems Const: Reports: fatigue and malaise; Denies: fever(s) or chills Card: Denies: chest pain Resp: Denies: dyspnea GI: Denies: abdominal pain Medications/Allergies Home Medications ?Medication ?Instructions ?Recorded ?Confirmed ?Last Taken ?Type amoxicillin 500 mg-potassium 1 tab PO TID #30 tabs 08/29/24 03/12/25 Unknown Rx clavulanate 125 mg tablet (Augmentin) amlodipine 5 mg tablet 5 mg PO BID #180 tabs 12/06/24 03/12/25 Unknown Rx aspirin 81 mg tablet,delayed 81 mg PO DAILY #90 tabs 12/06/24 03/12/25 Unknown Rx release (Francoise Low Dose Aspirin) clopidogrel 75 mg tablet 75 mg PO DAILY #90 tabs 12/06/24 03/12/25 Unknown Rx ferrous sulfate 324 mg (65 mg 324 mg PO DAILY 30 days #90 tabs 12/06/24 03/12/25 Unknown Rx iron) tablet,delayed release gabapentin 300 mg capsule See Rx Instructions .Route 12/06/24 03/12/25 Unknown Rx .COMPLEX #270 caps glimepiride 1 mg tablet 1 mg PO BID #180 tabs 12/06/24 03/12/25 Unknown Rx lovastatin 40 mg tablet 40 mg PO DAILY #90 tabs 12/06/24 03/12/25 Unknown Rx metformin 500 mg tablet 500 mg PO BID #180 tabs 12/06/24 03/12/25 Unknown Rx metoprolol tartrate 50 mg tablet 25 mg (1/2 x 50 mg) PO BID #60 tabs 12/06/24 03/12/25 Unknown Rx vitamin B complex 1 tab PO DAILY #90 tabs 12/06/24 03/12/25 Unknown Rx diabetic shoes with 3 sets of #1 ea 01/08/25 03/12/25 Unknown Rx inserts Allergies Allergy/AdvReac Type Severity Reaction Status Date / Time propoxyphene (From Allergy Severe Unknown Verified 03/12/25 10:10 Darvocet-N) PFSH Acute PFSH: Medical History History of echocardiogram 2016 EF 60%, grade I/IV diastolic dysfunction CVA (cerebral vascular accident) 2017 left basal ganglia Carotid artery disease CTA neck 2017 62% stenosis at origin and 70% stenosis proximal left cervical internal carotid artery, 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 and left distal vertebral artery, nonstenotic atherosclerotic plaque of the origin of the right cervical internal carotid artery Macular degeneration Peripheral vascular disease Breast cancer Hypertension Hyperlipidemia Diabetes mellitus, type II Osteoarthritis of right knee Osteoarthritis of left knee Surgical History S/P peripheral artery angioplasty with stent placement left leg 2010 History of left mastectomy History of hernia repair Family History Mother Stroke Brain tumor Social History Smoking and tobacco/nicotine status: never used tobacco/nicotine 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 Vitals/I&O/Wt Last Vital Signs Temp 97.9 F 03/23/25 11:59 Pulse 73 03/23/25 11:59 Resp 18 03/23/25 11:59 BP 133/53 03/23/25 11:59 Pulse Ox 94 03/23/25 11:59 O2 Del Method Room Air 03/23/25 10:35 O2 Flow Rate 2 03/23/25 07:53 03/22/25 03/23/25 03/23/25 22:59 06:59 14:59 Intake Total 0 / 0 Balance 0 / 0 Weight last 48 hrs Weight 86.183 kg Physical Exam Const: COMMON NORMALS: no acute distress ORIENTATION/CONSCIOUSNESS: Yes awake, Yes oriented to person and Yes oriented to place; not oriented to time OTHER: Pale appearing Eye: OTHER: Conjunctival pallor Resp: COMMON NORMALS: normal respiratory effort, No retractions, No use of accessory muscles and clear to auscultation bilaterally AUSCULTATION: clear to auscultation bilaterally Cardio: COMMON NORMALS: regular rate, regular rhythm, S1 normal heart sound present and S2 normal heart sound present RATE: regular rate RHYTHM: regular rhythm HEART SOUNDS: S1 normal heart sound present and S2 normal heart sound present GI: COMMON NORMALS: Normal to inspection, nondistended, normoactive bowel sounds present, Soft to palpation and non-tender Extremity: COMMON NORMALS: no pedal edema Neuro: COMMON NORMALS: CN's II-XII intact bilaterally and moves all extremities Psych: COMMON NORMALS: mental status grossly normal Data 03/23/25 10:15 03/23/25 08:33 A&P Assessment and plan 1. Acute anemia: 2. Diabetes mellitus, type II: 3. Bilateral pleural effusion: Plan: Acute on chronic anemia - Hemoglobin 5.7 -Hemoccult stool negative in the emergency room -CT scan abdomen pelvis with no acute findings - Iron studies, reticulocyte count - Protonix, Carafate - Transfuse 2 units PRBC - Patient's family would prefer conservative intervention, for now hold off on EGD Bilateral pleural effusions, Lasix therapy Type 2 diabetes mellitus History of CVA, has right facial droop, which according to family is chronic - Discussed precipitants of holding anticoagulant therapy, patient's family voiced understanding, all questions answered, agreed to proceed hold aspirin and Plavix DNR/DNI, patient has been telling family, that she has been less functional, that she is ready to go SCDs for DVT prophylaxis, Lovenox relatively contraindicated given acute anemia PDMP PDMP Reviewed: Not Reviewed Attestations Medical Necessity Statement*: Patient requires hospitalization, inpatient, greater than 2 midnights for acute anemia Diagnoses Acute anemia D64.9 Diabetes mellitus, type II E11.9 Bilateral pleural effusion J90
[2025-03-23 12:10] LABS: LAB Peripheral Smear Sent for Review
[2025-03-23 12:44] LABS: Ferritin 35 ng/mL (15-150); Iron 15 ug/dL (37-145); NT Pro B Type Natriuretic Pept 3962 pg/mL (0-450)
[2025-03-23 13:02] LABS: Total Iron Binding Capacity 341 mcg/dl; Unsaturated Iron Binding 326 ug/dL (112-347); Vitamin B12 > 2000 pg/mL (232-1245)
[2025-03-23] MEDS: sucralfate 1 gm/10 mL Oral Liq UDC PO ×2 (13:52→17:41)
[2025-03-23] MEDS: FUROsemide 10 mg/mL SDV 2mL 20 MG IVP (15:23)
[2025-03-23] MEDS: pantoprazole 40 mg SDV IVP (15:23)
[2025-03-23] MEDS: ferric gluconate 125 MG in sodium chloride 0.9% (100 ml) 100 ML 110 MG IV (18:42)
[2025-03-23 20:53] LABS: Hematocrit 29.5 % (36-47); Hemoglobin 9.10 g/dL (11.27-16.99); Mean Corpuscular HGB Conc 30.8 g/dL (30-55); Mean Corpuscular Hemoglobin 28.3 pg (27-33); Mean Corpuscular Volume 91.6 fl (85-98); Nucleated Red Blood Cells % 0.4 %; Platelet Count 210 10^3/cmm (157-399); Red Blood Count 3.22 10^6/uL (3.85-5.65); White Blood Count 7.35 10^3/uL (3.29-11.43)
[2025-03-23 21:21] LABS: INR 1.08 (0.8-1.2); Prothrombin Time 14.70 SECONDS (12.1-14.9)
[2025-03-23 21:22] LABS: Partial Thromboplastin Time 38.1 SECONDS (23.9-36.7)
[2025-03-24] VITALS (10 sets, daily range): BP systolic 105–155; BP diastolic 54–68; PULSE 72–85; RESP 16–17; TEMP 36.8–36.9; O2SAT 90–94
[2025-03-24] MEDS: pantoprazole 40 mg SDV IVP ×2 (02:12→11:52)
[2025-03-24] MEDS: sucralfate 1 gm/10 mL Oral Liq UDC PO ×3 (02:12→11:52)
[2025-03-24] MEDS: ATORVASTATIN 20 MG TABLET PO (04:17)
[2025-03-24 06:06] LABS: Hematocrit 28.7 % (36-47); Hemoglobin 9.00 g/dL (11.27-16.99); Mean Corpuscular HGB Conc 31.4 g/dL (30-55); Mean Corpuscular Hemoglobin 28.0 pg (27-33); Mean Corpuscular Volume 89.4 fl (85-98); Nucleated Red Blood Cells % 0.3 %; Platelet Count 216 10^3/cmm (157-399); Red Blood Count 3.21 10^6/uL (3.85-5.65); White Blood Count 6.71 10^3/uL (3.29-11.43)
[2025-03-24 06:25] LABS: Anion Gap 13.7 (5-19); Blood Urea Nitrogen 17 mg/dL (8-23); Calcium 8.3 mg/dL (8.5-10.5); Carbon Dioxide 24 mmol/L (22-29); Chloride 107 mmol/L (98-107); Glucose 94 mg/dL (65-115); Osmolality Calculated 293 mOsm/kg (285-295); Potassium 3.7 mmol/L (3.5-5.1); Sodium 141 mmol/L (136-145)
--- NOTE | 2025-03-24 09:04 | PC.CHAP ---
Pastoral Care Encounter/Spiritual Assessment Type of Contact [] Declined banking paralegal visit [] Patient/Family/Request visit [] Outpatient visit [] Follow-up visit [] Physician referral [] Code/Alert [x] Routine visit [] Staff referral [] Actively dying [x] Patient sleeping [] Family support [] [] Out of room [] Palliative care [] [] Receiving care in room [] Pre-surgical visit [] Trauma [] Long length of stay [] ICU visit [] Other: Relational/Emotional Strength [] Patient feels connected with others/family/visitors/staff [] Distress [] Loneliness/isolation [] Abandonment Spirituality of Patient [] Person of Sarah [] Attends Tenriism of their Sarah [] Believes in Prayer [] Reads Bible or Confucianism materials [] There are Spiritual issues to be addressed [place] Interventions [] Prayer [] Active listening [] Non-anxious presence [] Spiritual/emotional support [] Crisis/trauma care [] Spiritual counseling [] Bereavement support [] Provided bereavement packet [] Provided Bible/devotional materials [] Provided toy/stuffed animal, coloring book to patient or family member [] Provided Communion [] Anointing/Ono [] Salvation [] Completed spiritual assessment [] Other: Impact on Illness or Injury [] Angry [] Fearful [] Anxious [] Often cries [] Exhaustion [] Unable to work [] Unable to attend sabianism [] Unable to walk/stand [] Unable to read [] Unable to drive [] Unable to eat/drink [] Unable to sleep [] Unable to be with family [] Patient intubated [] Other: Summary Time spent with patient
--- NOTE | 2025-03-24 11:36 | P.DS_ITS ---
Discharge Providers Date of Admission: 03/23/25 11:20 Date of Discharge: March 24, 2025 Attending Provider at Admission: Zack James MD Attending Provider at Discharge: Rambo Gallegos MD Primary Care Provider: Lb Akers MD Diagnoses at Discharge Discharge Diagnosis 1. Severe anemia: 2. PAD (peripheral artery disease): 3. Diabetes mellitus with diabetic neuropathy: 4. Hypertension: 5. Hyperlipidemia: Reason for Visit Reason for Visit: fall / weakness Hospital Course Hospital Course Patient was admitted because of complaint of debilitating fatigue and weakness. She was found to have a severely low hemoglobin of 6.3, and hematocrit of 22.6. Repeat of these labs showed Hb of 5.7 and HCT of 19.4. Consequently, patient was admitted. There was obvious source of bleeding or any known direct cause of this. Patient was transfused 2 units of PRBCs, which helped to bring the hemoglobin up to 9.1 and hematocrit dropped to 29.5. She reports feeling like after this. Thereafter, she was monitored closely. Other associated symptoms which temporarily, while chronic medical problems were treated with home medications, as adjusted. As at this point, patient remained stable, therefore proceed with discharge. She is therefore discharged as requested. See my discharge orders and instructions for more details. Physical Exam Narrative: General: Awake and alert. No obvious distress. CVS: Rhythmic & regular heart rate. Chest: Clinically clear. All other symptoms essentially within normal limits. Discharge Data Studies Completed and Pending Completed Studies During Hospitalization Category Date Time Status CTA chest CT abdomen pelvis [CT Angio Chest + Abdomen Cat Scan 03/23/25 10:14 Completed Pelvis w/ contrast; [id number] + [id number]] Stat XR chest 1V portable [id number] Stat Exams 03/23/25 07:35 Completed Pending at discharge Category Date Time Status Basic Metabolic Panel AM LABS Lab 03/25/25 04:00 Ordered Basic Metabolic Panel AM LABS Lab 03/26/25 04:00 Ordered Blood Culture Stat Lab 03/23/25 09:11 Received Complete Blood Count w/Auto AM LABS Lab 03/25/25 04:00 Ordered Complete Blood Count w/Auto AM LABS Lab 03/26/25 04:00 Ordered Occult Blood Stool [Immunochemical Fecal OCB] Routine Lab 03/23/25 11:32 Ordered Radiology Impressions Chest X-Ray 03/23/25 07:35 IMPRESSION: There is dense left basilar consolidation and atelectasis. There is a left pleural effusion. Chest/Abdomen/Pelvis CT 03/23/25 10:14 IMPRESSION: 1. Bilateral pleural effusions with compressive atelectasis. 2. Linear opacities involving both lungs likely representing atelectasis and/or scarring. No non dependent airspace disease is appreciated. 3. Multiple enlarged mediastinal lymph nodes. Exact etiology is uncertain. An inflammatory etiology is favored. IMPRESSION: 1. Large paraesophageal/hiatal hernia. 2. Diverticulosis. 3. Cholelithiasis. 4. Atherosclerosis. COMMENTS: Consistent with the [employer]'s Incidental Findings Committee white paper (J Am Joanne Radiol 2018): Any incidental renal lesion less than 1 cm or classified as too small to characterize, or any incidental cystic renal lesion characterized as simple-appearing, is likely benign. No follow-up imaging is recommended for these lesions per consensus recommendations based on imaging criteria. Laboratory Results See Hospital course above for relevant hemoglobin and hematocrit numbers. Vitals Last Vital Signs Temp 98.4 F 03/24/25 11:26 Pulse 75 03/24/25 11:26 Resp 17 03/24/25 11:26 BP 105/64 03/24/25 11:26 Pulse Ox 94 03/24/25 11:26 O2 Del Method Nasal Cannula 03/24/25 11:26 O2 Flow Rate 2 03/24/25 08:37 Discharge Plan Discharge Patient Disposition: Home Health Service Condition: Stable Prescriptions: Continued (DME) diabetic shoes with 3 sets of inserts See Rx Instructions .ROUTE .MEDSUPPLY Qty: 1 0RF Rx Instructions: As directed amlodipine 5 mg tablet 5 mg PO BID Qty: 180 3RF aspirin [Francoise Low Dose Aspirin] 81 mg tablet,delayed release (DR/EC) 81 mg PO DAILY Qty: 90 3RF clopidogrel 75 mg tablet 75 mg PO DAILY Qty: 90 11RF ferrous sulfate 324 mg (65 mg iron) tablet,delayed release (DR/EC) 324 mg PO DAILY 30 Days Qty: 90 5RF gabapentin 300 mg capsule See Rx Instructions .ROUTE .COMPLEX Qty: 270 3RF Dose Instruction: TAKE 1 CAPSULE BY MOUTH IN THE MORNING AND 2 IN THE EVENING Rx Instructions: TAKE 1 CAPSULE BY MOUTH IN THE MORNING AND 2 IN THE EVENING glimepiride 1 mg tablet 1 mg PO BID Qty: 180 3RF lovastatin 40 mg tablet 40 mg PO DAILY Qty: 90 3RF metformin 500 mg tablet 500 mg PO BID Qty: 180 3RF metoprolol tartrate 50 mg tablet 25 mg PO BID Qty: 60 11RF vitamin B complex Tablet 1 tab PO DAILY Qty: 90 3RF nitrofurantoin monohyd/m-cryst 100 mg capsule 1 cap PO BID Rx Instructions: 5days Discharge Order = DC NOW: Discharge Order (Routine); Ordered 03/24/25 Ordered By: Rambo Gallegos Referrals: [facility] [Outside] Lb Akers MD [Primary Care Provider, Family Practice] - 04/01/25 11:50 am Discharge Diet: Diabetic Discharge Activity: Resume usual activity Patient Instructions: Anemia, Pleural Effusion (DC), Opioid Safety, Patient Portal & Amy Instructions Discharge Attestations Time Spent in Discharge Care*: less than 30 min Quality Metrics Clinical Quality Measures [ No reported AMI, CVA or VTE this stay] Coding Level of Care Code Acute Code for Chg Fwd Diagnoses Severe anemia D64.9 PAD (peripheral artery disease) I73.9 Diabetes mellitus with diabetic neuropathy E11.40 Hypertension I10 Hyperlipidemia E78.5
--- NOTE | 2025-03-24 12:02 | PC.OT ---
OT EVALUATION ATTEMPTED; PATIENT IS SLEEPING VERY SOUNDLY. THERAPIST GATHERED INFORMATION FROM SPOUSE WHO IS PRESENT IN ROOM. EVALUATION WILL BE ATTEMPTED AGAIN LATER.
--- NOTE | 2025-03-24 16:26 | PC.OT ---
OT EVALUATION HELD DUE TO SCHEDULED PATIENT D/C THIS AFTERNOON
== END 2025-03-24 19:00 | disposition home health service (06) | DRG 812 ==
LOC: ER 10:28 → MEDSURG 12:08
PROVIDERS: Admitting Provider Family Medicine; Emergency Provider Family Medicine; PCP Family Medicine; Visit Provider Family Medicine
DX: D64.9 Anemia, unspecified (principal); J90 Pleural effusion, not elsewhere classified; E11.51 Type 2 diabetes mellitus with diabetic peripheral angiopathy without gangrene; E11.42 Type 2 diabetes mellitus with diabetic polyneuropathy; E78.5 Hyperlipidemia, unspecified; R41.82 Altered mental status, unspecified; R00.1 Bradycardia, unspecified; I48.91 Unspecified atrial fibrillation; Z79.82 Long term (current) use of aspirin; Z79.02 Long term (current) use of antithrombotics/antiplatelets; Z79.84 Long term (current) use of oral hypoglycemic drugs; Z79.899 Other long term (current) drug therapy; Z88.8 Allergy status to other drugs, medicaments and biological substances; Z85.3 Personal history of malignant neoplasm of breast; Z95.820 Peripheral vascular angioplasty status with implants and grafts; Z90.12 Acquired absence of left breast and nipple; I69.892 Facial weakness following other cerebrovascular disease
CPT/HCPCS: 36415; 36416; 36430; 71045; 71275; 74177; 80048; 80053; 80503; 81001; 82607; 82728; 82746; 82962; 83540; 83550; 83605; 83880; 85025; 85045; 85610; 85730; 86850; 86900; 86920; 87040; 87077; 87150; 87186; 87205; 93005; 94664; 96365; 96372; 97161; 99285; 99291; 99292; J1815; J1938; J2470; J2916; J9999; P9016; P9040

== ENCOUNTER → 2025-04-02 09:46 | Outpatient (BNVA) | payer MEDICARE, OTHER, SELFPAY | PROVIDERS: PCP Family Medicine; Visit Provider Family Medicine | DX: D64.9 Anemia, unspecified (principal) | CPT/HCPCS: 85025 ==